=== PATIENT | female | born 1985 | race Caucasian/White ===

== ENCOUNTER → 2017-12-08 09:49 | Outpatient (CLI) | payer OTHER, SELFPAY ==
[2017-12-08 14:32] LABS: Amphetamine/Metha Screen,Urine Negative ng/mL (<1000); Barbiturates Screen,Urine Negative ng/mL (<200); Benzodiazepines Screen,Urine Positive ng/mL (200); Cannabinoid Screen,Urine Positive ng/mL (<50); Cocaine Screen,Urine Negative ng/g (<300); Methadone Screen,Urine Negative ng/mL (<300); Opiate Screen,Urine Negative ng/mL (<300); Phencyclidine Screen,Urine Negative ng/mL (<25)
== END ==
PROVIDERS: Visit Provider Emergency Medicine
DX: Z79.899 Other long term (current) drug therapy (principal)
CPT/HCPCS: 80305

== ENCOUNTER → 2018-03-07 10:49 | Outpatient (REF) | payer OTHER, SELFPAY ==
[2018-03-07 14:10] LABS: Amphetamine/Metha Screen,Urine Negative ng/mL (<1000); Barbiturates Screen,Urine Negative ng/mL (<200); Benzodiazepines Screen,Urine Positive ng/mL (200); Cannabinoid Screen,Urine Positive ng/mL (<50); Cocaine Screen,Urine Negative ng/g (<300); Methadone Screen,Urine Negative ng/mL (<300); Opiate Screen,Urine Negative ng/mL (<300); Phencyclidine Screen,Urine Negative ng/mL (<25)
== END ==
LOC: LAB 10:49
PROVIDERS: Visit Provider Emergency Medicine
DX: Z79.899 Other long term (current) drug therapy (principal)
CPT/HCPCS: 80305

== ENCOUNTER → 2018-05-29 15:49 | Outpatient (REF) | payer OTHER, SELFPAY ==
[2018-05-29 18:23] LABS: Amphetamine/Metha Screen,Urine Negative ng/mL (<1000); Barbiturates Screen,Urine Negative ng/mL (<200); Benzodiazepines Screen,Urine Positive ng/mL (<200); Cannabinoid Screen,Urine Positive ng/mL (<50); Cocaine Screen,Urine Negative ng/mL (<300); Methadone Screen,Urine Negative ng/mL (<300); Opiate Screen,Urine Negative ng/mL (<300); Phencyclidine Screen,Urine Negative ng/mL (<25)
== END ==
LOC: LAB 15:49
PROVIDERS: Visit Provider Nurse Practitioner Family
DX: Z79.899 Other long term (current) drug therapy (principal)
CPT/HCPCS: 80305

== ENCOUNTER → 2018-08-24 17:47 | Outpatient (CLI) | payer OTHER, SELFPAY ==
[2018-08-24 18:41] LABS: Basophils % 0.4 % (0.1-2.0); Eosinophils # 0.3 K/mm3 (0.0-0.4); Hematocrit 44.4 % (37.0-47.0); Hemoglobin 14.2 g/dL (12.2-16.2); Lymphocytes # 2.3 K/mm3 (0.7-4.5); Mean Corpuscular Hemoglobin 31.5 pg (27.0-31.2); Mean Corpuscular Volume 98.5 fl (81-99); Mean Platelet Volume 9.3 fl (7.4-10.4); Monocytes # 0.4 K/mm3 (0.1-1.0); Monocytes % 5.8 % (1.7-9.3); Neutrophils # 3.4 K/mm3 (1.8-7.8); Neutrophils % 52.8 % (37.0-80.0); Platelet Count 59 K/mm3 (142-424); Red Blood Count 4.51 M/mm3 (4.20-5.40); Red Cell Distribution Width 13.1 % (11.5-17.5); White Blood Count 6.4 K/mm3 (4.8-10.8)
[2018-08-24 19:03] LABS: Alanine Aminotransferase 23 U/L (12-78); Albumin Level 3.8 gm/dL (3.4-5.0); Albumin/Globulin Ratio 1.2 (1.1-1.8); Alkaline Phosphatase 66 U/L (46-116); Anion Gap 14.1 mEq/L (5-15); Aspartate Amino Transferase 12 U/L (15-37); Bilirubin,Total 0.5 mg/dL (0.2-1.0); Blood Urea Nitrogen 8 mg/dL (7-18); Calcium 8.4 mg/dL (8.5-10.1); Carbon Dioxide 27 mmol/L (21.0-32.0); Chloride 101 mmol/L (98-107); Chol/HDL Ratio 3.4 (1-3.5); Cholesterol 191 mg/dL (140-200); Creatinine,Serum 0.67 mg/dL (0.55-1.02); Estimated Glomerular Filt Rate 103 ml/min (>60); Free T4 (Free Thyroxine) 0.81 ng/dl (0.76-1.46); GFR (African American) 125 ML/MIN (>60); Globulin 3.3 gm/dl (1.3-3.2); Glucose 87 mg/dL (74-106); HDL Cholesterol 56 mg/dL (29-89); LDL Cholesterol 117 mg/dL (0-130); Potassium 4.1 mmoL/L (3.5-5.1); Sodium 138 mmol/L (136-145); Thyroid Stimulating Hormone 0.79 uIU/ml (0.358-3.740); Total Protein,Serum 7.1 gm/dL (6.4-8.2); Triglycerides 91 mg/dL (30-200); VLDL Cholesterol 18 mg/dL (0-40)
[2018-08-24 19:40] LABS: Amphetamine/Metha Screen,Urine Negative ng/mL (<1000); Barbiturates Screen,Urine Negative ng/mL (<200); Benzodiazepines Screen,Urine Positive ng/mL (<200); Cannabinoid Screen,Urine Positive ng/mL (<50); Cocaine Screen,Urine Negative ng/mL (<300); Methadone Screen,Urine Negative ng/mL (<300); Opiate Screen,Urine Negative ng/mL (<300); Phencyclidine Screen,Urine Negative ng/mL (<25)
[2018-08-27 11:18] LABS: Vitamin D 25 Hydroxy 16.4 ng/mL (30.0-100.0)
== END ==
PROVIDERS: Visit Provider Emergency Medicine
DX: I10 Essential (primary) hypertension (principal); Z79.899 Other long term (current) drug therapy
CPT/HCPCS: 80053; 80061; 80305; 82652; 84439; 84443; 85025

== ENCOUNTER → 2018-11-23 17:52 | Outpatient (CLI) | payer OTHER, SELFPAY ==
[2018-11-23 19:23] LABS: Amphetamine/Metha Screen,Urine Negative ng/mL (<1000); Barbiturates Screen,Urine Negative ng/mL (<200); Benzodiazepines Screen,Urine Positive ng/mL (<200); Cannabinoid Screen,Urine Positive ng/mL (<50); Cocaine Screen,Urine Negative ng/mL (<300); Methadone Screen,Urine Negative ng/mL (<300); Opiate Screen,Urine Negative ng/mL (<300); Phencyclidine Screen,Urine Negative ng/mL (<25)
== END ==
PROVIDERS: Visit Provider Emergency Medicine
DX: Z79.899 Other long term (current) drug therapy (principal)
CPT/HCPCS: 80305

== ENCOUNTER 2021-06-29 15:10 | Emergency (ER) | payer OTHER, SELFPAY ==
[2021-06-29 15:25] VITALS: BP 114/62; PULSE 82; RESP 16; TEMP 36.9; O2SAT 99; BMI 23.0
--- NOTE | 2021-06-29 16:06 | HMH.EDUTC ---
[facility] [place] Disposition Clinical Impression: Low back pain Qualifiers: Chronicity: acute Back pain laterality: left Sciatica presence: with sciatica Sciatica laterality: sciatica of left side Qualified Code(s): M54.42 - Lumbago with sciatica, left side Disposition: Home, Self-Care Condition on Discharge: Good Instructions: Low Back Pain, DI for Low Back Pain Additional Instructions: Go home and rest. It would be best if you rested tomorrow too. No heavy lifting. No twisting. Take the oral medications as directed. The muscle relaxer (cyclobenzaprine--Flexeril) will make you drowsy, so don't drive or operate heavy machinery after taking it. Follow up with your regular doctor. GO TO THE ER FOR ANY WORSENING SYMPTOMS OR CONCERN, ESPECIALLY BOWEL OR BLADDER ISSUES, SADDLE AREA NUMBNESS, FEVER, ETC Prescriptions: Cyclobenzaprine HCl [Cyclobenzaprine 10mg Tab] 10 mg PO BIDP PRN #20 tab PRN Reason: Muscle Spasm Transmission Status: Pending to [facility] Naproxen [Naproxen 500mg tab] 500 mg PO BIDP PRN #30 tab PRN Reason: Moderate Pain Transmission Status: Pending to [facility] Referrals: Juan Pang MD [Primary Care Provider] - Time of Disposition: 16:12 Medical Decision Making - Medical Records Medical records reviewed: No: I reviewed the patient's medical records. - Jaya Inquiry Pt receiving controlled substance: No Vital Signs: 06/29/21 15:25 Temperature 98.5 F Temperature Source Oral Pulse Rate [Left] 82 Respiratory Rate 16 Blood Pressure [Right Arm] 114/62 Blood Pressure Mean [Right Arm] 79 02 Sat by Pulse Oximetry 99 Orders (Tests/Meds): ED MEDICATIONS Discontinued Medications Generic Name Dose Route Start Last Admin Trade Name Freq PRN Reason Stop Dose Admin Ketorolac Tromethamine 60 mg 06/29/21 15:58 Ketorolac 60mg/2ml Vial IM 06/29/21 15:59 ONCE ONE [facility] [place] HPI - General Stated complaint: a/o 06/26 back injury Time Seen by Provider: 06/29/21 16:06 Mode of Arrival: Ambulatory Source of Information: Patient Limitations: No Limitations Description of Symptoms (Recalled from Triage Doc. by RN): pt was taking a pool down monday and is now having lower back pain. HEENT Symptoms (Recalled from RN notes): No Resp Symptoms (Recalled from RN notes): No Skin Symptoms (Recalled from RN notes): No MS Symptoms (Recalled from RN notes): Yes (lower back pain) Functional Status (Recalled from RN notes): na - History of Present Illness Provider Complaint: She states that for the past 3 days she has had low back pain. She was lifting one of her children when she felt something pull in her left lower back. Not long after that she began to have low back pain that radiates down her left leg. She denies any bowel or bladder issues. She denies any saddle area numbness. - Related Data Previous Rx's Medication Instructions Recorded loratadine 10 mg tablet See Rx Instructions .ROUTE 02/18/19 .COMPLEX #90 tab guaiFENesin [Mucinex 600mg tablet] 1 - 2 tab PO BIDP PRN #30 12/24/19 tab.er.12h baclofen 10 mg tablet 10 mg PO BID #30 tab 07/09/20 cholecalciferol (vitamin D3) 25 See Rx Instructions .ROUTE 07/23/20 mcg (1,000 unit) tablet .COMPLEX #90 each hydroxyzine HCl 25 mg tablet See Rx Instructions .ROUTE 03/29/21 .COMPLEX #90 tab omeprazole 20 mg capsule,delayed See Rx Instructions .ROUTE 03/29/21 release .COMPLEX #90 cap fluticasone propionate 50 See Rx Instructions .ROUTE 04/12/21 mcg/actuation nasal .COMPLEX #16 gram spray,suspension alprazolam 0.5 mg tablet 0.5 mg PO TID #90 tab 05/26/21 bisoprolol fumarate 5 mg tablet See Rx Instructions .ROUTE 05/26/21 .COMPLEX #90 tab divalproex 250 mg tablet,delayed 250 mg PO DAILY #90 tab 05/26/21 release divalproex 500 mg tablet,delayed 500 mg PO HS #90 tab 05/26/21 release ergocalciferol (vitamin D2) 1,250 See Rx Instructions .ROUTE 05/26/21 mcg (50,000 unit) capsule .COMPLEX #14 ca
[2021-06-29 16:23] VITALS: BP 114/62; PULSE 82; RESP 18; TEMP 36.9
== END 2021-06-29 16:26 | disposition home or self-care (01) ==
PROVIDERS: Emergency Provider Nurse Practitioner Family; PCP Emergency Medicine
DX: M54.42 Lumbago with sciatica, left side (principal); K21.9 Gastro-esophageal reflux disease without esophagitis; I10 Essential (primary) hypertension; F41.9 Anxiety disorder, unspecified; F17.210 Nicotine dependence, cigarettes, uncomplicated
CPT/HCPCS: 96372; 99202; G0463

== ENCOUNTER → 2021-10-27 14:36 | Outpatient (CLI) | payer OTHER, SELFPAY | PROVIDERS: Visit Provider Nurse Practitioner | DX: U07.1 COVID-19 (principal) | CPT/HCPCS: C9803; U0003; U0005 ==

== ENCOUNTER 2021-11-17 09:33 | Emergency (ER) | payer OTHER, SELFPAY ==
--- NOTE | 2021-11-17 09:54 | XR_ITS ---
FINAL REPORT CLINICAL HISTORY: pain FINDINGS: Three views were obtained. There is no acute fracture. There is no malalignment. The disc spaces are maintained. IMPRESSION: No acute process. Reviewed, Interpreted and Dictated by Kwadwo Giron III, MD Transcribed by Daniel Fierro Authenticated by Kwadwo Giron III, MD on 11/17/2021 03:23:00 PM [facility]
[2021-11-17 09:57] VITALS: BP 123/82; PULSE 91; RESP 18; TEMP 36.8; O2SAT 98; BMI 23.3
--- NOTE | 2021-11-17 10:14 | HMH.EDUTC ---
[facility] [place] Clinical Impression: Low back pain Qualifiers: Chronicity: unspecified Back pain laterality: midline Sciatica presence: without sciatica Qualified Code(s): M54.50 - Low back pain, unspecified Disposition: Home, Self-Care Condition on Discharge: Good Instructions: Low Back Pain (Alternative Therapy), DI for Muscle Spasm Additional Instructions: *Etodolac rafa 8 hours with meal as needed for pain/inflammation *Remember you had a Toradol shot in the clinic today, which is similar to Etodolac so do not start until 9pm tonight *Not additional anti-inflammatory like Ibuprofen motrin, aleve, advil with the above amount of Etodolac. You can still take Tylenol every 4 hours as needed if you need something else for pain *Ice 20 minutes every 2 hours for the first 48 hours after the initial injury followed by moist heat every 20 minutes 3-4 times a day to affected area *Muscle relaxer every 8 hours as needed for muscle spasms but remember, it WILL cause drowsiness You cannot take it and drive, operate machinery or care for small children. *Keep this area active, no movement leads to more stiffness, However take it easy and avoid heavy lifting pushing or pulling *Follow up with you family doctor if no improvement for further treatment Prescriptions: Etodolac 200 mg PO Q8HP PRN #15 cap PRN Reason: Moderate Pain Transmission Status: Pending to [facility] Cyclobenzaprine HCl [Flexeril 10mg tablet] 10 mg PO TID PRN #15 tab PRN Reason: Muscle Spasm Transmission Status: Pending to [facility] Referrals: Juan Pang MD [Primary Care Provider] - As needed Time of Disposition: 11:05 Medical Decision Making - Jaya Inquiry Pt receiving controlled substance: No Jaya was queried for this patient: No Vital Signs: 11/17/21 09:57 Temperature 98.2 F Temperature Source Oral Pulse Rate [Left] 91 H Respiratory Rate 18 Blood Pressure [Right Arm] 123/82 Blood Pressure Mean [Right Arm] 95 02 Sat by Pulse Oximetry 98 Orders (Tests/Meds): ED MEDICATIONS Discontinued Medications Generic Name Dose Route Start Last Admin Trade Name Freq PRN Reason Stop Dose Admin Ketorolac Tromethamine 60 mg 11/17/21 10:24 11/17/21 10:48 Ketorolac 60mg/2ml Vial IM 02/09/22 10:25 60 mg ONCE ONE [facility] ORDERS Category Date Time Status XR lumbar spine 2-3V Stat Exams 11/17/21 09:54 Taken - Radiology Data #1 Image(s): L-Spine Image Reviewed: Yes I reviewed the patient's radiology image w/the ED provider Preliminary Findings: Normal/NAD, No Fracture Seen Medical Decision Narrative: Patient states that she has taken NSAIDS and Flexeril in the past without complications or reactions [facility] [place] - General Stated complaint: lower back pain Time Seen by Provider: 11/17/21 10:14 Mode of Arrival: Ambulatory Source of Information: Patient Limitations: No Limitations Description of Symptoms (Recalled from Triage Doc. by RN): pt c/o lower back pain after bending over 2 days ago. HEENT Symptoms (Recalled from RN notes): No Resp Symptoms (Recalled from RN notes): No Skin Symptoms (Recalled from RN notes): No MS Symptoms (Recalled from RN notes): Yes Functional Status (Recalled from RN notes): wnl - History of Present Illness Provider Complaint: Patient states that she bent over a few days ago and she felt something pull in her lower back area States that ever since she has been having pain when she bends, sits or moves certain ways States that she feels like she cant stand straight due to pain hurting worse Denies known injury denies falling - Related Data Previous Rx's Medication Instructions Recorded loratadine 10 mg tablet See Rx Instructions .ROUTE 02/18/19 .COMPLEX #90 tab omeprazole 20 mg capsule,delayed See Rx Instructions .ROUTE 03/29/21 release .COMPLEX #90 cap fluticasone propionate 50 See Rx Instructions .ROUTE 04/12/21 mcg/actuation nasal .COMPLEX #16 gra
[2021-11-17 11:23] VITALS: BP 123/82; PULSE 91; RESP 18; TEMP 36.8
== END 2021-11-17 11:24 | disposition home or self-care (01) ==
PROVIDERS: Emergency Provider Nurse Practitioner; PCP Emergency Medicine
DX: M54.50 Low back pain, unspecified (principal); I10 Essential (primary) hypertension; F17.210 Nicotine dependence, cigarettes, uncomplicated; K21.9 Gastro-esophageal reflux disease without esophagitis
CPT/HCPCS: 72100; 96372; 99203; G0463

== ENCOUNTER → 2021-12-17 08:14 | Outpatient (CLI) | payer OTHER, SELFPAY ==
--- NOTE | 2021-12-17 08:15 | MR_ITS ---
FINAL REPORT CLINICAL HISTORY: chronic lbp x's months. nki. pt is unable to lay down on back. radiculopathy. FINDINGS: Multiplanar MR imaging of the lumbar spine was performed without contrast. On the sagittal T2-weighted images, disc degeneration is seen at L5-S1 with there is also disc space narrowing. A hemangioma is seen in the T12 vertebral body. The vertebral alignment is normal. There is no evidence of fracture. No bony mass is identified. The conus is seen at approximately the L1 level and has an unremarkable appearance. L1-2: There is no significant canal stenosis or neural foraminal narrowing. L2-3: There is no significant canal stenosis or neural foraminal narrowing. L3-4: There is no significant canal stenosis or neural foraminal narrowing. L4-5: There is an annular disc bulge without significant canal stenosis or neural foraminal narrowing. L5-S1: Annular disc bulge and right paracentral extruded disc. There is right S1 nerve root impingement and right lateral recess stenosis. There is severe central canal stenosis with AP diameter of the thecal sac measuring 4 mm. There is moderate right and mild left neuroforaminal narrowing. IMPRESSION: Multilevel degenerative disc disease with right paracentral extruded disc at L5-S1 with right S1 nerve root impingement,, right lateral recess stenosis and severe central canal stenosis. Reviewed, Interpreted and Dictated by Kwadwo Giron III, MD Transcribed by Sarah Kraft Authenticated by Kwadwo Giron III, MD on 12/17/2021 12:54:07 PM [facility]
== END ==
PROVIDERS: PCP Emergency Medicine; Visit Provider Emergency Medicine
DX: M54.50 Low back pain, unspecified (principal)
CPT/HCPCS: 72148; 76376

== ENCOUNTER → 2022-01-26 10:13 | Outpatient (CLI) | payer OTHER, SELFPAY ==
[2022-01-26 15:16] LABS: Amphetamine/Metha Screen,Urine Negative ng/ml (<1000)
[2022-01-26 15:17] LABS: Barbiturates Screen,Urine Negative ng/ml (<200); Benzodiazepines Screen,Urine Positive ng/ml (<200)
[2022-01-26 15:18] LABS: Cannabinoid Screen,Urine Positive ng/ml (<50); Cocaine Screen,Urine Negative ng/ml (<300)
[2022-01-26 15:19] LABS: Methadone Screen,Urine Negative ng/ml (<300)
[2022-01-26 15:21] LABS: Opiate Screen,Urine Positive ng/ml (<300)
[2022-01-26 15:22] LABS: Phencyclidine Screen,Urine Negative ng/ml (<25)
== END ==
PROVIDERS: PCP Emergency Medicine; Visit Provider Emergency Medicine
DX: M54.50 Low back pain, unspecified (principal)
CPT/HCPCS: 80305

== ENCOUNTER → 2022-03-15 14:31 | Outpatient (CLI) | payer OTHER, SELFPAY ==
--- NOTE | 2022-03-15 14:32 | CA_ITS ---
APPROVED REPORT EXAM: Comprehensive 2D, Doppler, and color-flow Echocardiogram Senior Corporate Accountant: Karma Lim, MOISES, RVS Ht: 5 ft 4 in Wt: 125lbs BSA: 1.60 BP: 112/75 mmHg Indications: Pre-op clearance- rupture lumbar disc, Family Hx-HD, SOB, HX-SVT/ablation@age 18 Echo Enhancing Agent Comments: TDS-limited acoustic window 2D Dimensions Aortic Root 2.43 cm LA Volume 24.90 mL Left Atrium 1.76 cm LA Volume Index [id number] mL/m2 (M/F) 16-34 LVOT 1.68 cm (M/F) 1.5-2.5 M-Mode Dimensions RVDd 1.45 cm (0.9-2.6) LA Diam 1.79 cm (1.9-4.0) LVDd 4.34 cm (3.5-5.7) Ao Diam 2.83 cm (2.0-3.7) LVDs 2.97 cm (3.5-5.7) IVSd 0.83 cm (0.6-1.1) PWd 0.71 cm (0.6-1.1) EF (Teich) 59.70% EPSs 0.28 cm FS 31.60% EDV (Teich) 84.90 mL TAPSE 1.91 (<1.7) ESV (Teich) 34.20 mL LV Diastology E Decel Time 257.00 (160-240 msec) E/A Ratio 2.23 MED E' 12.60 (< 7 cm/sec) MED A' 9.30 cm/s E'/MED E' Ratio 5.89 (>14) LAT E' 15.50 (<10 cm/sec) LAT A' 6.10 cm/s E/LAT E' Ratio 4.79 (>14) Aortic Valve LVOT Max 96.00 (70-110 cm/s) LVOT VTI 20.68 cm AoV Peak Manan. 116.00 (50-130 cm/s) AO Peak GR. 5.40 mmHg AO Mean GR. 2.70 (<5 mmHg) AO VTI 27.12 (18-25 cm) PINKY (VTI) 1.69 (2.5-4.5 cm2) Mitral Valve MV A Velocity 33.00 (40-130 cm/s) E/A Ratio 2.23 MV Decel. Time 257.00 (160-240 ms) Pulmonary Valve PV Peak Velocity 92.00 (50-150 cm/s) Tricuspid Valve TR P. Velocity 160.00 cm/s Left Ventricle Left atrium normal size, left ventricle is normal size, no concentric left ventricular hypertrophy, estimated ejection fraction 55% with no regional wall motion abnormality, diastolic parameters are within normal range. Right Ventricle Right atrium and right ventricle are normal size and contractility. Aortic Valve Aortic valve is grossly normal there is no aortic stenosis or aortic insufficiency. Mitral Valve Mitral valve grossly normal, there is no mitral stenosis or mitral regurgitation. Tricuspid Valve Tricuspid valve grossly normal, there is no tricuspid stenosis or tricuspid regurgitation. Pulmonic Valve Pulmonic valve is poorly visualized. Great Vessels Aortic root is normal size. Inferior vena cava is normal size with normal inspiratory collapse. Pericardium No significant pericardial effusion noted. Conclusion 1. Normal left ventricular size preserved left ventricular systolic function, estimated ejection fraction 55% with no regional wall motion abnormality, diastolic parameters are within normal range. 2. No significant pericardial effusion. 3. Inferior vena cava is normal size with normal inspiratory collapse. Electronically signed by : Librado Vuong MD 03/16/2022 12:17:29
--- NOTE | 2022-03-15 14:46 | XR_ITS ---
FINAL REPORT CLINICAL HISTORY: Patient to have back surgery for buldging disc. She had lab work done which revealed elevated white blood cell count. She is a smoker and has had a cardiac ablation. FINDINGS: Two views of the chest were obtained. The heart size and pulmonary vascularity are within normal limits. The mediastinum is normal. No acute pulmonary abnormality is identified. There is no pneumothorax. The bony thorax is intact. IMPRESSION: No active cardiopulmonary disease. Reviewed, Interpreted and Dictated by Kwadwo Giron III, MD Transcribed by Marcie Lee Authenticated and [facility]
[2022-03-15 16:00] LABS: Basophils # 0.1 K/mm3 (0-0.2); Basophils % 0.7 % (0.1-2.0); Eosinophils # 0.1 K/mm3 (0.0-0.4); Eosinophils % 1.2 % (0.1-12.0); Hematocrit 42.4 % (37.0-47.0); Lymphocytes # 2.2 K/mm3 (0.7-4.5); Lymphocytes % 21.7 % (10-50); Mean Corpuscular Hemoglobin 32.5 pg (27.0-31.2); Mean Corpuscular Volume 98.5 fl (81-99); Monocytes # 0.4 K/mm3 (0.1-1.0); Monocytes % 4.3 % (1.7-9.3); Neutrophils # 7.2 K/mm3 (1.8-7.8); Neutrophils % 72.1 % (37.0-80.0); Platelet Count 338 K/mm3 (142-424); Red Cell Distribution Width 13.3 % (11.5-17.5)
== END ==
PROVIDERS: Orthopaedic Surgery; PCP Emergency Medicine; Visit Provider Physician Assistant
DX: Z01.818 Encounter for other preprocedural examination (principal); R07.9 Chest pain, unspecified; I47.1 Supraventricular tachycardia
CPT/HCPCS: 36415; 71046; 85025; 93306

== ENCOUNTER → 2022-03-24 06:57 | Outpatient (CLI) | payer OTHER, SELFPAY ==
[2022-03-23 18:30] LABS: Amphetamine/Metha Screen,Urine Negative ng/ml (<1000); Barbiturates Screen,Urine Negative ng/ml (<200)
[2022-03-23 18:32] LABS: Benzodiazepines Screen,Urine Positive ng/ml (<200)
[2022-03-23 18:33] LABS: Cannabinoid Screen,Urine Positive ng/ml (<50); Cocaine Screen,Urine Negative ng/ml (<300)
[2022-03-23 18:34] LABS: Methadone Screen,Urine Negative ng/ml (<300)
[2022-03-23 18:35] LABS: Opiate Screen,Urine Positive ng/ml (<300); Phencyclidine Screen,Urine Negative ng/ml (<25)
== END ==
PROVIDERS: PCP Emergency Medicine; Visit Provider Emergency Medicine
DX: Z79.899 Other long term (current) drug therapy (principal)
CPT/HCPCS: 80305

== ENCOUNTER → 2022-05-20 16:21 | Outpatient (CLI) | payer OTHER, SELFPAY ==
[2022-05-20 16:08] LABS: Amphetamine/Metha Screen,Urine Negative ng/ml (<1000)
[2022-05-20 16:09] LABS: Barbiturates Screen,Urine Negative ng/ml (<200)
[2022-05-20 16:11] LABS: Benzodiazepines Screen,Urine Positive ng/ml (<200); Cannabinoid Screen,Urine Positive ng/ml (<50)
[2022-05-20 16:12] LABS: Cocaine Screen,Urine Negative ng/ml (<300)
[2022-05-20 16:13] LABS: Methadone Screen,Urine Negative ng/ml (<300); Opiate Screen,Urine Positive ng/ml (<300)
[2022-05-20 16:14] LABS: Phencyclidine Screen,Urine Negative ng/ml (<25)
== END ==
PROVIDERS: Visit Provider Emergency Medicine
DX: M47.816 Spondylosis without myelopathy or radiculopathy, lumbar region (principal)
CPT/HCPCS: 80305

== ENCOUNTER 2022-05-31 18:45 | Emergency (ER) | payer OTHER, SELFPAY ==
[2022-05-31 19:23] VITALS: BP 129/84; PULSE 86; RESP 16; TEMP 36.8; O2SAT 99; BMI 19.3
[2022-05-31 19:25] LABS: UTC Influenza A Antigen Negative (Negative)
[2022-05-31 19:25] LABS: UTC Strep Screen (Rapid) Positive (Negative)
[2022-05-31 19:26] LABS: UTC Influenza B Antigen Negative (Negative)
--- NOTE | 2022-05-31 19:47 | HMH.EDUTC ---
[facility] [place] Clinical Impression: Viral syndrome, Exposure to COVID-19 virus Disposition: Home, Self-Care Condition on Discharge: Good Instructions: DI for COVID-19 (Suspected or Confirmed ), Preventing the Spread of Coronavirus Discharge Instructions Additional Instructions: Drink plenty of fluids. Take tylenol or ibuprofen for pain or fever. Take the medications as directed. Follow up with your regular doctor. GO TO THE ER FOR ANY WORSENING SYMPTOMS Quarantine until you know the results of your covid-19 test. Notify your school or workplace of your results and follow their instructions regarding return to work/school. Prescriptions: Ondansetron [Zofran 4mg ODT] 4 mg PO Q8HP PRN #12 tab PRN Reason: Nausea Transmission Status: Received by [facility] Benzonatate [Benzonatate 100mg cap] 100 mg PO TIDP PRN #30 cap PRN Reason: Cough Transmission Status: Received by [facility] Referrals: Juan Pang MD [Primary Care Provider] - Time of Disposition: 19:49 Medical Decision Making - Medical Records Medical records reviewed: No: I reviewed the patient's medical records. - Jaya Inquiry Pt receiving controlled substance: No Vital Signs: 05/31/22 19:23 05/31/22 19:52 Temperature 98.3 F 98.3 F Temperature Source Oral Pulse Rate 86 Pulse Rate [Left] 86 Respiratory Rate 16 16 Blood Pressure 129/84 Blood Pressure [Right Arm] 129/84 Blood Pressure Mean [Right Arm] 99 02 Sat by Pulse Oximetry 99 - Lab Data Lab Results 05/31/22 19:17: Strep Scn Rapid Clinic Positive A 05/31/22 19:18: Influenza Type A Ag Negative, Influenza Type B Ag Negative Orders (Tests/Meds): ORDERS Category Date Time Status Covid-19 Nasal PCR ([facility]) Routine Lab 05/31/22 19:06 Received [facility] [place] HPI - General Stated complaint: exposed covid test sore throat,CHANEY Bronson Time Seen by Provider: 05/31/22 19:48 Mode of Arrival: Ambulatory Source of Information: Patient Limitations: No Limitations Description of Symptoms (Recalled from Triage Doc. by RN): patient comes in with fever, chills, body aches, headache. symptoms have been ongoing since monday. HEENT Symptoms (Recalled from RN notes): Yes Resp Symptoms (Recalled from RN notes): Yes Skin Symptoms (Recalled from RN notes): No MS Symptoms (Recalled from RN notes): No Functional Status (Recalled from RN notes): n/a - History of Present Illness Provider Complaint: She states that for the past 2 day she has had sinus congestion and she has felt bad. - Related Data Previous Rx's Medication Instructions Recorded fluticasone propionate 50 See Rx Instructions .ROUTE 04/12/21 mcg/actuation nasal .COMPLEX #16 gram spray,suspension cholecalciferol (vitamin D3) 25 See Rx Instructions .ROUTE 07/28/21 mcg (1,000 unit) tablet .COMPLEX #90 tablet diclofenac sodium 1 % topical gel 2 g TOPICAL QID #100 g 12/08/21 lidocaine 5 % topical patch 1 patch TOPICAL DAILY #30 each 12/08/21 tizanidine 4 mg tablet 4 mg PO TID #63 tab 12/08/21 bisoprolol fumarate 5 mg tablet See Rx Instructions .ROUTE 02/17/22 .COMPLEX #90 tab ergocalciferol (vitamin D2) 1,250 See Rx Instructions .ROUTE 03/18/22 mcg (50,000 unit) capsule .COMPLEX #14 cap omeprazole 20 mg capsule,delayed See Rx Instructions .ROUTE 03/18/22 release .COMPLEX #90 cap alprazolam 0.5 mg tablet 0.5 mg PO TID #90 tab 05/12/22 divalproex 250 mg tablet,delayed 250 mg PO DAILY #90 tab 05/12/22 release divalproex 500 mg tablet,delayed 500 mg PO HS #90 tab 05/12/22 release quetiapine 100 mg tablet See Rx Instructions .ROUTE 05/12/22 .COMPLEX #150 tab hydrocodone 7.5 mg-acetaminophen 1 tab PO QID PRN #120 tab 05/20/22 325 mg tablet Benzonatate [Benzonatate 100mg 100 mg PO TIDP PRN #30 cap 05/31/22 cap] Ondansetron [Zofran 4mg ODT] 4 mg PO Q8HP PRN #12 tab 05/31/22 Allergies Allergy/AdvReac Type Severity Reaction Status Date / Time meperidine [
[2022-05-31 19:52] VITALS: BP 129/84; PULSE 86; RESP 16; TEMP 36.8
== END 2022-05-31 19:53 | disposition home or self-care (01) ==
PROVIDERS: Emergency Provider Nurse Practitioner Family; PCP Emergency Medicine
DX: U07.1 COVID-19 (principal)
CPT/HCPCS: 87804; 87880; 99212; C9803; G0463; U0003; U0005

== ENCOUNTER → 2022-07-18 11:45 | Outpatient (CLI) | payer OTHER, SELFPAY ==
[2022-07-18 15:17] LABS: Amphetamine/Metha Screen,Urine Negative ng/ml (<1000); Barbiturates Screen,Urine Negative ng/ml (<200)
[2022-07-18 15:18] LABS: Benzodiazepines Screen,Urine Positive ng/ml (<200); Cannabinoid Screen,Urine Positive ng/ml (<50)
[2022-07-18 15:19] LABS: Cocaine Screen,Urine Negative ng/ml (<300)
[2022-07-18 15:20] LABS: Methadone Screen,Urine Negative ng/ml (<300); Opiate Screen,Urine Positive ng/ml (<300)
[2022-07-18 15:21] LABS: Phencyclidine Screen,Urine Negative ng/ml (<25)
== END ==
PROVIDERS: PCP Emergency Medicine; Visit Provider Emergency Medicine
DX: Z79.899 Other long term (current) drug therapy (principal)
CPT/HCPCS: 80305

== ENCOUNTER → 2022-08-22 13:25 | Outpatient (CLI) | payer OTHER, SELFPAY ==
[2022-08-22 18:17] LABS: Benzodiazepines Screen,Urine Positive ng/ml (<200)
[2022-08-22 18:18] LABS: Barbiturates Screen,Urine Negative ng/ml (<200)
[2022-08-22 18:19] LABS: Cannabinoid Screen,Urine Positive ng/ml (<50); Methadone Screen,Urine Negative ng/ml (<300)
[2022-08-22 18:20] LABS: Cocaine Screen,Urine Negative ng/ml (<300)
[2022-08-22 18:21] LABS: Opiate Screen,Urine Positive ng/ml (<300); Phencyclidine Screen,Urine Negative ng/ml (<25)
[2022-08-22 18:25] LABS: Amphetamine/Metha Screen,Urine Negative ng/ml (<1000)
== END ==
PROVIDERS: PCP Emergency Medicine; Visit Provider Emergency Medicine
DX: Z79.899 Other long term (current) drug therapy (principal)
CPT/HCPCS: 80305

== ENCOUNTER → 2022-09-09 08:11 | Outpatient (CLI) | payer OTHER, SELFPAY ==
--- NOTE | 2022-09-09 08:11 | MR_ITS ---
FINAL REPORT CLINICAL HISTORY: Follow up imaging from surgery. RIGHT SIDED LOW BACK PAIN. RIGHT LEG PAIN. NO INJURY OR TRAUMA. COMPARISON: December 2021 FINDINGS: Multiplanar MR imaging of the lumbar spine was performed without contrast. On the sagittal T2-weighted images, there is abnormal decreased signal in the L5-S1 disc. The vertebrae are of normal height. The vertebral alignment is normal. L1-2: There is no significant canal stenosis or neural foraminal narrowing. L2-3: There is no significant canal stenosis or neural foraminal narrowing. L3-4: Moderate facet hypertrophy. There is no significant canal stenosis or neural foraminal narrowing. L4-5: Moderate facet hypertrophy. There is no significant canal stenosis or neural foraminal narrowing. L5-S1: The previous large right paracentral disc extrusion shows significant improvement. There is now a broad-based midline and right paracentral disc protrusion with mild compromise on the spinal canal. Postcontrast imaging was not obtained. IMPRESSION: Interval improvement in previous large right paracentral disc extrusion with persistent broad-based midline and right paracentral disc protrusion and mild compromise on the spinal canal. Reviewed, Interpreted and Dictated by Kvng Alarcon MD Transcribed by Daniel Fierro Authenticated and [facility]
== END ==
PROVIDERS: PCP Emergency Medicine; Visit Provider Emergency Medicine
DX: M54.50 Low back pain, unspecified (principal); M47.816 Spondylosis without myelopathy or radiculopathy, lumbar region
CPT/HCPCS: 72148; 76376

== ENCOUNTER → 2022-09-14 14:00 | Outpatient (CLI) | payer OTHER, SELFPAY ==
[2022-09-14 18:09] LABS: Alanine Aminotransferase 21 U/L (12-78); Albumin/Globulin Ratio 1.5 (1.1-1.8); Alkaline Phosphatase 109 U/L (38-126); Anion Gap 10.5 mEq/L (5-15); Aspartate Amino Transferase 34 U/L (14-36); Blood Urea Nitrogen 9 mg/dl (7-17); Calcium 9.4 mg/dl (8.4-10.2); Carbon Dioxide 24 mmol/L (22.0-30.0); Chloride 105 mmol/L (98-107); Chol/HDL Ratio 3.4 (1-3.5); Cholesterol 195 mg/dl (140-200); Estimated Glomerular Filt Rate 96 ml/min (>60); GFR (African American) 116 ML/MIN (>60); Globulin 2.6 g/dL (1.3-3.2); Glucose 107 mg/dl (74-100); HDL Cholesterol 58 mg/dl (40-60); Potassium 4.5 mmoL/L (3.5-5.1); Sodium 135 mmol/L (136-145); Total Protein,Serum 6.6 g/dl (6.3-8.2); Triglycerides 104 mg/dl (30-150); VLDL Cholesterol 21 mg/dL (0-40)
[2022-09-14 18:21] LABS: Direct LDL Cholesterol 106.49 mg/dL (100-129)
[2022-09-14 18:22] LABS: Bilirubin,Total < 0.1 mg/dl (0.2-1.3)
[2022-09-14 18:40] LABS: Thyroid Stimulating Hormone 1.08 uIU/mL (0.465-4.68)
== END ==
PROVIDERS: PCP Emergency Medicine; Visit Provider Emergency Medicine
DX: I10 Essential (primary) hypertension (principal); Z79.899 Other long term (current) drug therapy
CPT/HCPCS: 80053; 80061; 84439; 84443

== ENCOUNTER 2022-11-22 09:22 | Emergency (ER) | payer OTHER, SELFPAY ==
[2022-11-22 09:30] LABS: UTC Strep Screen (Rapid) Positive (Negative)
--- NOTE | 2022-11-22 09:31 | EXP.UTC ---
Discharge Plan Disposition Patient Disposition: Home, Self-Care Condition: Good Prescriptions Prescriptions: New cephalexin 500 mg capsule 500 mg PO BID 10 Days Qty: 20 0RF No Action divalproex 500 mg tablet,delayed release (DR/EC) 500 mg PO HS Qty: 90 0RF divalproex 250 mg tablet,delayed release (DR/EC) 250 mg PO DAILY Qty: 90 0RF quetiapine 100 mg tablet See Rx Instructions .ROUTE .COMPLEX Qty: 150 1RF Rx Instructions: 5 tablets at night diclofenac sodium 1 % gel 2 g TOPICAL QID Qty: 100 0RF Rx Instructions: apply to single elbow, wrist or hand; for hand includes palm/fingers/back of hand lidocaine 5 % adhesive patch,medicated 1 patch TOPICAL DAILY Qty: 30 0RF Rx Instructions: leave on most painful area for up to 12 hrs meloxicam 15 mg tablet 15 mg PO DAILY PRN alprazolam 0.5 mg tablet 0.5 mg PO TID Qty: 90 1RF hydrocodone-acetaminophen 7.5-325 mg tablet 1 tab PO QID PRN (Reason: pain) Qty: 120 0RF fluticasone propionate 50 mcg/actuation spray,suspension See Rx Instructions .ROUTE .COMPLEX Qty: 16 2RF Dose Instruction: INSTILL 1 SPRAY IN EACH NOSTRIL EVERY DAY Rx Instructions: INSTILL 1 SPRAY IN EACH NOSTRIL EVERY DAY bisoprolol fumarate 5 mg tablet See Rx Instructions .ROUTE .COMPLEX Qty: 90 5RF Dose Instruction: TAKE 1 TABLET BY MOUTH EVERY DAY Rx Instructions: TAKE 1 TABLET BY MOUTH EVERY DAY ergocalciferol (vitamin D2) 1,250 mcg (50,000 unit) capsule See Rx Instructions .ROUTE .COMPLEX Qty: 14 3RF Dose Instruction: TAKE 1 CAPSULE BY MOUTH ONE TIME WEEKLY (ON THE SAME DAY EACH WEEK) Rx Instructions: TAKE 1 CAPSULE BY MOUTH ONE TIME WEEKLY (ON THE SAME DAY EACH WEEK) omeprazole 20 mg capsule,delayed release(DR/EC) See Rx Instructions .ROUTE .COMPLEX Qty: 90 5RF Dose Instruction: TAKE ONE CAPSULE BY MOUTH EVERY DAY Rx Instructions: TAKE ONE CAPSULE BY MOUTH EVERY DAY cholecalciferol (vitamin D3) 25 mcg (1,000 unit) tablet See Rx Instructions .ROUTE .COMPLEX Qty: 90 5RF Dose Instruction: TAKE ONE TABLET BY MOUTH EVERY DAY --TAKE WITH FOOD-- Rx Instructions: TAKE ONE TABLET BY MOUTH EVERY DAY --TAKE WITH FOOD-- Referrals Follow up/Referrals: Juan Pang MD [Primary Care Provider] - See instructions Activity Restrictions/Add. Instructions Additional Instructions/Restrictions: *Monitor Temp, Over the counter Motrin or Tylenol as directed/as needed Tylenol every 4 hours and Motrin every 6 hours (as long as your family doctor has told you that you can take it) for fever or pain. and straight to ER if unable to lower temp less than 101.0 after medication given *Warm salt water gargles may help to soothe the throat *Throat Lozenges? *Warm fluids like tea with honey may help to soothe the throat? *Sleep elevated *Humidifier/Vaporizer *If you did not take Penicillin shot or was unable to, start taking antibiotic immediately and make sure that you take it for the FULL length of time although you should start to feel better in 24-48 hours *change toothbrush and toothpaste 24-48 hours after starting to take antibiotics so you do not reinfect yourself Monitor Temp. Tylenol and/or Ibuprofen as needed. ER if fever is no less than 101 despite alternating Tylenol and Ibuprofen * Encourage fluids, water, Gatorade, powerade, pedialyte if /toddler/or child *Cold fluids, popsicles and ice cream may feel good on his throat Follow up IMMEDIATELY for new or worsening symptoms or no Noticeable improvement over the next 48-72 hours. 911 for difficulty breathing or swallowing Clinical Impressions Clinical Impression: Strep throat Instructions Patient Instructions: DI for Strep Throat, Strep Throat Discharge ED Provider: Scarlett Banuelos [facility] [place] HPI General Stated complaint: Sore throat Time Seen by Provider: 11/22/22 09:31 History
[2022-11-22 09:35] VITALS: BP 119/86; PULSE 86; RESP 20; TEMP 37.1; O2SAT 98; BMI 23.6
[2022-11-22 09:48] VITALS: BP 119/86; PULSE 86; RESP 20; TEMP 37.1; O2SAT 98
== END 2022-11-22 09:48 | disposition home or self-care (01) ==
PROVIDERS: Emergency Provider Nurse Practitioner; PCP Emergency Medicine
DX: J02.0 Streptococcal pharyngitis (principal)
CPT/HCPCS: 87880; 99212; 99213; G0463

== ENCOUNTER → 2023-01-04 15:45 | Outpatient (CLI) | payer OTHER, SELFPAY ==
[2023-01-04 20:01] LABS: Amphetamine/Metha Screen,Urine Negative ng/ml (<1000)
[2023-01-04 20:02] LABS: Barbiturates Screen,Urine Negative ng/ml (<200); Benzodiazepines Screen,Urine Positive ng/ml (<200)
[2023-01-04 20:03] LABS: Cannabinoid Screen,Urine Positive ng/ml (<50)
[2023-01-04 20:04] LABS: Cocaine Screen,Urine Negative ng/ml (<300); Methadone Screen,Urine Negative ng/ml (<300)
[2023-01-04 20:07] LABS: Opiate Screen,Urine Positive ng/ml (<300); Phencyclidine Screen,Urine Negative ng/ml (<25)
== END ==
PROVIDERS: PCP Emergency Medicine; Visit Provider Emergency Medicine
DX: Z79.899 Other long term (current) drug therapy (principal)
CPT/HCPCS: 80305

== ENCOUNTER → 2023-02-09 10:48 | Outpatient (CLI) | payer OTHER, SELFPAY ==
[2023-02-09 14:57] LABS: Hemoglobin A1C 5.1 % (4.0-6.0)
[2023-02-17 21:21] LABS: Free Valproic Acid (Depakote) 6.4
[2023-02-20 14:08] LABS: 7-Aminoclonazepam Negative (.); Alprazolam 15.7 ng/mL (.); Chlordiazepoxide Negative (.); Clonazepam Negative (.); Desalkylflurazepam Negative (.); Diazepam Negative (.); Flurazepam Negative (.); Lorazepam Negative (.); Midazolam Negative (.); Temazepam Negative (.)
[2023-02-21 01:07] LABS: 6-Acetylmorphine Negative (.); Codeine Negative (.); Dihydrocodeine 2.4 ng/mL (.); Hydrocodone 13.2 ng/mL (.); Morphine Negative (.); Opiate Confirmation Positive (.)
[2023-02-25 18:29] LABS: Amphetamines IA Negative; Barbituates IA Negative
[2023-02-25 18:30] LABS: Cocaine & Metabolites IA Negative; Phencyclidine IA Negative
[2023-02-25 18:31] LABS: Methadone IA Negative
[2023-03-03 12:10] LABS: Benzodiazepines IA ++POSITIVE++ ng/mL (Cutoff:20); Cannabidiol Negative (.); Cannabinoid Confirmation Positive (.); Carboxy-THC 68.5 ng/mL (.); Hydroxy-THC Negative (.); Opiates IA ++POSITIVE++ ng/mL (Cutoff:5); Oxycodone IA Negative ng/mL (Cutoff:5); Propoxyphene IA Negative ng/mL (Cutoff:50); THC (marijauna) metabolite IA ++POSITIVE++ ng/mL (Cutoff:5); Tetrahydrocannabinol 2.5 ng/mL (.)
== END ==
PROVIDERS: PCP Emergency Medicine; Visit Provider Nurse Practitioner Psychiatric/Mental Health
DX: Z79.899 Other long term (current) drug therapy (principal)
CPT/HCPCS: 36415; 80165; 80307; 83036

== ENCOUNTER → 2023-03-03 23:25 | Outpatient (CLI) | payer OTHER, SELFPAY ==
[2023-03-03 19:03] LABS: Barbiturates Screen,Urine Negative ng/ml (<200); Benzodiazepines Screen,Urine Positive ng/ml (<200)
[2023-03-03 19:04] LABS: Amphetamine/Metha Screen,Urine Negative ng/ml (<1000)
[2023-03-03 19:05] LABS: Cannabinoid Screen,Urine Positive ng/ml (<50); Cocaine Screen,Urine Negative ng/ml (<300)
[2023-03-03 19:06] LABS: Methadone Screen,Urine Negative ng/ml (<300)
[2023-03-03 19:07] LABS: Opiate Screen,Urine Positive ng/ml (<300); Phencyclidine Screen,Urine Negative ng/ml (<25)
== END ==
PROVIDERS: PCP Emergency Medicine; Visit Provider Emergency Medicine
DX: Z79.899 Other long term (current) drug therapy (principal)
CPT/HCPCS: 80305

== ENCOUNTER → 2023-05-01 23:00 | Outpatient (CLI) | payer OTHER, SELFPAY ==
[2023-05-01 18:48] LABS: Amphetamine/Metha Screen,Urine Negative ng/ml (<1000); Methadone Screen,Urine Negative ng/ml (<300)
[2023-05-01 18:49] LABS: Barbiturates Screen,Urine Negative ng/ml (<200)
[2023-05-01 18:50] LABS: Benzodiazepines Screen,Urine Positive ng/ml (<200)
[2023-05-01 18:52] LABS: Cocaine Screen,Urine Negative ng/ml (<300)
[2023-05-01 18:53] LABS: Opiate Screen,Urine Positive ng/ml (<300)
[2023-05-01 18:55] LABS: Phencyclidine Screen,Urine Negative ng/ml (<25)
[2023-05-01 19:17] LABS: Cannabinoid Screen,Urine Positive ng/ml (<50)
== END ==
PROVIDERS: PCP Emergency Medicine; Visit Provider Emergency Medicine
DX: Z79.899 Other long term (current) drug therapy (principal)
CPT/HCPCS: 80305

== ENCOUNTER → 2023-06-27 11:25 | Outpatient (CLI) | payer OTHER, SELFPAY ==
[2023-06-27 19:59] LABS: Basophils % 0.6 % (0.1-2.0); Eosinophils # 0.2 K/mm3 (0.0-0.4); Hematocrit 47.6 % (37.0-47.0); Lymphocytes # 1.7 K/mm3 (0.7-4.5); Lymphocytes % 24.8 % (10-50); Mean Corpuscular HGB Conc 31.5 g/dL (31.8-35.4); Mean Corpuscular Hemoglobin 31.8 pg (27.0-31.2); Mean Platelet Volume 8.4 fl (7.4-10.4); Monocytes # 0.5 K/mm3 (0.1-1.0); Monocytes % 7.5 % (1.7-9.3); Neutrophils # 4.3 K/mm3 (1.8-7.8); Neutrophils % 64.1 % (37.0-80.0); Platelet Count 334 K/mm3 (142-424); Red Blood Count 4.71 M/mm3 (4.20-5.40); White Blood Count 6.6 K/mm3 (4.8-10.8)
[2023-06-27 20:08] LABS: Alanine Aminotransferase 20 U/L (12-78); Albumin/Globulin Ratio 1.3 (1.1-1.8); Alkaline Phosphatase 92 U/L (38-126); Anion Gap 14.9 mEq/L (5-15); Aspartate Amino Transferase 33 U/L (14-36); Bilirubin,Total 0.2 mg/dl (0.2-1.3); Blood Urea Nitrogen 13 mg/dl (7-17); Calcium 8.7 mg/dl (8.4-10.2); Carbon Dioxide 19 mmol/L (22.0-30.0); Chloride 104 mmol/L (98-107); Chol/HDL Ratio 3.3 (1-3.5); Cholesterol 193 mg/dl (140-200); Estimated Glomerular Filt Rate 114 ml/min (>60); GFR (African American) 138 ML/MIN (>60); Glucose 113 mg/dl (74-100); HDL Cholesterol 59 mg/dl (40-60); Potassium 4.9 mmoL/L (3.5-5.1); Sodium 133 mmol/L (136-145); Triglycerides 101 mg/dl (30-150); VLDL Cholesterol 20 mg/dL (0-40)
[2023-06-27 20:19] LABS: Direct LDL Cholesterol 100.41 mg/dL (100-129)
[2023-06-27 20:25] LABS: T4 (Thyroxine) 3.9 ug/dl (5.53-11.0)
[2023-06-27 20:27] LABS: 25-OH Vitamin D, Total 22.2 ng/mL (30-100)
[2023-06-27 20:39] LABS: Thyroid Stimulating Hormone 0.86 uIU/mL (0.465-4.68)
[2023-06-27 23:19] LABS: Amphetamine/Metha Screen,Urine Negative ng/ml (<1000)
[2023-06-27 23:20] LABS: Barbiturates Screen,Urine Negative ng/ml (<200)
[2023-06-27 23:21] LABS: Benzodiazepines Screen,Urine Positive ng/ml (<200); Cannabinoid Screen,Urine Positive ng/ml (<50)
[2023-06-27 23:22] LABS: Cocaine Screen,Urine Negative ng/ml (<300)
[2023-06-27 23:23] LABS: Methadone Screen,Urine Negative ng/ml (<300); Opiate Screen,Urine Positive ng/ml (<300)
[2023-06-27 23:24] LABS: Phencyclidine Screen,Urine Negative ng/ml (<25)
== END ==
PROVIDERS: PCP Emergency Medicine; Visit Provider Emergency Medicine
DX: I10 Essential (primary) hypertension (principal); E55.9 Vitamin D deficiency, unspecified; Z79.899 Other long term (current) drug therapy
CPT/HCPCS: 80053; 80061; 80305; 82306; 84436; 84443; 85025

== ENCOUNTER → 2023-08-23 08:55 | Outpatient (CLI) | payer OTHER, SELFPAY ==
[2023-08-23 23:41] LABS: Amphetamine/Metha Screen,Urine Negative ng/ml (<1000)
[2023-08-23 23:42] LABS: Barbiturates Screen,Urine Negative ng/ml (<200)
[2023-08-23 23:43] LABS: Benzodiazepines Screen,Urine Positive ng/ml (<200)
[2023-08-23 23:44] LABS: Cocaine Screen,Urine Negative ng/ml (<300)
[2023-08-23 23:45] LABS: Methadone Screen,Urine Negative ng/ml (<300); Opiate Screen,Urine Positive ng/ml (<300)
[2023-08-24 00:01] LABS: Cannabinoid Screen,Urine Positive ng/ml (<50)
[2023-08-24 00:02] LABS: Phencyclidine Screen,Urine Negative ng/ml (<25)
== END ==
PROVIDERS: PCP Emergency Medicine; Visit Provider Emergency Medicine
DX: Z79.899 Other long term (current) drug therapy (principal)
CPT/HCPCS: 80305

== ENCOUNTER → 2023-09-06 08:13 | Outpatient (CLI) | payer OTHER, SELFPAY ==
[2023-09-06 18:47] LABS: Coronavirus 19, PCR Not Detected (NotDetected); Influenza A, PCR Not Detected (NotDetected); Influenza B, PCR Not Detected (NotDetected)
== END ==
PROVIDERS: PCP Internal Medicine; Visit Provider Internal Medicine
DX: R06.02 Shortness of breath (principal)
CPT/HCPCS: 87636

== ENCOUNTER 2023-10-17 18:27 | Outpatient (CLI) | payer OTHER, SELFPAY ==
[2023-10-17 20:54] LABS: Barbiturates Screen,Urine Negative ng/ml (<200); Benzodiazepines Screen,Urine Negative ng/ml (<200); Cannabinoid Screen,Urine Negative ng/ml (<50); Cocaine Screen,Urine Negative ng/ml (<300); Methadone Screen,Urine Negative ng/ml (<300); Opiate Screen,Urine Positive ng/ml (<300); Phencyclidine Screen,Urine Negative ng/ml (<25)
[2023-10-18 15:15] LABS: Amphetamine/Metha Screen,Urine Negative ng/ml (<1000)
== END 2023-10-17 23:59 ==
LOC: LAB.DROPOF 18:27
PROVIDERS: PCP Internal Medicine; Visit Provider Internal Medicine
DX: Z79.899 Other long term (current) drug therapy (principal)
CPT/HCPCS: 80307

== ENCOUNTER 2023-11-06 17:07 | Emergency (ER) | payer OTHER, SELFPAY ==
--- NOTE | 2023-11-06 17:10 | ECG_ITS ---
APPROVED REPORT Exam: Resting ECG HR:72 bpm ECG Measurements Heart Rate 72 AXES MD 132 P 75 QRSd 84 QRS 79 QT 372 T 91 QTc 397 Conclusion SINUS RHYTHM WITH SINUS ARRHYTHMIA NONSPECIFIC ST & T-WAVE ABNORMALITY BORDERLINE ECG UNCONFIRMED REPORT Electronically signed by : Deuce Figueroa MD 11/07/2023 16:40:17
[2023-11-06 17:20] VITALS: BP 122/78; PULSE 85; RESP 15; TEMP 36.7; O2SAT 98; BMI 19.5
--- NOTE | 2023-11-06 17:33 | XR_ITS ---
PROCEDURE INFORMATION: Exam: XR Chest Exam date and time: 11/06/2023 5:36 PM Age: 38 years old Clinical indication: Dyspnea TECHNIQUE: Imaging protocol: Radiologic exam of the chest. Views: 1 view. COMPARISON: CR XR CHEST 2V 03/15/2022 3:08 PM FINDINGS: Lungs: Unremarkable. No consolidation. Pleural spaces: Unremarkable. No pleural effusion. No pneumothorax. Heart/Mediastinum: Unremarkable. No cardiomegaly. Bones/joints: Unremarkable. IMPRESSION: No acute findings.
--- NOTE | 2023-11-06 17:35 | [facility].EDCP ---
Discharge Plan Disposition Patient Disposition: Home, Self-Care Prescriptions Prescriptions: No Action hydrocodone-acetaminophen 7.5-325 mg tablet 1 tab PO QID PRN (Reason: pain) 30 Days Qty: 120 0RF lidocaine 5 % adhesive patch,medicated 1 patch TOPICAL DAILY Qty: 30 0RF Rx Instructions: leave on most painful area for up to 12 hrs omeprazole 20 mg capsule,delayed release(DR/EC) See Rx Instructions .ROUTE .COMPLEX Qty: 90 5RF Dose Instruction: TAKE ONE CAPSULE BY MOUTH EVERY DAY Rx Instructions: TAKE ONE CAPSULE BY MOUTH EVERY DAY fluticasone propionate 50 mcg/actuation spray,suspension See Rx Instructions .ROUTE .COMPLEX Qty: 16 2RF Dose Instruction: INSTILL 1 SPRAY IN EACH NOSTRIL EVERY DAY Rx Instructions: INSTILL 1 SPRAY IN EACH NOSTRIL EVERY DAY bisoprolol fumarate 5 mg tablet See Rx Instructions .ROUTE .COMPLEX Qty: 90 5RF Dose Instruction: TAKE 1 TABLET BY MOUTH EVERY DAY Rx Instructions: TAKE 1 TABLET BY MOUTH EVERY DAY divalproex 500 mg tablet,delayed release (DR/EC) 500 mg PO HS Qty: 90 0RF cholecalciferol (vitamin D3) 1,250 mcg (50,000 unit) capsule See Rx Instructions .ROUTE .COMPLEX Qty: 5 0RF Dose Instruction: TAKE ONE CAPSULE BY MOUTH ONCE A WEEK Rx Instructions: TAKE ONE CAPSULE BY MOUTH ONCE A WEEK cholecalciferol (vitamin D3) 25 mcg (1,000 unit) tablet See Rx Instructions .ROUTE .COMPLEX Qty: 90 5RF Dose Instruction: TAKE ONE TABLET BY MOUTH EVERY DAY --TAKE WITH FOOD-- Rx Instructions: TAKE ONE TABLET BY MOUTH EVERY DAY --TAKE WITH FOOD-- quetiapine 100 mg tablet See Rx Instructions .ROUTE .COMPLEX Qty: 150 1RF Dose Instruction: TAKE FIVE TABLETS BY MOUTH EVERY NIGHT Rx Instructions: TAKE FIVE TABLETS BY MOUTH EVERY NIGHT alprazolam 0.5 mg tablet 0.5 mg PO TID Qty: 90 0RF Referrals Follow up/Referrals: Luis Martinez DO [Primary Care Provider] - See instructions Ayan Christy MD [Staff Physician] - See instructions Clinical Impressions Clinical Impression: Atypical chest pain, Dyspnea, Fatigue, WPW (Wuhuu-Blzctuzuq-Pudfp syndrome) Discharge ED Provider: Mayi Red [facility] General Chief Complaint: Chest Pain Stated Complaint: Chest Pain Time Seen by Provider: 11/06/23 17:29 Mode of Arrival: Ambulatory Source of Information: Patient Limitations: No Limitations Description of Symptoms (Recalled from ER Triage Doc. by RN): Pt. arrived to the ED with complaints of chest tightness, shortness of breath, and some sharp pains on inhalation. She has a history of WPW Syndrome. History of Present Illness HPI narrative: Patient is a 38-year-old female present today with chest pain shortness of breath. States this has been ongoing for the last 48 hours was initiated by some anxiety and stress and she felt her heart rate elevated and has been symptomatic since that time. No significant exertion diaphoresis pleuritic component of this fevers chills or any other symptoms. No lower extremity swelling no hemoptysis prolonged immobilizations or other risk factors for DVT and PE. States she has 6 kids and she has been under a lot of stress lately and she believes that some of her fatigue and shortness of breath may be associate with that. No other symptoms such as change in weight diarrhea bowel movements skin hair etc. Does have poor fluid and p.o. intake at baseline but has not had any vomiting or diarrhea or any changes from that. Related Data Previous Rx's Medication Instructions Recorded fluticasone propionate 50 See Rx Instructions .Route 04/12/21 mcg/actuation nasal .COMPLEX #16 grams spray,suspension bisoprolol fumarate 5 mg tablet See Rx Instructions .Route 02/24/23 .COMPLEX #90 tabs lidocaine 5 % topical patch 1 patch topical DAILY #30 ea 05/01/23 divalproex 500 mg tablet,delayed 500 mg PO HS #90 tabs 06/27/23 release cholecalciferol (vitamin D3) 1,250 See Rx Instructions .Route 07/27/23 mcg (50,000 unit) capsule .COMPLEX #5 caps cholecalciferol (vitamin D3) 25 See Rx Instructions .Route 07/27/23 mcg (1,000 unit) tablet .COMPLEX #90 tabs omeprazole 20 mg capsule,delayed See Rx Instructions .Route 09/06/23 release .COMPLEX #90 caps quetiapine 100 mg tablet See Rx Instructions .Route 10/04/23 .COMPLEX #150 tabs hydrocodone 7.5 mg-acetaminophen 1 tab PO QID PRN pain 30 days #120 10/18/23 325 mg tablet tabs alprazolam 0.5 mg tablet 0.5 mg PO TID #90 tabs 10/24/23 Allergies Allergy/AdvReac Type Severity Reaction Status Date / Time meperidine [From DEMEROL] Allergy Mild Verified 11/06/23 17:20 steroids Allergy Severe elevated Uncoded 10/17/23 15:25 heart rate [facility] Disclaimer: The information contained in this section may have been updated after the patient was seen, as this information can be updated by other users. Medical History (Updated 11/06/23 @ 17:39 by Mayi Red MD) Bipolar II disorder Chest pain Vitamin D deficiency Qfaiu-Yyldggyix-Zwxiy (WPW) syndrome, type A Surgical History (Updated 11/06/23 @ 17:19 by Rosemary Eller RN) H/O cardiac radiofrequency ablation Social History Smoking Status: Current every day smoker tobacco type: cigarettes packs per day: 1 alcohol intake: never substance use type: denies use and marijuana current occupational status: unemployed Travel in the last 8 weeks: None household members: family housing: house number of children: 3 caffeine: Yes ROS Obtained: Yes All systems reviewed & no additional complaints except as documented Physical Exam General General appearance: alert Respiratory Respiratory exam: Present normal lung sounds bilaterally; Absent respiratory distress, wheezes or stridor Cardiovascular Cardiovascular exam: Present regular rate and normal rhythm Abdominal Exam Abdominal exam: Present soft; Absent distention or tenderness Neurological Exam Neurological exam: Present alert and oriented X3 HEART Score HEART Score HEART Score assessment performed?: Yes History (anamnesis): Slightly suspicious ECG: Non-specific disturbance Age: <45 years Risk factors: No known risk factors Troponin: </= normal limit HEART Score: 1 Critical Care Critical Care Time Critical Care Time: No Medical Decision Making Jaya Inquiry Pt receiving controlled substance: No Vital Signs Vital Signs: 11/06/23 17:20 Temperature 98.1 F Temperature Source Oral Pulse Rate [Right Brachial] 85 Respiratory Rate 15 Blood Pressure [Right Arm] 122/78 Blood Pressure Mean [Right Arm] 92 Blood Pressure Source [Right Arm] Automatic Cuff Blood Pressure Position [Right Arm] Sitting 02 Sat by Pulse Oximetry 98 Oxygen Delivery Method Room Air Lab Data Lab results reviewed: Yes I reviewed the patient's lab results. Labs: Lab Results 11/06/23 17:11: WBC 8.4, RBC 4.41, Hgb 15.5, Hct 44.0, MCV 99.9 H, MCH 35.1 H, MCHC 35.1, RDW 13.0, Plt Count 309, MPV 8.0, Neut % (Auto) 60.4, Lymph % (Auto) 29.4, [place] % (Auto) 6.3, Eos % (Auto) 3.4, Baso % (Auto) 0.5, Neut # (Auto) 5.1, Lymph # (Auto) 2.5, [place] # (Auto) 0.5, Eos # (Auto) 0.3, Baso # (Auto) 0.1, Sodium 136, Potassium 4.1, Chloride 104, Carbon Dioxide 26, Anion Gap 10.1, BUN 5 L, Creatinine 0.60, Estimated Creat Clear 102, Estimated GFR 113, Est GFR ( Amer) 137, Glucose 101 H, Calcium 8.8, Phosphorus 4.1, Magnesium 2.2, Total Bilirubin 0.5, AST 21, ALT 11 L, Alkaline Phosphatase 74, Troponin I < 0.01, NT-Pro-B Natriuret Pep 61.7, Total Protein 6.8, Albumin 3.8, Globulin 3.0, Albumin/Globulin Ratio 1.3, TSH 0.67 11/06/23 17:11 11/06/23 17:11 Response Orders (Tests/Meds): ED MEDICATIONS Discontinued Medications Generic Name Dose Route Start Last Admin Trade Name Freq PRN Reason Stop Dose Admin Lactated Ringer's 1,000 mls @ 999 mls/hr 11/06/23 17:45 11/06/23 17:45 Lactated Ringer's 1000 Ml Bag IV 11/06/23 18:45 999 mls/hr .Q1H1M MALICK Administration ORDERS Category Date Time Status CXR --portable [XR chest portable] Stat Exams 11/06/23 17:33 Completed BNP [Brain Natriuretic Peptide] Stat Lab 11/06/23 17:11 Completed CBC w/Auto Diff [Complete Blood Count Auto Diff] Stat Lab 11/06/23 17:11 Completed CMP [Comprehensive Metabolic Panel] Stat Lab 11/06/23 17:11 Completed Magnesium Stat Lab 11/06/23 17:11 Completed Phosphorous Stat Lab 11/06/23 17:11 Completed TSH [Thyroid Stimulating Hormone] Stat Lab 11/06/23 17:11 Completed Trop I [Troponin I] Stat Lab 11/06/23 17:11 Completed Troponin I Q3H Lab 11/06/23 20:45 Ordered Troponin I Q3H Lab 11/06/23 23:45 Ordered MDM Narrative Medical Decision Narrative: EKG performed on first interpreted shows a ventricular rate of 72 there is a short MO interval with a delta wave which is consistent with Jjayr-Zvehqmytm-Hgczb but this is a known diagnosis. No acute ischemic changes noted no significant arrhythmia or conduction abnormality noted other than this. QTc is 397. There is a normal axis. Patient is a 38-year-old female who presents today with chest pain and shortness of breath. She is PERC negative will not workup for pulmonary embolism further. Her heart rate is normal right now she states that she did feel some tachycardia as possible in the setting of Htyww-Vokofuuke-Eqfrh that she had an arrhythmia but cannot confirm this definitively. 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 Will workup her from a generic standpoint from fatigue chief complaint including TSH basic electrolytes BMP chest x-ray troponin etc. A single troponin will rule out any myocardial injury associated with this given the duration of her symptoms. She is very well-appearing I suspect she will be able to be discharged. Reassessment 6:47 PM patient remains asymptomatic chest x-ray performed which I personally interpreted which shows no acute cardiopulmonary emergency this is consistent with radiology read as well. Labs are unremarkable specifically troponin is undetectably low. TSH is not abnormal electrolytes all okay. Overall very well-appearing workup inpatient. She will follow-up outpatient with cardiology for Holter monitor as discussed.
[2023-11-06] MEDS: LACTATED RINGERS 1000ML 1,000 ML 999 ML IV (17:45)
[2023-11-06 17:55] LABS: Basophils # 0.1 K/mm3 (0-0.2); Basophils % 0.5 % (0.1-2.0); Eosinophils # 0.3 K/mm3 (0.0-0.4); Eosinophils % 3.4 % (0.1-12.0); Hemoglobin 15.5 g/dL (12.2-16.2); Lymphocytes # 2.5 K/mm3 (0.7-4.5); Lymphocytes % 29.4 % (10-50); Mean Corpuscular HGB Conc 35.1 g/dL (31.8-35.4); Mean Corpuscular Hemoglobin 35.1 pg (27.0-31.2); Mean Corpuscular Volume 99.9 fl (81-99); Monocytes # 0.5 K/mm3 (0.1-1.0); Monocytes % 6.3 % (1.7-9.3); Neutrophils # 5.1 K/mm3 (1.8-7.8); Neutrophils % 60.4 % (37.0-80.0); Platelet Count 309 K/mm3 (142-424); Red Blood Count 4.41 M/mm3 (4.20-5.40); White Blood Count 8.4 K/mm3 (4.8-10.8)
[2023-11-06 18:00] VITALS: BP 102/65; PULSE 71; RESP 15; O2SAT 98
[2023-11-06 18:00] LABS: Alanine Aminotransferase 11 U/L (12-78); Albumin Level 3.8 g/dl (3.5-5.0); Albumin/Globulin Ratio 1.3 (1.1-1.8); Alkaline Phosphatase 74 U/L (38-126); Anion Gap 10.1 mEq/L (5-15); Aspartate Amino Transferase 21 U/L (14-36); Bilirubin,Total 0.5 mg/dl (0.2-1.3); Blood Urea Nitrogen 5 mg/dl (7-17); Calcium 8.8 mg/dl (8.4-10.2); Carbon Dioxide 26 mmol/L (22.0-30.0); Chloride 104 mmol/L (98-107); Creatinine Clearance Estimated 102 mL/min (50-200); Estimated Glomerular Filt Rate 113 ml/min (>60); GFR (African American) 137 ML/MIN (>60); Glucose 101 mg/dl (74-100); Magnesium 2.2 mg/dl (1.6-2.3); Phosphorous 4.1 mg/dl (2.5-4.5); Potassium 4.1 mmoL/L (3.5-5.1); Sodium 136 mmol/L (136-145); Total Protein,Serum 6.8 g/dl (6.3-8.2)
[2023-11-06 18:12] LABS: NT Pro Brain Natriuretic Pep. 61.7 pg/mL (0-125)
[2023-11-06 18:18] LABS: Troponin I < 0.01 ng/ml (0.00-0.034)
[2023-11-06 18:30] VITALS: BP 105/66; PULSE 65; RESP 14; O2SAT 100
[2023-11-06 18:30] LABS: Thyroid Stimulating Hormone 0.67 uIU/mL (0.465-4.68)
[2023-11-06 18:52] VITALS: BP 105/66; PULSE 65; RESP 14; TEMP 36.7
== END 2023-11-06 18:53 | disposition home or self-care (01) ==
PROVIDERS: Emergency Provider Student in an Organized Health Care Education/Training Program; PCP Internal Medicine
DX: R07.89 Other chest pain (principal); R53.83 Other fatigue; R06.00 Dyspnea, unspecified; I45.6 Pre-excitation syndrome; R06.02 Shortness of breath; F17.210 Nicotine dependence, cigarettes, uncomplicated
CPT/HCPCS: 71045; 80053; 83735; 83880; 84100; 84443; 84484; 85025; 93005; 96360; 99285

== ENCOUNTER 2023-11-12 16:42 | Emergency (ER) | payer OTHER, SELFPAY ==
[2023-11-12 16:50] VITALS: BP 124/68; PULSE 93; RESP 18; TEMP 36.6; O2SAT 100; BMI 17.0
--- NOTE | 2023-11-12 17:07 | ED_ITS ---
Discharge Plan Disposition Patient Disposition: Home, Self-Care Condition: Good Prescriptions Prescriptions: No Action hydrocodone-acetaminophen 7.5-325 mg tablet 1 tab PO QID PRN (Reason: pain) 30 Days Qty: 120 0RF lidocaine 5 % adhesive patch,medicated 1 patch TOPICAL DAILY Qty: 30 0RF Rx Instructions: leave on most painful area for up to 12 hrs omeprazole 20 mg capsule,delayed release(DR/EC) See Rx Instructions .ROUTE .COMPLEX Qty: 90 5RF Dose Instruction: TAKE ONE CAPSULE BY MOUTH EVERY DAY Rx Instructions: TAKE ONE CAPSULE BY MOUTH EVERY DAY fluticasone propionate 50 mcg/actuation spray,suspension See Rx Instructions .ROUTE .COMPLEX Qty: 16 2RF Dose Instruction: INSTILL 1 SPRAY IN EACH NOSTRIL EVERY DAY Rx Instructions: INSTILL 1 SPRAY IN EACH NOSTRIL EVERY DAY bisoprolol fumarate 5 mg tablet See Rx Instructions .ROUTE .COMPLEX Qty: 90 5RF Dose Instruction: TAKE 1 TABLET BY MOUTH EVERY DAY Rx Instructions: TAKE 1 TABLET BY MOUTH EVERY DAY divalproex 500 mg tablet,delayed release (DR/EC) 500 mg PO HS Qty: 90 0RF cholecalciferol (vitamin D3) 1,250 mcg (50,000 unit) capsule See Rx Instructions .ROUTE .COMPLEX Qty: 5 0RF Dose Instruction: TAKE ONE CAPSULE BY MOUTH ONCE A WEEK Rx Instructions: TAKE ONE CAPSULE BY MOUTH ONCE A WEEK cholecalciferol (vitamin D3) 25 mcg (1,000 unit) tablet See Rx Instructions .ROUTE .COMPLEX Qty: 90 5RF Dose Instruction: TAKE ONE TABLET BY MOUTH EVERY DAY --TAKE WITH FOOD-- Rx Instructions: TAKE ONE TABLET BY MOUTH EVERY DAY --TAKE WITH FOOD-- quetiapine 100 mg tablet See Rx Instructions .ROUTE .COMPLEX Qty: 150 1RF Dose Instruction: TAKE FIVE TABLETS BY MOUTH EVERY NIGHT Rx Instructions: TAKE FIVE TABLETS BY MOUTH EVERY NIGHT alprazolam 0.5 mg tablet 0.5 mg PO TID Qty: 90 0RF Referrals Follow up/Referrals: Luis Martinez DO [Primary Care Provider] - See instructions Activity Restrictions/Add. Instructions Additional Instructions/Restrictions: *Monitor Temp, Over the counter Motrin or Tylenol as directed/as needed Tylenol every 4 hours and Motrin every 6 hours (as long as your family doctor has told you that you can take it) for fever or pain. and straight to ER if unable to lower temp less than 101.0 after medication given *Warm salt water gargles may help to soothe the throat *Throat Lozenges? *Warm fluids like tea with honey may help to soothe the throat? *Sleep elevated *Humidifier/Vaporizer Your throat swab was sent for culture. Those results are typically sent to your primary care. Be sure to follow up in 2-3 days with your family doctor/primary care physician if no improvement so they can review those result and treat if necessary. If you don?t have a primary care doctor, I recommend you get one but in the mean time, you will have to return to a walk in clinic Follow up IMMEDIATELY for new or worsening symptoms or no Noticeable improvement over the next 48-72 hours. 911 for difficulty breathing or swallowing Clinical Impressions Clinical Impression: Sore throat (viral) Instructions Patient Instructions: Sore Throat, DI for Ear Pain-Adult Discharge ED Provider: Scarlett Banuelos [facility] General Stated complaint: Sore throat, ear ache, headache Mode of Arrival: Ambulatory Source of Information: Patient Limitations: No Limitations Time Seen by Provider: 11/12/23 17:07 Description of Symptoms (Recalled from Triage Doc. by RN): PATIENT C/O SORE THROAT, EAR ACHE AND HEADACHE HEENT Symptoms (Recalled from RN notes): Yes Resp Symptoms (Recalled from RN notes): No Skin Symptoms (Recalled from RN notes): No MS Symptoms (Recalled from RN notes): No Functional Status (Recalled from RN notes): WNL History of Present Illness Provider Complaint: Patient states that she has been caring for several family members that have had strep throat States that for the last few days she has been having headache, sore throat and pain in her ears so today she was bringing her son in so she came in to get checked too Related Data Previous Rx's Medication Instructions Recorded fluticasone propionate 50 See Rx Instructions .Route 04/12/21 mcg/actuation nasal .COMPLEX #16 grams spray,suspension bisoprolol fumarate 5 mg tablet See Rx Instructions .Route 02/24/23 .COMPLEX #90 tabs lidocaine 5 % topical patch 1 patch topical DAILY #30 ea 05/01/23 divalproex 500 mg tablet,delayed 500 mg PO HS #90 tabs 06/27/23 release cholecalciferol (vitamin D3) 1,250 See Rx Instructions .Route 07/27/23 mcg (50,000 unit) capsule .COMPLEX #5 caps cholecalciferol (vitamin D3) 25 See Rx Instructions .Route 07/27/23 mcg (1,000 unit) tablet .COMPLEX #90 tabs omeprazole 20 mg capsule,delayed See Rx Instructions .Route 09/06/23 release .COMPLEX #90 caps quetiapine 100 mg tablet See Rx Instructions .Route 10/04/23 .COMPLEX #150 tabs hydrocodone 7.5 mg-acetaminophen 1 tab PO QID PRN pain 30 days #120 10/18/23 325 mg tablet tabs alprazolam 0.5 mg tablet 0.5 mg PO TID #90 tabs 10/24/23 Allergies Allergy/AdvReac Type Severity Reaction Status Date / Time meperidine [From DEMEROL] Allergy Mild Verified 11/06/23 17:20 steroids Allergy Severe elevated Uncoded 10/17/23 15:25 heart rate Worker's Comp Is this a Worker's Comp case?: No [facility] Disclaimer: The information contained in this section may have been updated after the patient was seen, as this information can be updated by other users. Medical History (Updated 11/12/23 @ 17:19 by Scarlett Banuelos APRN) Bipolar II disorder Chest pain Vitamin D deficiency Nyzbp-Xetriwyhk-Bwbvr (WPW) syndrome, type A Surgical History (Updated 11/06/23 @ 17:19 by Rosemary Eller RN) H/O cardiac radiofrequency ablation Social History Smoking Status: Current every day smoker tobacco type: cigarettes packs per day: 1 alcohol intake: never substance use type: denies use and marijuana current occupational status: unemployed Travel in the last 8 weeks: None household members: family housing: house number of children: 3 caffeine: Yes ROS Obtained: Yes All systems reviewed & no additional complaints except as documented and Yes Systems reviewed as appropriate & no additional complaints except as documented Constitutional Constitutional: Reports system reviewed and no additional complaints, except as documented, Reports as per HPI and Reports headache(s) ENT Ears, Nose, Mouth, and Throat: Reports system reviewed and no additional complaints, except as documented, Reports as per HPI, Reports otalgia, Reports headache(s) and Reports sore throat Cardiovascular Cardiovascular: Reports system reviewed and no additional complaints, except as documented and Reports as per HPI Respiratory Respiratory: Reports system reviewed and no additional complaints, except as documented and Reports as per HPI Gastrointestinal Gastrointestingal: Reports system reviewed and no additional complaints, except as documented and as per HPI Neurologic Neurologic: Reports headache(s) Physical Exam General General appearance: alert and in no apparent distress ENT ENT exam: Present mucous membranes moist Expanded ENT Exam Nose exam: Absent sinus tenderness Throat exam: Present tonsillar erythema Respiratory Respiratory exam: Present normal lung sounds bilaterally; Absent respiratory distress or wheezes Cardiovascular Cardiovascular exam: Present regular rate, normal rhythm and normal heart sounds Neurological Exam Neurological exam: Present alert, oriented X3 and normal gait Medical Decision Making Jaya Inquiry Pt receiving controlled substance: No Jaya was queried for this patient: No Vital Signs: 11/12/23 16:50 Temperature 97.9 F Temperature Source Oral Pulse Rate [Left Brachial] 93 H Respiratory Rate 18 Blood Pressure [Left Arm] 124/68 Blood Pressure Mean [Left Arm] 86 Blood Pressure Source [Left Arm] Automatic Cuff Blood Pressure Position [Left Arm] Sitting 02 Sat by Pulse Oximetry 100 Oxygen Delivery Method Room Air Lab Data Lab results reviewed: Yes I reviewed the patient's lab results.
[2023-11-12 17:12] LABS: UTC Strep Screen (Rapid) Negative (Negative)
[2023-11-12 17:14] VITALS: BP 124/68; PULSE 93; RESP 18; TEMP 36.6; O2SAT 100
== END 2023-11-12 17:29 | disposition home or self-care (01) ==
PROVIDERS: Emergency Provider Nurse Practitioner; PCP Internal Medicine
DX: J02.9 Acute pharyngitis, unspecified (principal); R51.9 Headache, unspecified; H92.03 Otalgia, bilateral; B34.9 Viral infection, unspecified; F17.210 Nicotine dependence, cigarettes, uncomplicated; Z20.818 Contact with and (suspected) exposure to other bacterial communicable diseases
CPT/HCPCS: 87880; 99212; 99213; 99214; G0463

== ENCOUNTER 2023-11-23 15:23 | Outpatient (CLI) | payer OTHER, SELFPAY | END 2023-11-23 23:59 | LOC: RT 15:23 | PROVIDERS: PCP Internal Medicine; Visit Provider Physician Assistant | DX: I45.6 Pre-excitation syndrome (principal); R00.2 Palpitations; R06.00 Dyspnea, unspecified; R07.9 Chest pain, unspecified; R94.31 Abnormal electrocardiogram [ECG] [EKG] | CPT/HCPCS: 93270 ==

== ENCOUNTER 2023-12-12 14:30 | Outpatient (CLI) | payer OTHER, SELFPAY ==
--- NOTE | 2023-12-12 14:31 | CA_ITS ---
APPROVED REPORT EXAM: Comprehensive 2D, Doppler, and color-flow Echocardiogram Transportation Director: MOISES Quinteros, RVS Ht: 5 ft 4 in Wt: 104lbs BSA: 1.48 BP: 98/69 mmHg Indications: WPW, Abn EKG, CP, Hx-ablation, Smoker, Palpitations, ADKINS, Fatigue 2D Dimensions IVSd 0.63 cm LVEF (Visual) 49.50 % PWd 0.73 cm LA Volume 29.40 mL LVDd 3.90 cm LA Volume Index 19.30 mL/m2 (M/F) 16-34 LVDs 2.94 cm Left Atrium 1.74 cm M-Mode Dimensions LA Diam 1.98 cm (1.9-4.0) EPSs 0.41 cm TAPSE 1.75 (<1.7) LV Diastology E Decel Time 207 (160-240 msec) E/A Ratio 2.12 MED A' 7.00 cm/s LAT A' 7.70 cm/s Aortic Valve AO Peak GR. 3.80 mmHg Mitral Valve MV A Velocity 42.0 (40-130 cm/s) E/A Ratio 2.12 Pulmonary Valve PV Peak Velocity 91.0 (50-150 cm/s) Tricuspid Valve TR P. Velocity 180.00 cm/s RAP Estimate 10.00 mmHg RVSP 22.90 mmHg Left Ventricle The left ventricle is normal size. The left ventricular systolic function is normal. The left ventricular ejection fraction is within the normal range. There is normal left ventricular wall thickness. There is normal LV segmental wall motion. The left ventricular diastolic function is normal. LVEF is 55%. Right Ventricle The right ventricle is normal size. The right ventricular systolic function is normal. Atria The left atrium size is normal. The right atrium size is normal. There is no Doppler evidence of interatrial shunt. Aortic Valve The aortic valve is normal in structure. There is no aortic valvular stenosis. No aortic regurgitation is present. Mitral Valve The mitral valve is normal in structure. No evidence of mitral valve stenosis. There is no mitral valve regurgitation noted. Tricuspid Valve The tricuspid valve leaflets are thin and pliable. Trace tricuspid regurgitation. There is insufficient TR jet to estimate RVSP. Pulmonic Valve The pulmonary valve is normal in structure. Mild pulmonic regurgitation. Great Vessels The aortic root is normal in size. The ascending aorta is not well-visualized. IVC is normal in size and collapses >50% with inspiration. Pericardium There is no pericardial effusion. Other Information Study Quality: Adequate Conclusion Normal biventricular systolic function. Mild PI. Electronically signed by : Monica Stallworth MD 12/15/2023 21:03:50
== END 2023-12-12 23:59 ==
LOC: RT 14:31
PROVIDERS: PCP Internal Medicine; Visit Provider Physician Assistant
DX: I45.6 Pre-excitation syndrome (principal); R00.2 Palpitations; R06.00 Dyspnea, unspecified; R07.9 Chest pain, unspecified; R94.31 Abnormal electrocardiogram [ECG] [EKG]
CPT/HCPCS: 93306

== ENCOUNTER 2024-01-11 18:21 | Emergency (ER) | payer OTHER, SELFPAY ==
[2024-01-11 18:22] VITALS: BP 119/84; RESP 18; TEMP 37; O2SAT 99; BMI 18.0
--- NOTE | 2024-01-11 18:42 | XR_ITS ---
PROCEDURE INFORMATION: Exam: XR Chest Exam date and time: 01/11/2024 6:49 PM Age: 38 years old Clinical indication: Other: Dizziness TECHNIQUE: Imaging protocol: Radiologic exam of the chest. Views: 1 view. COMPARISON: No relevant prior studies available. FINDINGS: Lungs: Unremarkable. No consolidation. Pleural spaces: Unremarkable. No pleural effusion. No pneumothorax. Heart/Mediastinum: Unremarkable. No cardiomegaly. Bones/joints: Unremarkable. IMPRESSION: No acute findings.
--- NOTE | 2024-01-11 19:01 | ED_ITS ---
Discharge Plan Disposition Patient Disposition: Home, Self-Care Chief Complaint: Headache Prescriptions Prescriptions: No Action lidocaine 5 % adhesive patch,medicated 1 patch TOPICAL DAILY Qty: 30 0RF Rx Instructions: leave on most painful area for up to 12 hrs omeprazole 20 mg capsule,delayed release(DR/EC) See Rx Instructions .ROUTE .COMPLEX Qty: 90 5RF Dose Instruction: TAKE ONE CAPSULE BY MOUTH EVERY DAY Rx Instructions: TAKE ONE CAPSULE BY MOUTH EVERY DAY bisoprolol fumarate 5 mg tablet 2.5 mg PO DAILY Qty: 90 5RF divalproex 500 mg tablet,delayed release (DR/EC) 500 mg PO HS Qty: 90 0RF cholecalciferol (vitamin D3) 1,250 mcg (50,000 unit) capsule See Rx Instructions .ROUTE .COMPLEX Qty: 5 0RF Dose Instruction: TAKE ONE CAPSULE BY MOUTH ONCE A WEEK Rx Instructions: TAKE ONE CAPSULE BY MOUTH ONCE A WEEK cholecalciferol (vitamin D3) 25 mcg (1,000 unit) tablet See Rx Instructions .ROUTE .COMPLEX Qty: 90 5RF Dose Instruction: TAKE ONE TABLET BY MOUTH EVERY DAY --TAKE WITH FOOD-- Rx Instructions: TAKE ONE TABLET BY MOUTH EVERY DAY --TAKE WITH FOOD-- quetiapine 100 mg tablet See Rx Instructions .ROUTE .COMPLEX Qty: 150 1RF Dose Instruction: TAKE FIVE TABLETS BY MOUTH EVERY NIGHT Rx Instructions: TAKE FIVE TABLETS BY MOUTH EVERY NIGHT albuterol sulfate [Ventolin HFA] 90 mcg/actuation HFA aerosol inhaler See Rx Instructions .ROUTE .COMPLEX Qty: 18 2RF Dose Instruction: INHALE TWO PUFFS BY MOUTH EVERY 8 HOURS NEEDED SHORTNESS OF BREATH OR wheezing Rx Instructions: INHALE TWO PUFFS BY MOUTH EVERY 8 HOURS NEEDED SHORTNESS OF BREATH OR wheezing alprazolam 0.5 mg tablet 0.5 mg PO TID Qty: 90 0RF hydrocodone-acetaminophen 5-325 mg tablet 1 tab PO Q4-6H PRN (Reason: pain) 30 Days Qty: 120 0RF Referrals Follow up/Referrals: Luis Martinez DO [Primary Care Provider] - See instructions Activity Restrictions/Add. Instructions Additional Instructions/Restrictions: Call your family doctor to establish care for this visit to the emergency department and schedule follow-up within 48 hours to ensure improvement. If you have any worsening of your condition or any other concerning signs or symptoms, return to the emergency department or your primary care doctor for further evaluation. Clinical Impressions Clinical Impression: Migraine Qualifiers: Migraine type: unspecified Status migrainosus presence: with status migrainosus Intractability: intractable Qualified Code(s): G43.911 - Migraine, unspecified, intractable, with status migrainosus Discharge ED Provider: Cooper Tomas General Adult HPI General Chief complaint: Headache Stated complaint: CHANEY Time Seen by Provider: 01/11/24 18:25 Mode of Arrival: Ambulatory Source of Information: Patient Limitations: No Limitations Description of Symptoms (Recalled from ER Triage Doc. by RN): c/o CHANEY for the last week and half, states for a few months she has been dizzy especially when standing to where she goes black when she stands, her CHANEY is disabling to where she cant do anything but sleep, denies any other symptoms with CHANEY. Marina follows pt History of Present Illness HPI narrative: 38-year-old female with history of Vhouh-Whpvllavs-Gojsg status post ablation presenting with headache. Patient has strong family history of aneurysms, she is concerned. She does not usually get headaches or migraines. Has had this headache for about 2 weeks. Getting worse. It is intense, photophobia associated. No other associated symptoms. Not made better or worse by anything in particular, [id number] NSAIDs have not helped. Please note that above description of symptoms, in this electronic medical record under categorization of recalled from ER triage doctor by RN are reflective of an initial nursing assessment, however, is not reflective of my full history and physical exam that was personally taken and clarified. Consequentially, this preceding description of symptoms, which may include the patient's categorized chief complaint in the EMR, do not reflect my personal clinical impression, and the ultimate description of history of present illness and patient stated complaints should be deferred to this section of the note. Unless stated otherwise or congruent with this section of the note, additional signs, symptoms, or incongruence should be interpreted as inaccurate with my clinical impression. Related Data Previous Rx's Medication Instructions Recorded lidocaine 5 % topical patch 1 patch topical DAILY #30 ea 05/01/23 divalproex 500 mg tablet,delayed 500 mg PO HS #90 tabs 06/27/23 release cholecalciferol (vitamin D3) 1,250 See Rx Instructions .Route 07/27/23 mcg (50,000 unit) capsule .COMPLEX #5 caps cholecalciferol (vitamin D3) 25 See Rx Instructions .Route 07/27/23 mcg (1,000 unit) tablet .COMPLEX #90 tabs omeprazole 20 mg capsule,delayed See Rx Instructions .Route 09/06/23 release .COMPLEX #90 caps bisoprolol fumarate 5 mg tablet 2.5 mg (1/2 x 5 mg) PO DAILY #90 11/23/23 tabs quetiapine 100 mg tablet See Rx Instructions .Route 12/04/23 .COMPLEX #150 tabs albuterol sulfate 90 mcg/actuation See Rx Instructions .Route 12/06/23 aerosol inhaler (Ventolin HFA) .COMPLEX #18 grams alprazolam 0.5 mg tablet 0.5 mg PO TID #90 tabs 12/19/23 hydrocodone 5 mg-acetaminophen 325 1 tab PO Q4-6H PRN pain 30 days 12/20/23 mg tablet #120 tabs Allergies Allergy/AdvReac Type Severity Reaction Status Date / Time meperidine [From DEMEROL] Allergy Mild Verified 12/25/23 15:31 steroids Allergy Severe elevated Uncoded 12/25/23 15:31 heart rate [facility] Disclaimer: The information contained in this section may have been updated after the patient was seen, as this information can be updated by other users. Medical History Abnormal electrocardiogram [ECG] [EKG] Bipolar II disorder Tkwss-Hyaigsrsv-Fbgfe (WPW) syndrome, type A Vitamin D deficiency Patient is taking calcium supplementation. Will check a vitamin D at her next visit. Chest pain Surgical History H/O cardiac radiofrequency ablation Social History Smoking Status: Current every day smoker tobacco type: cigarettes packs per day: 1 alcohol intake: never substance use type: denies use and marijuana current occupational status: unemployed Travel in the last 8 weeks: None household members: family housing: house number of children: 3 caffeine: Yes ROS Obtained: Yes All systems reviewed & no additional complaints except as documented Physical Exam General General appearance: alert and in no apparent distress Head Head exam: atraumatic and normocephalic Eye Eye exam: Present normal appearance, PERRL and EOMI ENT ENT exam: Present mucous membranes moist Neck Neck exam: Present normal inspection, full ROM and trachea midline Respiratory Respiratory exam: Absent respiratory distress, wheezes, stridor, accessory muscle use or prolonged expiratory phase Cardiovascular Cardiovascular exam: Present normal rhythm Abdominal Exam Abdominal exam: Present soft; Absent distention, tenderness, guarding, rebound or rigidity Extremities Exam Extremities exam: Absent edema Neurological Exam Neurological exam: Present alert, oriented X3, CN II-XII intact and normal gait; Absent motor sensory deficit Skin Skin exam: Present warm and dry; Absent diaphoresis or erythema Medical Decision Making Medical Records Medical records reviewed: Yes I reviewed the patient's medical records. Jaya Inquiry Pt receiving controlled substance: No Jaya was queried for this patient: No Vital Signs: 01/11/24 18:22 Temperature 98.6 F Temperature Source Oral Respiratory Rate 18 Blood Pressure [Right Arm] 119/84 Blood Pressure Mean [Right Arm] 95 Blood Pressure Source [Right Arm] Automatic Cuff Blood Pressure Position [Right Arm] Sitting 02 Sat by Pulse Oximetry 99 Oxygen Delivery Method Room Air Lab Data Lab Results 01/11/24 17:45: WBC 8.0, RBC 4.62, Hgb 14.9, Hct 47.2 H, MCV 102.1 H, MCH 32.3 H , MCHC 31.6 L, RDW 13.0, Plt Count 426 H, MPV 7.6, Neut % (Auto) 66.4, Lymph % (Auto) 26.7, Garvin % (Auto) 4.5, Eos % (Auto) 1.1, Baso % (Auto) 1.2, Neut # (Auto) 5.3, Lymph # (Auto) 2.1, Garvin # (Auto) 0.4, Eos # (Auto) 0.1, Baso # (Auto) 0.1, Sodium 137, Potassium 4.2, Chloride 106, Carbon Dioxide 29, Anion Gap 6.2, BUN 8, Creatinine 0.50 L, Estimated Creat Clear 114, Estimated GFR 140, Est GFR ( Amer) 169, Glucose 96, Calcium 9.3, Total Bilirubin 0.4, AST 27, ALT 19, Alkaline Phosphatase 77, Troponin I < 0.01, Total Protein 7.6, Albumin 4.3, Globulin 3.3 H, Albumin/Globulin Ratio 1.3, HCG, Quant < 2 01/11/24 17:45 01/11/24 17:45 Orders (Tests/Meds): ED MEDICATIONS Generic Name Dose Route Start Last Admin Trade Name Freamrita PRN Reason Stop Dose Admin Sodium Chloride 10 ml 01/11/24 18:42 Sodium Chloride 0.9% 10ml Flush Syringe IV 02/10/24 18:41 NEEDED PRN Maintain IV Site Discontinued Medications Generic Name Dose Route Start Last Admin Trade Name Bang PRN Reason Stop Dose Admin Acetaminophen 1,000 mg 01/11/24 18:52 01/11/24 20:01 Acetaminophen 1,000mg/100ml Vial IV 01/11/24 18:53 1,000 mg ONCE ONE Administration Dexamethasone Sodium Phosphate 10 mg 01/11/24 18:52 01/11/24 20:16 Dexamethasone 4mg/Ml 1ml Vial IV 01/11/24 18:53 Not Given ONCE ONE Diphenhydramine HCl 25 mg 01/11/24 18:52 01/11/24 20:01 Diphenhydramine 50mg/Ml Vial IV 01/11/24 18:53 25 mg ONCE ONE Administration Lactated Ringer's 1,000 mls @ 999 mls/hr 01/11/24 18:53 01/11/24 20:00 Lactated Ringer's 1000 Ml Bag IV 01/11/24 19:53 999 mls/hr .Q1H1M ONE Administration Iopamidol 100 ml 01/11/24 21:10 01/11/24 21:11 Iopamidol-370 (76%);100ml Bottle IV 01/11/24 21:11 100 ml ONCE ONE Administration Ketorolac Tromethamine 15 mg 01/11/24 18:52 01/11/24 20:01 Ketorolac 30mg/Ml Vial IV 01/11/24 18:53 15 mg ONCE ONE Administration Prochlorperazine Edisylate 10 mg 01/11/24 18:52 01/11/24 20:02 Prochlorperazine 10mg/2ml Vial IV 01/11/24 18:53 10 mg ONCE ONE Administration Sodium Chloride 10 ml 01/11/24 21:10 01/11/24 21:11 Sodium Chloride 0.9% 10ml Syr (Rad Only) IV 01/11/24 21:11 10 ml ONCE ONE Administration ORDERS Category Date Time Status CT angio head Stat Cat Scan 01/11/24 19:[address] angio neck Stat Cat Scan 01/11/24 19:[address] head/brain wo con Stat Cat Scan 01/11/24 19:29 Completed XR chest portable Stat Exams 01/11/24 18:42 Completed Complete Blood Count Auto Diff Stat Lab 01/11/24 17:45 Completed Comprehensive Metabolic Panel Stat Lab 01/11/24 17:45 Completed HCG,Quantitative Stat Lab 01/11/24 17:45 Completed Troponin I Q3H Lab 01/12/24 00:45 Ordered Troponin I Stat Lab 01/11/24 17:45 Completed Medical Decision Narrative: 38-year-old female with history of Dnved-Juhvxxlut-Etmyl status post ablation presenting with headache. Patient has strong family history of aneurysms, she is concerned. She does not usually get headaches or migraines. Has had this headache for about 2 weeks. Getting worse. It is intense, photophobia associated. No other associated symptoms. Not made better or worse by anything in particular, [id number] NSAIDs have not helped. History obtained with patient. On arrival, NIH SS 0. In dark room, photophobic. Neurologically intact despite this. Otherwise normal exam. Patient was given Toradol, acetaminophen, Compazine, Benadryl for symptomatic management and correction of underlying abnormalities. Workup independently interpreted and significant for nonactionable CBC or chemistry. hCG negative, CT head without acute hemorrhage, CTA head and neck without acute/obvious aneurysm. Final read pending at time of discharge. See radiology read for full review of final results. On reevaluation, patient feeling much better after medications. Given patient presentation, workup, history, this most likely represents acute migraine headache. Because patient at baseline without signs or symptoms of clinical decompensation, deemed appropriate for discharge. Results were relayed to patient who voiced understanding and were agreeable to outpatient management and follow up. I discussed my clinical impression with patient and answered all questions. At this time, the evidence for any other entities in the differential is insufficient to warrant any further testing or ED observation. This was explained as well. Advisory was given that persistent or worsening symptoms require further evaluation. I confirmed the understanding of this discussion. Critical Care Critical Care Time Critical Care Time: No
--- NOTE | 2024-01-11 19:29 | CT_ITS ---
PROCEDURE INFORMATION: Exam: CT Head Without Contrast Exam date and time: 01/11/2024 9:04 PM Age: 38 years old Clinical indication: Pain; Headache; Additional info: CHANEY TECHNIQUE: Imaging protocol: Computed tomography of the head without contrast. Radiation optimization: All CT scans at this facility use at least one of these dose optimization techniques: automated exposure control; mA and/or kV adjustment per patient size (includes targeted exams where dose is matched to clinical indication); or iterative reconstruction. COMPARISON: CT ANGIO HEAD 01/11/2024 9:04 PM FINDINGS: Brain: Normal. No hemorrhage. Unremarkable white matter. No mass effect. Cerebral ventricles: No ventriculomegaly. Paranasal sinuses: Visualized sinuses are unremarkable. No fluid levels. Mastoid air cells: Visualized mastoid air cells are well aerated. Bones/joints: Unremarkable. No acute fracture. Soft tissues: Unremarkable. IMPRESSION: No acute intracranial abnormality.
--- NOTE | 2024-01-11 19:29 | CT_ITS ---
PROCEDURE INFORMATION: Exam: CTA Neck With Contrast Exam date and time: 01/11/2024 9:04 PM Age: 38 years old Clinical indication: Pain; Headache; Additional info: Fam HX aneurysm, severe CHANEY TECHNIQUE: Imaging protocol: Computed tomographic angiography of the neck with contrast. Exam focused on the cervical segments of the vasculature. 3D rendering (Not supervised by radiologist): MIP and/or 3D reconstructed images were created by the technologist. Radiation optimization: All CT scans at this facility use at least one of these dose optimization techniques: automated exposure control; mA and/or kV adjustment per patient size (includes targeted exams where dose is matched to clinical indication); or iterative reconstruction. Contrast material: ISOVUE; Contrast volume: 100 ml; Contrast route: INTRAVENOUS (IV); COMPARISON: CT ANGIO HEAD 01/11/2024 9:04 PM FINDINGS: Right common carotid artery: No stenosis. No dissection or occlusion. Right internal carotid artery: No stenosis of the extracranial segment. No dissection or occlusion. Right external carotid artery: No occlusion or stenosis of the origin. Left common carotid artery: No stenosis. No dissection or occlusion. Left internal carotid artery: No stenosis of the extracranial segment. No dissection or occlusion. Left external carotid artery: No occlusion or stenosis of the origin. Right vertebral artery: No stenosis. No dissection or occlusion. Left vertebral artery: No stenosis. No dissection or occlusion. Soft tissues: Normal. No significant soft tissue swelling. Bones/joints: No acute fracture. IMPRESSION: No stenosis or occlusion. REFERENCES: NASCET CRITERIA. The degree of stenosis in the cervical segment of the internal carotid artery is based on NASCET criteria. Normal is no stenosis. Mild is less than 50% stenosis. Moderate is 50-69% stenosis. Severe is 70% to 99% stenosis. Total occlusion is no detectable patent lumen.
--- NOTE | 2024-01-11 19:29 | CT_ITS ---
PROCEDURE INFORMATION: Exam: CTA Head With Contrast, Arteriography Exam date and time: 01/11/2024 9:04 PM Age: 38 years old Clinical indication: Pain; Headache; Additional info: Fam HX aneurysm, severe CHANEY TECHNIQUE: Imaging protocol: Computed tomographic angiography of the head with contrast. Exam focused on the arteries. 3D rendering (Not supervised by radiologist): MIP and/or 3D reconstructed images were created by the technologist. Radiation optimization: All CT scans at this facility use at least one of these dose optimization techniques: automated exposure control; mA and/or kV adjustment per patient size (includes targeted exams where dose is matched to clinical indication); or iterative reconstruction. Contrast material: ISOVUE; Contrast volume: 100 ml; Contrast route: INTRAVENOUS (IV); COMPARISON: CT HEAD/BRAIN WO CON 01/11/2024 9:04 PM FINDINGS: ANTERIOR CIRCULATION: Right internal carotid artery: Intracranial segment is patent with no significant stenosis. No aneurysm. Right middle cerebral artery: No occlusion or significant stenosis. No aneurysm. Right anterior cerebral artery: No occlusion or significant stenosis. No aneurysm. Left internal carotid artery: Intracranial segment is patent with no significant stenosis. No aneurysm. Left middle cerebral artery: No occlusion or significant stenosis. No aneurysm. Left anterior cerebral artery: No occlusion or significant stenosis. No aneurysm. POSTERIOR CIRCULATION: Right vertebral artery: No occlusion or significant stenosis. No aneurysm. Left vertebral artery: No occlusion or significant stenosis. No aneurysm. Basilar artery: No occlusion or significant stenosis. No aneurysm. Right posterior cerebral artery: No occlusion or significant stenosis. No aneurysm. Left posterior cerebral artery: No occlusion or significant stenosis. No aneurysm. Brain: No definite mass, mass effect, or midline shift. Cerebral ventricles: No ventriculomegaly. Bones/joints: Unremarkable. No acute fracture. Soft tissues: Unremarkable. IMPRESSION: No large vessel stenosis or occlusion.
[2024-01-11] MEDS: LACTATED RINGERS 1000ML 1,000 ML 999 ML IV (20:00)
[2024-01-11] MEDS: KETOROLAC 30MG/ML VIAL 15 MG IV (20:01)
[2024-01-11] MEDS: ACETAMINOPHEN 1,000MG/100ML VIAL 1000 MG IV (20:01)
[2024-01-11] MEDS: diphenhydrAMINE 50MG/ML VIAL 25 MG IV (20:01)
[2024-01-11 20:02] LABS: Basophils # 0.1 K/mm3 (0-0.2); Basophils % 1.2 % (0.1-2.0); Eosinophils # 0.1 K/mm3 (0.0-0.4); Eosinophils % 1.1 % (0.1-12.0); Hematocrit 47.2 % (37.0-47.0); Hemoglobin 14.9 g/dL (12.2-16.2); Lymphocytes # 2.1 K/mm3 (0.7-4.5); Lymphocytes % 26.7 % (10-50); Mean Corpuscular HGB Conc 31.6 g/dL (31.8-35.4); Mean Corpuscular Hemoglobin 32.3 pg (27.0-31.2); Mean Corpuscular Volume 102.1 fl (81-99); Mean Platelet Volume 7.6 fl (7.4-10.4); Monocytes # 0.4 K/mm3 (0.1-1.0); Monocytes % 4.5 % (1.7-9.3); Neutrophils # 5.3 K/mm3 (1.8-7.8); Neutrophils % 66.4 % (37.0-80.0); Platelet Count 426 K/mm3 (142-424); Red Blood Count 4.62 M/mm3 (4.20-5.40)
[2024-01-11] MEDS: PROCHLORPERAZINE 10MG/2ML VIAL 10 MG IV (20:02)
[2024-01-11 20:07] LABS: Chloride 106 mmol/L (98-107)
[2024-01-11 20:08] LABS: Potassium 4.2 mmoL/L (3.5-5.1); Sodium 137 mmol/L (136-145)
[2024-01-11 20:10] LABS: Alanine Aminotransferase 19 U/L (12-78); Alkaline Phosphatase 77 U/L (38-126); Aspartate Amino Transferase 27 U/L (14-36); Bilirubin,Total 0.4 mg/dl (0.2-1.3); Blood Urea Nitrogen 8 mg/dl (7-17); Creatinine Clearance Estimated 114 mL/min (50-200); Estimated Glomerular Filt Rate 140 ml/min (>60); GFR (African American) 169 ML/MIN (>60)
[2024-01-11 20:11] LABS: Albumin Level 4.3 g/dl (3.5-5.0); Albumin/Globulin Ratio 1.3 (1.1-1.8); Anion Gap 6.2 mEq/L (5-15); Calcium 9.3 mg/dl (8.4-10.2); Carbon Dioxide 29 mmol/L (22.0-30.0); Globulin 3.3 g/dL (1.3-3.2); Glucose 96 mg/dl (74-100); Total Protein,Serum 7.6 g/dl (6.3-8.2)
[2024-01-11 20:27] LABS: Troponin I < 0.01 ng/ml (0.00-0.034)
--- NOTE | 2024-01-11 20:35 | ECG_ITS ---
APPROVED REPORT Exam: Resting ECG HR:75 bpm ECG Measurements Heart Rate 75 AXES NJ 111 P 68 QRSd 86 QRS 64 QT 403 T 62 QTc 432 Conclusion SINUS RHYTHM WITH SINUS ARRHYTHMIA WITH SHORT NJ INTERVAL LOW QRS VOLTAGE IN PRECORDIAL LEADS [QRS DEFLECTION < 1.0 mV IN CHEST LEADS] BORDERLINE ECG ABSENT SHOW CARD WRITER V3 Electronically signed by : MARY RAMIRES, 01/12/2024 11:44:05
--- NOTE | 2024-01-11 20:38 | ECG_ITS ---
APPROVED REPORT Exam: Resting ECG HR:75 bpm ECG Measurements Heart Rate 75 AXES OH 112 P 72 QRSd 90 QRS 61 QT 391 T 58 QTc 419 Conclusion SINUS RHYTHM WITH SHORT [place] INTERVAL LOW QRS VOLTAGE IN PRECORDIAL LEADS [QRS DEFLECTION < 1.0 mV IN CHEST LEADS] BORDERLINE ECG ABSENT HPLC CHEMIST V3 Electronically signed by : MARY RAMIRES, 01/12/2024 11:43:34
[2024-01-11 20:57] LABS: HCG,Quantitative < 2 mIU/ml (0-5.42)
--- NOTE | 2024-01-11 21:02 | PC.NURSE ---
Pt transported to CT
[2024-01-11] MEDS: SODIUM CHLORIDE 0.9% 10ML SYR (RAD ONLY) 10 ML IV (21:11)
[2024-01-11] MEDS: IOPAMIDOL-370 (76%);100ML BOTTLE 100 ML IV (21:11)
[2024-01-11 21:28] VITALS: BP 106/68; PULSE 73; O2SAT 94
[2024-01-11 21:30] VITALS: BP 120/80; PULSE 78; O2SAT 100
[2024-01-11 21:44] VITALS: BP 120/80; PULSE 75; RESP 18; TEMP 36.8; O2SAT 100
== END 2024-01-11 21:52 | disposition home or self-care (01) ==
PROVIDERS: Emergency Provider Emergency Medicine; PCP Internal Medicine
DX: G43.911 Migraine, unspecified, intractable, with status migrainosus (principal); F17.210 Nicotine dependence, cigarettes, uncomplicated; I45.6 Pre-excitation syndrome
CPT/HCPCS: 70450; 70496; 70498; 71045; 80053; 84484; 84702; 85025; 93005; 96361; 96374; 96375; 99285; J0131; Q9967

== ENCOUNTER 2024-07-02 11:18 | Outpatient (CLI) | payer OTHER, SELFPAY ==
[2024-07-02 18:33] LABS: Basophils % 0.4 % (0.1-2.0); Eosinophils # 0.2 K/mm3 (0.0-0.4); Hematocrit 43.7 % (37.0-47.0); Hemoglobin 13.8 g/dL (12.2-16.2); Lymphocytes # 2.2 K/mm3 (0.7-4.5); Lymphocytes % 29.4 % (10-50); Mean Corpuscular HGB Conc 31.5 g/dL (31.8-35.4); Mean Corpuscular Volume 101.5 fl (81-99); Monocytes # 0.3 K/mm3 (0.1-1.0); Monocytes % 4.5 % (1.7-9.3); Neutrophils # 4.8 K/mm3 (1.8-7.8); Neutrophils % 63.7 % (37.0-80.0); Platelet Count 447 K/mm3 (142-424); Red Cell Distribution Width 12.8 % (11.5-17.5); White Blood Count 7.5 K/mm3 (4.8-10.8)
[2024-07-02 18:39] LABS: Hemoglobin A1C 5.3 % (4.0-6.0)
[2024-07-02 19:09] LABS: Alanine Aminotransferase 12 U/L (12-78); Alkaline Phosphatase 66 U/L (38-126); Aspartate Amino Transferase 23 U/L (14-36); Bilirubin,Total 0.5 mg/dl (0.2-1.3); Blood Urea Nitrogen 7 mg/dl (7-17); Calcium 9.7 mg/dl (8.4-10.2); Chloride 106 mmol/L (98-107); Estimated Glomerular Filt Rate 113 ml/min (>60); GFR (African American) 137 ML/MIN (>60); Glucose 99 mg/dl (74-100); Potassium 4.8 mmoL/L (3.5-5.1); Sodium 136 mmol/L (136-145); Total Protein,Serum 7.3 g/dl (6.3-8.2)
[2024-07-02 19:10] LABS: Albumin Level 4.3 g/dl (3.5-5.0); Albumin/Globulin Ratio 1.4 (1.1-1.8); Anion Gap 10.8 mEq/L (5-15); Carbon Dioxide 24 mmol/L (22.0-30.0)
[2024-07-02 19:11] LABS: Erythrocyte Sedimentation Rate 21 mm/hr (0-20)
[2024-07-02 19:19] LABS: HIV (1&2) Antibody Rapid NONREACTIVE (NONREACTIVE)
[2024-07-04 10:15] LABS: HBsAg Screen Negative (Negative); HCV Ab Non Reactive (Non Reactive); Hep A Ab, IGM Negative (Negative); Hep B Core Ab, IgM Negative (Negative)
== END 2024-07-02 23:59 | disposition home or self-care (01) ==
LOC: LAB.DROPOF 07-03 11:18
PROVIDERS: PCP Internal Medicine; Visit Provider Internal Medicine
DX: R51.9 Headache, unspecified (principal)
CPT/HCPCS: 80050; 80053; 80074; 83036; 84443; 85025; 85651; 86803; 87389

== ENCOUNTER 2024-07-12 16:11 | Outpatient (CLI) | payer OTHER, SELFPAY ==
--- NOTE | 2024-07-12 16:11 | MR_ITS ---
FINAL REPORT CLINICAL HISTORY: chronic daily headaches COMPARISON: None FINDINGS: Multiplanar MR imaging of the brain was performed without and with contrast. There is no evidence of intracranial hemorrhage or mass. No abnormal extra-axial fluid collection is seen. The ventricular size is within normal limits. There is no evidence of shift of the midline structures. The posterior fossa and brainstem have an unremarkable appearance. No area of abnormal restricted diffusion is identified. No abnormal contrast enhancement is seen. There is mild mucosal thickening in the paranasal sinuses. Normal major vessel vascular flow voids are noted. IMPRESSION: No acute intracranial abnormality identified. Reviewed, Interpreted and Dictated by Kwadwo Giron III, MD Transcribed by Ale Velasquez Authenticated and [facility]
[2024-07-12] MEDS: SODIUM CHLORIDE 0.9% 10ML SYR (RAD ONLY) 10 ML IV (17:01)
[2024-07-12] MEDS: GADOTERIDOL INJ 10ML SYRINGE 9 ML IV (17:01)
== END 2024-07-12 23:59 | disposition home or self-care (01) ==
LOC: RAD 16:11
PROVIDERS: PCP Internal Medicine; Visit Provider Internal Medicine
DX: R51.9 Headache, unspecified (principal)
CPT/HCPCS: 70553; A9576

== ENCOUNTER 2025-03-17 21:40 | Emergency (ER) | payer OTHER, SELFPAY ==
--- NOTE | 2025-03-17 21:38 | ECG_ITS ---
APPROVED REPORT Exam: Resting ECG HR:93 bpm ECG Measurements Heart Rate 93 AXES MN 96 P 79 QRSd 74 QRS 71 QT 315 T -85 QTc 366 Conclusion SINUS RHYTHM WITH SHORT MN INTERVAL ST DEVIATION AND MODERATE T-WAVE ABNORMALITY, CONSIDER LATERAL ISCHEMIA [-0.1+ mV T-WAVE IN I/aVL/V5/V6] ST DEVIATION AND MODERATE T-WAVE ABNORMALITY, CONSIDER INFERIOR ISCHEMIA [-0.1+ mV T-WAVE IN II/aVF] ABNORMAL ECG UNCONFIRMED REPORT Electronically signed by : OBED GORDON, 03/20/2025 01:18:19
[2025-03-17 21:41] VITALS: BP 133/83; PULSE 100; RESP 22; TEMP 37.7; O2SAT 98; BMI 18.6
--- NOTE | 2025-03-17 21:50 | XR_ITS ---
PROCEDURE INFORMATION: Exam: XR Chest Exam date and time: 03/17/2025 10:20 PM Age: 39 years old Clinical indication: Pain; Chest pressure; Additional info: Chest pain TECHNIQUE: Imaging protocol: Radiologic exam of the chest. Views: 1 view. COMPARISON: CR XR CHEST PORTABLE 01/11/2024 6:49 PM FINDINGS: Lungs: Poorly defined lingular opacity. Pleural spaces: Unremarkable. No pleural effusion. No pneumothorax. Heart/Mediastinum: Unremarkable. No cardiomegaly. Bones/joints: Unremarkable. IMPRESSION: Lingular infiltration.
--- OUTSIDE RECORDS SUMMARY | 2025-03-17 21:50 | XMS_ITS | Encounter Summary ---
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 Role Phone Unavailable Primary Care Provider Unavailabl e Encounter Details Date Type Department Care Team (Late st Contact Info) Description 04/26/2022 Transcribed Document [facility] [place] [address] [place] [address] ProviderSegundo MD [address] [place] [id number] Social History Tobacco Use Types Packs/Day Years Used Date Smoking Tobacco: Never Assessed Comments Unknown Sex and Gender Information Value Date Recorded Sex Assigned at Female 04/05/2022 9:05 PM CDT Legal Sex Female 9:05 PM CDT Gender Identity Female 04/05/2022 9:05 PM CDT Sexual Orientation Not on file documented as of this encounter Miscellaneous Notes * Cerner Conversion Note - Historical ProviderMD - 04/26/2022 3:22 PM CDT PAT Adult Entered On: 04/26/2022 15:26 EDT Performed On: 04/26/2022 15:22 EDT by Beverly Kee RN Vital Measurements Temperature Source : Temporal artery scanning Temperature Mode : Fahrenheit Temperature, Fahrenheit : 98.7 Deg F Clinical Temperature, C : 37.1 Deg C Pulse Method : Pulse Oximetry Peripheral Pulse Rate : 77 bpm Respiratory Rate : 18 Breaths/Min Blood Pressure Location : Arm, left upper Blood Pressure Source : Non-Invasive BP Device Blood Pressure Position : Sitting Systolic Blood Pressure : 111 mmHg Diastolic Blood Pressure : 63 mmHg Oxygen Saturation : 98 % Oxygen Therapy Mode : Room air Beverly Kee RN - 04/26/2022 15:22 EDT Height and Weight, Clinical Dosing Height Source : Measured Height Entry Format : [place] Height, Feet : 5 ft(Converted to: 152 cm, 60 Inch) Height, Inches : 4 Inch(Converted to: 0 ft 4 Inch, 10.16 cm) Clinical Height : 162.56 cm Weight Source : Standing scale Weight Entry Format : [place] Clinical Dosing Weight : 56.36 kg Weight, Pounds : 124 lb Body Surface Area (BSA) : 1.6 m2 Body Mass Index : 21.3 kg/m2 [place] Body Weight : 54 kg Beverly Kee RN - 04/26/2022 15:22 EDT Health Histories Smoking Status : 10 or more cigarettes (1/2 pack or more)/day in last 30 days Smokeless Tobacco Status : Never Desires Tobacco Cessation Medication : No Reason for No Tobacco Cessation Medication : Refuses FDA approved medications Beverly Kee RN - 04/26/2022 15:22 EDT Social History (As Of: 04/26/2022 15:26:09 EDT) Tobacco: 10 or more cigarettes (1/2 pack or more)/day in last 30 days Smoking Status. Never Smokeless Tobacco Status. Packs/Tins Daily: 1. Last Used: 22 years. (Last Updated: 03/03/2022 10:12:13 EDT by Lucy Mitchell, Marky) Alcohol: Alcohol Use History No. (Last Updated: 03/03/2022 10:12:13 EDT by Lucy Mitchell, Rn) Substance Abuse: Drug Use Hx: No. (Last Updated: 03/03/2022 10:12:13 EDT by Lucy Mitchell, Rn) Infectious Disease History Does patient have symptoms of COVID-19? : No Tested for COVID19 in the past 14 days : No, Patient stated Does the Patient state known exposure to a COVID-19 positive case in the last 14 days? : No Patient Vaccinated for COVID-19 : Not vaccinated Does Patient want a COVID-19 Vaccine? : No Beverly Kee RN - 04/26/2022 15:22 EDT Infectious Disease Risk Screening Grid Cough < 2 wks of unknown origin : NO Cough > 2 weeks : NO Blood in Sputum : NO Fever or self-reported Fever : NO Rash of unknown origin : NO Headache : NO Stiff neck : NO Night Sweats : NO Unexplained Weight Loss : NO Diarrhea (3 episode per day) : NO Beverly Kee RN - 04/26/2022 15:22 EDT Physical contact outside [place] in the last 30 days : No Hospitalized in Foreign Country : No Infectious Disease History : Other: Covid INF Disease TB Screening Calc : 0 INF Disease Recent Travel Calc : 0 Beverly Kee RN - 04/26/2022 15:22 EDT COVID19 PreProcedure Screening Is this an Emergent or Add on Procedure? : No Date PreProcedure COVID-19 test known? : No Has patient been isolated since the test : N/A - PreProcedure, in-person visit Exposed to COVID19 symptoms since test? : N/A - PreProcedure, in-person visit Beverly Kee RN - 04/26/2022 15:22 EDT Anesthesia/Transfusion History Family History of Anesthesia Reaction : No prior transfusion(s) Transfusion History : Prior anesthesia without reaction Family History of Anesthesia Reaction : None Beverly Kee RN - 04/26/2022 15:22 EDT Advance Directive Patient has Advance Directive *Q : No, patient refuses Advance Directive information Beverly Kee RN - 04/26/2022 15:22 EDT [place] Suicide Severity Rating Scale (C-SSRS) CSSRS Past Month Wish to be : No CSSRS Past Month Suicidal Thoughts : No CSSRS Lifetime Suicide Behavior : No Suicide Severity Rating Score : 0 Suicide Severity Rating : No Additional Care Required at this time Beverly Kee RN - 04/26/2022 15:22 EDT Psychosocial History Do You Have a History of the Following? : Anxiety, Bipolar Disorder, Post Traumatic Stress Disorder Currently in Unsafe Situation : No Beverly Kee RN - 04/26/2022 15:22 EDT Teaching/Learning Assessment Barriers To Learning : None evident Individuals Taught : Patient Readiness to Learn : Cooperative Baseline Knowledge of Topic : Comprehensive Readiness to Learn : Explanation, Printed materials Learning Style Preferences Patient : Printed materials, Verbal explanation Beverly Kee RN - 04/26/2022 15:22 EDT Education Topics, Periop Preadmission Perioperative Education Grid Arrival Time/Place : Verbalizes understanding Infection Control : Verbalizes understanding NPO Status/Directions : Verbalizes understanding Preprocedure Preparations : Verbalizes understanding Preprocedure Tests/Labs : Verbalizes understanding Remove Body Piercings : Verbalizes understanding Responsible Adult : Verbalizes understanding Take/Hold Medications Pre-Procedure : Verbalizes understanding Beverly Kee RN - 04/26/2022 15:22 EDT General Info Want Family/Rep/Phys Notified of Admit : No Emergency Contact #1 : Huy Tacho Emergency Contact #1 Emergency Contact #1 Relationship : Angelika Emergency Contact #2 : . Emergency Contact #2 Phone Number : . Emergency Contact #2 Relationship : . Primary Language : Swiss Communication Barrier : None Religious Education Director Needed : No Beverly Kee RN - 04/26/2022 15:22 EDT Ken Scale Ken Sensory Perception : Slightly limited Ken Moisture : Rarely moist Ken Activity : Walks occasionally Ken Mobility : Slightly limited Ken Nutrition : Excellent Ken Friction and Shear : No apparent problem Ken Score : 20 Beverly Kee RN - 04/26/2022 15:22 EDT Sleep Apnea Risk Assmt Hx of Obstructive Sleep Apnea Diagnosis : No Snore Loudly : No Tired, Fatigued, or Sleepy During Day : Yes Observed Stopping Breathing During Sleep : No Have/Are Being Treated for Hypertension : Yes BMI Greater Than 35 kg/m2 : No Age over 50 Years Old : No Neck Circumference Greater Than 40 cm : No Gender Male : No STOP-BANG Sleep Apnea Risk Level Score : 2 Beverly Kee RN - 04/26/2022 15:22 EDT documented in this encounter Plan of Treatment Not on file documented as of this encounter Visit Diagnoses Not on filedocumented in this encounter
--- OUTSIDE RECORDS SUMMARY | 2025-03-17 21:50 | XMS_ITS | Encounter Summary ---
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 Phone Unavailable Primary Care Provider Unavailabl e Encounter Details Date Type Department Care Team (Late st Contact Info) Description 04/29/2022 Transcribed Document [facility] [place] [facility] [place] [address] ProviderSegundo MD [address] [place] [address] Social History Tobacco Use Types Packs/Day [...] Cerner Conversion Note - Historical ProviderMD - 04/29/2022 10:56 AM CDT PAT Adult Entered On: 04/29/2022 10:57 EDT Performed On: 04/29/2022 10:56 EDT by MARIA INES BENJAMIN RN Vital Measurements Temperature Source : Temporal artery scanning Temperature Mode : Fahrenheit Temperature, Fahrenheit : 97.0 Deg F Clinical Temperature, C : 36.1 Deg C Pulse Method : Pulse Oximetry Pulse Source : Radial, Right Peripheral Pulse Rate : 89 bpm Pulse Rhythm : Regular Respiratory Rate : 16 Breaths/Min Blood Pressure Location : Arm, left upper Blood Pressure Source : Non-Invasive BP Device Blood Pressure Position : Side, Left Systolic Blood Pressure : 111 mmHg Diastolic Blood Pressure : 72 mmHg Oxygen Saturation : 95 % Oxygen Therapy Mode : Room air MARIA INES BENJAMIN RN - 04/29/2022 11:42 EDT Pain Assessment Pain Scale Used : 0-10 Scale Pain Location Comment : LOWER R BACK AND ABD CRAPMS MARIA INES BENJAMIN RN - 04/29/2022 11:42 EDT Height and Weight, Clinical Dosing Height Source : Measured Height Entry Format : [place] Height, Feet : 5 ft(Converted to: 152 cm, 60 Inch) Height, Inches : 4 Inch(Converted to: 0 ft 4 Inch, 10.16 cm) Clinical Height : 162.56 cm Weight Source : Standing scale Weight Entry Format : MARIA INES Jefferson RN - 04/29/2022 10:56 EDT Clinical Dosing Weight : 54.27 kg Weight, Pounds : 119.4 lb Body Surface Area (BSA) : 1.57 m2 Body Mass Index : 20.5 kg/m2 MARIA INES BENJAMIN RN - 04/29/2022 11:42 EDT [place] Body Weight : 54 kg MARIA INES BENJAMIN RN - 04/29/2022 10:56 EDT Health Histories Desires Tobacco Cessation Medication : No Reason for No Tobacco Cessation Medication : Refuses FDA approved medications MARIA INES BENJAMIN RN - 04/29/2022 11:28 EDT Smoking Status : 10 or more cigarettes (1/2 pack or more)/day in last 30 days Smokeless Tobacco Status : Never MARIA INES BENJAMIN RN - 04/29/2022 10:56 EDT Social History (As Of: 04/29/2022 11:49:28 EDT) Tobacco: 10 or more cigarettes (1/2 pack or more)/day in last 30 days Smoking Status. Never Smokeless Tobacco Status. Packs/Tins Daily: 1. Last Used: 22 years. (Last Updated: 03/03/2022 10:12:13 EDT by Lucy Mitchell, Rn) Alcohol: Alcohol Use History No. (Last Updated: [...] Patient want a COVID-19 Vaccine? : No MARIA INES BENJAMIN RN - 04/29/2022 11:42 EDT Infectious Disease Risk Screening Grid Cough < 2 wks of unknown origin : NO Cough > 2 weeks : NO Blood in Sputum : NO Fever or self-reported Fever : NO Rash of unknown origin : NO Headache : NO Stiff neck : NO Night Sweats : NO Unexplained Weight Loss : NO Diarrhea (3 episode per day) : NO MARIA INES BENJAMIN RN - 04/29/2022 11:42 EDT Patient Masked? : Yes Physical contact outside [place] in the last 30 days : No Hospitalized in Foreign Country : No Infectious Disease History : Other: Covid Exposure to Contagious Illness : No INF Disease TB Screening Calc : 0 INF Disease Recent Travel Calc : 0 MARIA INES BENJAMIN RN - 04/29/2022 11:42 EDT COVID19 PreProcedure Screening Is this an Emergent or Add on Procedure? : No Date PreProcedure COVID-19 test known? : No Has patient been isolated since the test : N/A - PreProcedure, in-person visit Exposed to COVID19 symptoms since test? : No MARIA INES BENJAMIN RN - 04/29/2022 11:42 EDT Anesthesia/Transfusion History Family History of Anesthesia Reaction : No prior transfusion(s) Transfusion History : Prior anesthesia without reaction Family History of Anesthesia Reaction : None MARIA INES BENJAMIN RN - 04/29/2022 10:56 EDT Functional Assessment Functional ADL Evaluation Index EBN Bathing : Independent (2) Dressing : Independent (2) Toileting : Independent (2) Transferring Bed or Chair : Independent (2) Continence : Independent (2) Feeding : Independent (2) MARIA INES BENJAMIN RN - 04/29/2022 11:28 EDT ADL Index Score : 12 MARIA INES BENJAMIN RN - 04/29/2022 11:28 EDT Advance Directive Patient has Advance Directive *Q : No, patient refuses Advance Directive information MARIA INES BENJAMIN RN - 04/29/2022 10:56 EDT Spiritual/Cultural Needs Any Spiritual/Cultural Needs or Requests : Yes MARIA INES BENJAMIN RN - 04/29/2022 11:42 EDT [place] Suicide Severity Rating Scale (C-SSRS) CSSRS Past Month Wish to be : No CSSRS Past Month Suicidal Thoughts : No CSSRS Lifetime Suicide Behavior : No Suicide Severity Rating Score : 0 Suicide Severity Rating : No Additional Care Required at this time Thoughts of Harming/Killing Others : No MARIA INES BENJAMIN RN - 04/29/2022 11:28 EDT Psychosocial History Do You Have a History of the Following? : Anxiety, Bipolar Disorder, Post Traumatic Stress Disorder Currently in Unsafe Situation : No Do You Have a Support System? : Yes MARIA INES BENJAMIN RN - 04/29/2022 11:28 EDT Teaching/Learning Assessment Barriers To Learning : None evident Individuals Taught : Patient, Parent Readiness to Learn : Cooperative Baseline Knowledge of Topic : Good Readiness to Learn : Explanation, Printed materials Learning Style Preferences Patient : Printed materials, Verbal explanation Learning Style Preferences Family : Printed materials, Verbal explanation MARIA INES BENJAMIN RN - 04/29/2022 11:42 EDT Education Topics, Periop Preadmission Perioperative Education Grid Arrival Time/Place : Verbalizes understanding Falls : Verbalizes understanding IV's : Verbalizes understanding NPO Status/Directions : Verbalizes understanding Pain Management : Verbalizes understanding Preprocedure Preparations : Verbalizes understanding Preprocedure Tests/Labs : Verbalizes understanding Responsible Adult : Verbalizes understanding Take/Hold Medications Pre-Procedure : Verbalizes understanding MARIA INES BENJAMIN RN - 04/29/2022 11:42 EDT General Info Arrived From : Home Mode of Arrival on Unit : Ambulatory Patient Arrival Date/Time : 04/29/2022 11:27 EDT Legal Guardian : Mother Information Obtained From : Patient Preferred Communication Mode : Verbal Currently Lactating : No Status : Patient denies MARIA INES BENJAMIN RN - 04/29/2022 11:42 EDT Want Family/Rep/Phys Notified of Admit : No Emergency Contact #1 : Huy Titus Emergency Contact #1 Emergency Contact #1 Relationship : Angelika Emergency Contact #2 : . Emergency Contact #2 Phone Number : . Emergency Contact #2 Relationship : . Primary Language : Chilean Communication Barrier : None [place] Redevelopment Specialist Needed : No MARIA INES BENJAMIN RN - 04/29/2022 10:56 EDT Ken Scale Ken Sensory Perception : No impairment Ken Moisture : Rarely moist Ken Activity : Walks frequently Ken Mobility : Slightly limited Ken Nutrition : Excellent Ken Friction and Shear : No apparent problem Ken Score : 22 MARIA INES BENJAMIN RN - 04/29/2022 11:42 EDT Sleep Apnea Risk Assmt Hx of [...] Sleep Apnea Risk Level Score : 2 MARIA INES BENJAMIN RN - 04/29/2022 10:56 EDT Pain Scale Intensity : 8 MARIA INES BENJAMIN RN - 04/29/2022 11:42 EDT Image 4 - Images currently included in the form version of this document have not been included in the text rendition version of the form. documented in this encounter Plan of Treatment Not on file documented as of this encounter Visit Diagnoses Not on filedocumented in this encounter
--- OUTSIDE RECORDS SUMMARY | 2025-03-17 21:50 | XMS_ITS | Encounter Summary ---
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 Role Phone Unavailable Primary Care Provider Unavailabl e Encounter Details Date Type Department Care Team (Late st Contact Info) Description 04/29/2022 Transcribed Document [facility] [place] [address] [place] [address] ProviderSegundo MD [address] [place] [address] Social History Tobacco Use Types Packs/Day Years Used Date Smoking Tobacco: Never Assessed Comments Unknown Sex and Gender Information Value Date Recorded Sex Assigned at Female 04/05/2022 9:05 PM CDT Legal Sex Female 9:05 PM CDT Gender Identity Female 04/05/2022 9:05 PM CDT Sexual Orientation Not on file documented as of this encounter Miscellaneous Notes * Cerner Conversion Note - Historical Provider, - 04/29/2022 12:46 PM CDT [facility] [place] PACU Summary Primary Physician: CHARANJIT SOTELO MD-ORT Finalized Date/Time: 04/29/22 14:53:34 Pt. Name: VEENA NAILS /Sex: 1985 Female Med Rec #: [id number] Physician: CHARANJIT SOTELO MD-ORT Financial #: [id number] Pt. Type: O Room/Bed: [facility] Admit/Disch: 04/29/22 05:15:00 - Institution: [facility] OR PACU Case Times Entry 1 In PACU I 04/29/22 13:40:00 Ready for PACU 04/29/22 14:24:00 Discharge Discharge from PACU 04/29/22 14:24:00 I Last Modified By: Leatha Arellano Rn 04/29/22 14:53:24 Finalized By: Leatha Arellano, Rn Document Signatures Signed By: Leatha Arellano Rn 04/29/22 14:53 Electronically signed by [facility] Conversion Packaging Supervisor Cerner at 01/29/2023 5:01 PM CDT documented in this encounter Plan of Treatment Not on file documented as of this encounter Visit Diagnoses Not on filedocumented in this encounter
--- OUTSIDE RECORDS SUMMARY | 2025-03-17 21:50 | XMS_ITS | Encounter Summary ---
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 Role Phone Unavailable Primary Care Provider Unavailabl e Encounter Details Date Type Department Care Team (Late st Contact Info) Description 04/29/2022 Transcribed Document [facility] [place] [address] [place] [address] ProviderSegundo MD [facility] [place], [place] [address] Social History Tobacco Use Types Packs/Day Years Used Date Smoking Tobacco: Never Assessed Comments Unknown Sex and Gender Information Value Date Recorded Sex Assigned at Female 04/05/2022 9:05 PM CDT Legal Sex Female 9:05 PM CDT Gender Identity Female 04/05/2022 9:05 PM CDT Sexual Orientation Not on file documented as of this encounter Miscellaneous Notes * Cerner Conversion Note - Segundo ProviderMD - 04/29/2022 2:49 PM CDT Patient Education Materials Follows: How to Use a Walker This sheet gives you information about how to use a walker. Your health care provider may also: ??? Give you more specific instructions based on your condition. ??? Give you instructions on how to use your legs or arms to support your body weight (weight bearing). What are the risks? Using a walker is generally safe. However, it may cause falls if it is not used correctly. How to walk with a walker The best way to walk with a walker depends on whether you are using a standard walker or a front-wheeled walker. A standard walker has rubber tips on the ends of all four legs. A front-wheeled walker has wheels on the ends of the front legs and rubber tips on the ends of the back legs. ??? Do not use your walker on stairs or an escalator unless you have been trained by a physical therapist and your health care provider approves. Standard walker 1. nitroglycerin supervisor your walker. Do not slide your standard walker. 2. Set down your walker, one step-length in front of you. Make sure that all four legs of the walker touch the ground at the same time. Your toes should be farther forward than the back legs of your walker. 3. Hold on to the walker, and press it with your arms for support. 4. Step your weaker leg into the middle of the walker. Step your stronger leg forward to land next to your weaker leg. 5. Repeat this process for each step. Front-wheeled walker 1. Slide your front-wheeled walker one step-length in front of you. Your toes should be farther forward than the back legs of your walker. 2. Hold on to the walker for support and press through the handrails as needed for support. 3. Step your weaker leg into the middle of the walker. Step your stronger leg forward to land next to your weaker leg. 4. Repeat the process for each step. Tips ??? Always keep both feet within the width of the walker's legs or wheels. ??? When using your walker, you should not feel like you need to lean forward or to the side to keep your hands on the handgrips. ??? Make sure you are following any weight-bearing instructions that your health care provider gave you. ??? If you have a standard walker: ? Do not slide your walker when you are moving. ??? If you have a front-wheeled walker: ? Be careful not to let the walker get too far ahead of you as you walk. ? If your walker does not glide well over carpet, consider cutting an X into two tennis balls and placing the balls over the back legs of your walker. How to stand up with a walker 1. Put your walker in front of you. 2. Slide forward in your chair. 3. Position your legs so that your weaker leg is ahead of you and your stronger leg is bent and near your chair. 4. Position your hands. ??? If your chair has armrests, put each hand on an armrest. ??? If there are no armrests, put the hand opposite your weaker leg on the chair seat, and put the other hand on the center of the walker's crossbar. 5. Lean forward and push up from your chair. 6. Rise by straightening your stronger leg. 7. Steady yourself. 8. Carefully move your hands to the handgrips of the walker. Tips ??? Do not pull on the walker when you stand up. This may cause it to tip. ??? Sit in a firm chair whenever you can. A low seat or an overstuffed chair or sofa is hard to get out of. How to sit down with a walker Seat with armrests 1. Back up toward your seat, using your walker, until you feel the back of your legs touch the chair. 2. Carefully reach your hands behind you and put each hand on an armrest. 3. Slowly lower yourself into the seat with your injured leg out in front. Seat without armrests 1. Back up toward the side of the seat, using your walker, until you feel the back of your legs touch the chair. 2. Use one hand to hold on to the back of the chair, and use the other hand to hold on to the front of the seat. 3. Slowly lower yourself into the seat. How to use a walker on a curb or step Stepping up 1. Put all four legs of the walker on the curb or step. 2. Get your feet as close to the curb or step as you can. 3. Test the steadiness of the walker by pressing down on the handgrips. 4. If the walker is steady, press down on it with your hands as you step up with your stronger leg. 5. Step up with your weaker leg. Stepping down 1. Put all four legs of the walker on the surface that is lower than the curb or step. 2. Get your feet as close to the curb or step as you can. 3. Test the steadiness of the walker by pressing down on the handgrips. 4. If the walker is steady, press down on it with your hands as you step down with your weaker leg. 5. Step down with your stronger leg. Summary ??? Follow specific instructions from your health care provider on how to use a walker. ??? Do not use your walker on stairs or an escalator unless you have been trained by a physical therapist and your health care provider approves. ??? Make sure you are following any weight-bearing instructions that your health care provider gave you. This information is not intended to replace advice given to you by your health care provider. Make sure you discuss any questions you have with your health care provider. Document Revised: 11/25/2020 Document Reviewed: 08/21/2019 [employer] Patient Education ? 2020 [employer]. Surgical Spinal Decompression Spinal decompression is a surgery to create more space for the spinal cord. It is done to relieve pressure on the spinal cord and nerves in the spine when that pressure causes symptoms, such as: ??? Severe pain. ??? Weakness. ??? Numbness. ??? Trouble emptying one's bladder or bowel (retention). ??? Trouble controlling one's bladder or bowel (incontinence). There are several types of spinal decompression. They include: ??? Laminectomy. This type is done to remove the bony arch at the back of the bones of the spine (vertebrae), which forms the spinal canal. ??? Diskectomy. This type is done to remove a disk between vertebrae. ??? Microdiskectomy. This type is done to remove part of a spinal disk. ??? Foraminotomy. This type is done to widen the bony passage that spinal nerves pass through. ??? Corpectomy or vertebrectomy. This type is done to remove a vertebra. If the spinal decompression makes the spine unstable, spinal decompression may be done along with a procedure to join two or more vertebrae together (spinal fusion). Tell a health care provider about: ??? Any allergies you have. ??? All medicines you are taking, including vitamins, herbs, eye drops, creams, and mues-xdc-ucjpuxq medicines. ??? Any problems you or family members have had with anesthetic medicines. ??? Any blood disorders you have. ??? Any surgeries you have had. ??? Any medical conditions you have. ??? Whether you are or may be . What are the risks? Generally, this is a safe procedure. However, problems may occur, including: ??? Bleeding. ??? Infection. ??? Allergic reactions to medicines or dyes. ??? Damage to other structures or organs, such as nerves or the spinal cord. ??? A blood clot that forms in the leg and travels to the lung (pulmonary embolism). ??? Failure to relieve your symptoms. ??? Need for more surgery. What happens before the procedure? Staying hydrated Follow instructions from your health care provider about hydration, which may include: ??? Up to 2 hours before the procedure ? you may continue to drink clear liquids, such as water, clear fruit juice, black coffee, and plain tea. Eating and drinking restrictions Follow instructions from your health care provider about eating and drinking, which may include: ??? 8 hours before the procedure ? stop eating heavy meals or foods, such as meat, fried foods, or fatty foods. ??? 6 hours before the procedure ? stop eating light meals or foods, such as toast or cereal. ??? 6 hours before the procedure ? stop drinking milk or drinks that contain milk. ??? 2 hours before the procedure ? stop drinking clear liquids. Medicines Ask your health care provider about: ??? Changing or stopping your regular medicines. This is especially important if you are taking diabetes medicines or blood thinners. ??? Taking medicines such as aspirin and ibuprofen. These medicines can thin your blood. Do not take these medicines unless your health care provider tells you to take them. ??? Taking aoyf-bei-ljrstml medicines, vitamins, herbs, and supplements. Surgery safety Ask your health care provider: ??? How your surgery site will be marked. ??? What steps will be taken to help prevent infection. These steps may include: ? Removing hair at the surgery site. ? Washing skin with a germ-killing soap. ? Taking antibiotic medicine. General instructions ??? Do not use any products that contain nicotine or tobacco for at least 4 weeks before the procedure. These products include cigarettes, e-cigarettes, and chewing tobacco. If you need help quitting, ask your health care provider. ??? You may have some tests and imaging to help plan the procedure. They include: ? CT scan or MRI. ? Diskogram. This is an X-ray of the affected area. ??? Plan to have someone take you home from the hospital. ??? Plan to have a responsible adult care for you for at least 24 hours after you leave the hospital. This is important. What happens during the procedure? An IV will be inserted into one of your veins. ??? You will be given one or more of the following: ? A medicine to help you relax (sedative). ? A medicine to numb the area (local anesthetic). ? A medicine to make you fall asleep (general anesthetic). ? A medicine that is injected into your spine to numb the area below the injection site (spinal anesthetic). ??? The surgeon will make an incision near your spine. If the affected part of the spine is in the neck, the incision may be made in the front or back of the neck. The length of the incision will depend on how many vertebrae and disks are affected and whether spinal fusion will be needed. ??? Your surgeon may move muscles and nerves so the affected part of the spine can be seen easily. ??? The surgeon will do the appropriate type of spinal decompression. ??? If needed, a spinal fusion will be done. ??? The muscles and nerves will be put back in their normal position. ??? The incision may be closed with stitches (sutures) or zaira. ??? A small drain may be placed close to your incision to prevent fluid or blood from pooling in your incision. The drain will be removed within 1?2 days. ??? A bandage (dressing) will be placed over the incision. The procedure may vary among health care providers and hospitals. What happens after the procedure? Your blood pressure, heart rate, breathing rate, and blood oxygen level will be monitored until you leave the hospital or clinic. ??? Your IV may be removed when you are able to drink fluids on your own. ??? You will receive pain medicine as needed. ??? You will be encouraged to get up and walk around as soon as you can. ??? You may have to wear compression stockings. These stockings help to prevent blood clots and reduce swelling in your legs. Summary ??? Spinal decompression is a surgery to create more space for the spinal cord. ??? The surgery may be done to relieve symptoms such as severe pain, weakness, numbness, or difficulty controlling one's bowel or bladder (incontinence). ??? Before the procedure, make plans to have a responsible adult care for you for at least 24 hours after you leave the hospital. This information is not intended to replace advice given to you by your health care provider. Make sure you discuss any questions you have with your health care provider. Document Revised: 01/13/2021 Document Reviewed: 01/13/2021 [employer] Patient Education ? 2020 [employer] Lumbar Diskectomy, Care After This sheet gives you information about how to care for yourself after your procedure. Your health care provider may also give you more specific instructions. If you have problems or questions, contact your health care provider. What can I expect after the procedure? After the procedure, it is common to have: ??? Pain in the lower back, in the area of the incision. ??? Numbness in the legs or in the lower back. ??? Weakness in the legs. Follow these instructions at home: Medicines ??? Take sdcs-ojo-mjkxoen and prescription medicines as told by your health care provider. Finish all antibiotic medicine even when you start to feel better. ??? If you were prescribed an antibiotic medicine, take it as told by your health care provider. Do not stop using the antibiotic even if you start to feel better. ??? Ask your health care provider if the medicine prescribed to you: ? Requires you to avoid driving or using machinery. ? Can cause constipation. You may need to take these actions to prevent or treat constipation: ? Drink enough fluid to keep your urine pale yellow. ? Take oblp-rsf-wxanndy or prescription medicines. ? Eat foods that are high in fiber, such as beans, whole grains, and fresh fruits and vegetables. ? Limit foods that are high in fat and processed sugars, such as fried or sweet foods. Incision care ??? Follow instructions from your health care provider about how to take care of your incision. Make sure you: ? Wash your hands with soap and water for at least 20 seconds before you change your bandage (dressing). If soap and water are not available, use hand dental assistant teacher. ? Change your dressing as told by your health care provider. You may need to have someone change your dressing for you. ? Leave stitches (sutures), skin glue, or adhesive strips in place. These skin closures may need to stay in place for 2 weeks or longer. If adhesive strip edges start to loosen and curl up, you may trim the loose edges. Do not remove adhesive strips completely unless your health care provider tells you to do that. ??? Check your incision area every day for signs of infection. If you cannot see your incision, have someone check it for you. Check for: ? More redness, swelling, or pain. ? Fluid or blood. ? Warmth. ? Pus or a bad smell. Bathing ??? Do not take baths, swim, or use a hot tub until your health care provider approves. Ask your health care provider if you may take showers. You may only be allowed to take sponge baths. ??? Keep the dressing dry until your health care provider says it can be removed. Activity ??? Rest as told by your health care provider. ??? Avoid sitting or lying for a long time without moving. Get up to take short walks every 1?2 hours. This is important to improve blood flow and breathing. Ask for help if you feel weak or unsteady. ??? Do not climb stairs more than one time each day until your health care provider approves. ??? Do not bend or twist at the waist until your health care provider approves. To lower yourself to pick things up, bend your knees instead of tipping your upper body forward. ??? Do not lift anything that is heavier than 10 lb (4.5 kg), or the limit that you are told, until your health care provider says that it is safe. Avoid lifting anything above the level of your head. ??? Avoid pushing and pulling motions, or other motions that require a lot of effort, such as vacuuming. ??? Do exercises as told by your health care provider. ??? Return to your normal activities as told by your health care provider. Ask your health care provider what activities are safe for you. Managing pain, stiffness, and swelling ??? If directed, put ice on the affected area. To do this: ? If you have a removable brace, remove it as told by your health care provider. ? Put ice in a plastic bag. ? Place a towel between your skin and the bag. ? Leave the ice on for 20 minutes, 2-3 times a day. ? Remove the ice if your skin turns bright red. This is very important. If you cannot feel pain, heat, or cold, you have a greater risk of damage to the area. Driving ??? If you were given a sedative during the procedure, it can affect you for several hours. Do not drive or operate machinery until your health care provider says that it is safe. ??? Ask your health care provider when it is safe to drive. General instructions ??? Take itcv-xyk-rmfsznu and prescription medicines only as told by your health care provider. ??? Do not use any products that contain nicotine or tobacco, such as cigarettes and e-cigarettes. These can delay bone healing. If you need help quitting, ask your health care provider. ??? If you have a back brace, wear it as told by your health care provider. Remove it only as told by your health care provider. ??? Keep all follow-up visits. This is important. Contact a health care provider if: ??? You have a fever. ??? Your pain is not controlled with medicine. ??? You have pain, numbness, or weakness that lasts longer than 3 weeks after surgery. ??? You become constipated. ??? You have more redness, swelling, or pain in your incision area. ??? You have fluid or blood coming from your incision. ??? Your incision feels warm to the touch. ??? You have pus or a bad smell coming from your incision. Get help right away if: ??? You have increasing pain, numbness, or weakness. ??? You lose control of when you urinate or have a bowel movement (incontinence). ??? You have chest pain. ??? You have trouble breathing. ??? You have pain or swelling in your lower leg. ??? You have confusion or are difficult to wake up. These symptoms may represent a serious problem that is an emergency. Do not wait to see if the symptoms will go away. Get medical help right away. Call your local emergency services (911 in the [place] Do not drive yourself to the hospital. Summary ??? After a lumbar diskectomy, it is common to have pain in the lower back and numbness or weakness in the legs. These should improve in a short amount of time. ??? Be sure to check your incision every day for signs of infection. Change dressings and bathe as told by your health care provider. ??? Return to your normal activities as told by your health care provider and physical therapist. Avoid twisting, bending, or lifting until your health care provider approves. ??? Make sure you know which symptoms should cause you to contact your health care provider or to get help right away. This information is not intended to replace advice given to you by your health care provider. Make sure you discuss any questions you have with your health care provider. Document Revised: 01/13/2021 Document Reviewed: 01/13/2021 [employer] Patient Education ? 2020 [employer] Pharmacology General Anesthesia, Adult, Care After This sheet gives you information about how to care for yourself after your procedure. Your health care provider may also give you more specific instructions. If you have problems or questions, contact your health care provider. What can I expect after the procedure? After the procedure, the following side effects are common: ??? Pain or discomfort at the IV site. ??? Nausea. ??? Vomiting. ??? Sore throat. ??? Trouble concentrating. ??? Feeling cold or chills. ??? Feeling weak or tired. ??? Sleepiness and fatigue. ??? Soreness and body aches. These side effects can affect parts of the body that were not involved in surgery. Follow these instructions at home: For the time period you were told by your health care provider: ??? Rest. ??? Do not participate in activities where you could fall or become injured. ??? Do not drive or use machinery. ??? Do not drink alcohol. ??? Do not take sleeping pills or medicines that cause drowsiness. ??? Do not make important decisions or sign legal documents. ??? Do not take care of children on your own. Eating and drinking ??? Follow any instructions from your health care provider about eating or drinking restrictions. ??? When you feel hungry, start by eating small amounts of foods that are soft and easy to digest (bland), such as toast. Gradually return to your regular diet. ??? Drink enough fluid to keep your urine pale yellow. ??? If you vomit, rehydrate by drinking water, juice, or clear broth. General instructions ??? If you have sleep apnea, surgery and certain medicines can increase your risk for breathing problems. Follow instructions from your health care provider about wearing your sleep device: ? Anytime you are sleeping, including during daytime naps. ? While taking prescription pain medicines, sleeping medicines, or medicines that make you drowsy. ??? Have a responsible adult stay with you for the time you are told. It is important to have someone help care for you until you are awake and alert. ??? Return to your normal activities as told by your health care provider. Ask your health care provider what activities are safe for you. ??? Take txht-ysp-rqejruj and prescription medicines only as told by your health care provider. ??? If you smoke, do not smoke without supervision. ??? Keep all follow-up visits as told by your health care provider. This is important. Contact a health care provider if: ??? You have nausea or vomiting that does not get better with medicine. ??? You cannot eat or drink without vomiting. ??? You have pain that does not get better with medicine. ??? You are unable to pass urine. ??? You develop a skin rash. ??? You have a fever. ??? You have redness around your IV site that gets worse. Get help right away if: ??? You have difficulty breathing. ??? You have chest pain. ??? You have blood in your urine or stool, or you vomit blood. Summary ??? After the procedure, it is common to have a sore throat or nausea. It is also common to feel tired. ??? Have a responsible adult stay with you for the time you are told. It is important to have someone help care for you until you are awake and alert. ??? When you feel hungry, start by eating small amounts of foods that are soft and easy to digest (bland), such as toast. Gradually return to your regular diet. ??? Drink enough fluid to keep your urine pale yellow. ??? Return to your normal activities as told by your health care provider. Ask your health care provider what activities are safe for you. This information is not intended to replace advice given to you by your health care provider. Make sure you discuss any questions you have with your health care provider. Document Revised: 06/10/2021 Document Reviewed: 01/07/2021 [employer] Patient Education ? 2020 [employer] documented in this encounter Plan of Treatment Not on file documented as of this encounter Visit Diagnoses Not on filedocumented in this encounter
--- OUTSIDE RECORDS SUMMARY | 2025-03-17 21:50 | XMS_ITS | Referral Summary ---
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
--- OUTSIDE RECORDS SUMMARY | 2025-03-17 21:50 | XMS_ITS | Encounter Summary ---
Author Organization [employer] Address [address] [place] [address] Care Team Providers Care Fish Egg Packer Name Role Phone Unavailable Primary Care Provider Unavailabl e Encounter Details Date Type Department Care Team (Late st Contact Info) Description 04/29/2022 Transcribed Document [facility] [place] Family Medicine [address] [place] [address] ProviderSegundo MD [address] [place] [id number] Social History Tobacco Use Types Packs/Day Years [...] Conversion Note - Historical ProviderMD - 04/29/2022 11:49 AM CDT Spiritual Care Assessment Entered On: 04/29/2022 14:42 EDT Performed On: 04/29/2022 11:49 EDT by PUJA WILKINS Chaplain General Information Initial Visit : Yes Referred by : Nurse Referral Reason Comment : pre-surgery prayer Ministry Provided to : Patient, Family/Significant other Spiritual/Emotional Acuity : Low Spiritual Framework : Unknown Jehovah'S Witness Preference : Unknown PUJA WILKINS Chaplain - 04/29/2022 14:41 EDT Spiritual Assessment Patient's Community/Relationship : Strength in patient's life Supportive/Healthy Relationships : Yes Patient's Sense of Meaning : Strength in patient's life Spiritual Assessment Comment/Summary Points : Pre-surgery visit to patient, her mom ws with her. Patient was nervous about her surgery but looking forward to feeling better. Prayed with her and mom for her surgery and recovery. Spirital Assessment Comment/Summary Report : SPIRITUAL ASSESSMENT COMMENT/SUMMARY No qualifying data available. PUJA WILKINS Chaplain - 04/29/2022 14:41 EDT Interventions Emotional Support : Empathic/Engaged listening, Established trust, Family/Significant other supported, Hope strengths identified, Relationship strengths identified Spiritual and Jehovah'S Witness : Prayer shared PUJA WILKINS Chaplain - 04/29/2022 14:41 EDT Electronically signed by [facility] Conversion Racquet Maker Cerner at 01/29/2023 5:00 PM CDT documented in this encounter Plan of Treatment Not on file documented as of this encounter Visit Diagnoses Not on filedocumented in this encounter
--- OUTSIDE RECORDS SUMMARY | 2025-03-17 21:50 | XMS_ITS | Encounter Summary ---
Author Organization [employer] Address [address] [place] [address] Care Team Providers Care Supervisor Chlorine Liquefaction Name Role Phone Unavailable Primary Care Provider Unavailabl e Encounter Details Date Type Department Care Team (Late st Contact Info) Description 04/29/2022 Transcribed Document [facility] [place] Family Medicine [facility] [place] [address] ProviderSegundo MD [address] [place] [address] [id number] Social History Tobacco Use Types Packs/Day Years [...] Conversion Note - Segundo ProviderMD - 04/29/2022 10:02 AM CDT Patient: VEENA NAILS Age: 36 years Sex: Female : 1985 Associated Diagnoses: None Author: CHARANJIT SOTELO MD-ORT Operative Report DATE OF PROCEDURE April 29, 2022 PREOPERATIVE DIAGNOSIS(ES): 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 SURGEON: Charanjit Sotelo MD. FOREIGN EXCHANGE POSITION CLERK: Mateo Vale The duties of the drilling assistantJonnie to help assist transferring the patient off the preoperative stretcher onto the OR table. Assistance with positioning of the patient, padding. During surgery, careful retraction, suction, allowing for visualization of the nerve root, and carefully protecting the neural structures. At the end of procedure, assistance with wound closure. Thereafter transferring of the patient off the operating room table, onto the postoperative stretcher. ANESTHESIA General. ESTIMATED BLOOD LOSS: LESS than 10 mL COMPLICATIONS: None. FLUOROSCOPY TIME: 15 seconds FINDINGS: right sided herniation, with herniation compressing against the traversing S1 nerve root, and the exiting L5 nerve root. There is very little disc space remaining. The endplate of L5 is on the endplate of S1, and between the 2 surfaces was herniated disc, and with the disc fragment was compressing up against a traversing S1 nerve root. SURGICAL INDICATORS: 1-1/2-year month history of progressively increasing severe back pain with right lower extremity pain. Numbness and weakness of the right lower extremity up. Right lower extremity almost on hold the patient up. Nighttime pain. Refractory to physical therapy exercises, anti-inflammatory medication pain medication. Pain-S1 radiculopathy posterior lateral thigh, outside of the right foot. Function-with walking 10 minutes to left lower extremity comes painful numb and weak, Continuing progressive increasing pain numbness and weakness. Rather than improving pain numbness and weakness. Symptoms progressing rather than improving. Treatment-nonsteroidals, epidural cortisone injection, physical therapy exercises-no significant improvement IMAGING STUDIES MRI scan-showing a herniation at the L5-S1, resulting with severe nerve root compression right side, L5-S1, nerve root compression on the right side RECOMMENDATION: Patient certainly can tell me patient cannot live with the symptoms and patient would like to have this fixed. I think patient is going to require is a lumbar laminectomy at the L5-S1 level, right side, with discectomy. Great care will be taken, to minimize soft tissue injury, not violate the facet joints, they're very gentle on the nerve roots. And carefully removed all free disc material. Risks have been extensively been reviewed with the patient. This was again reviewed with patient today and consent was obtained. RISKS Risks were extensively reviewed reviewed with the patient alternative treatments. Informed consent given. Nerve damage-analyzed with magnification. CSF leakage-minimize with careful retraction, protection of the dura, magnification. Infection-sterile technique, antibiotics, sterile prep Repeat surgery-minimize, with avoidance of violation of the disc, and minimizing damage to the facet joints. Getting adequate decompression above and below the disc confirmed with x-ray at time of surgery Neuropathic pain-minimize with magnification, and gentle manipulation of tissues Bleeding-meticulous hemostasis. Loss of function-minimize with immediate rehabilitation. All the above reviewed not limited, but including all of the above COMORBIDITIES Anxiety disorder Sleep disorder Chronic back pain Bipolar disorder GERD Hypertension PT ST Supraventricular tachycardia Stable Dheig-Imspyjrhi-Egmfw. PATIENT QUALITY REPORTING SERVICES Timeout Antibiotics wabhbd-idsjt-zrdwyrqscf cephalosporin Antibiotics administered less than 1 hour before surgery Antibiotics-discontinued postop within 24 hours Catheter-not used. DVT prophylaxis. Tobacco cessation-making certain no tobacco products will be used. DESCRIPTION OF PROCEDURE: Surgical site was marked on the skin. Patient was brought into the operating room. General anesthesia. DVT protocol. The patient then very gently transferred onto the OR table. Pressure areas carefully padded. 2 plane fluoroscopy was brought in, marking on the skin the surgery site. Washing prep. Sterile draping. Timeout. With 4.2 magnification, central incision was made overlying the L5-S1 level. Symptomatic side. Very carefully, dissection the skin and subcutaneous tissue identification spinous processes 5 spinous processes S1. Dissecting down the midline, carefully retracting the muscles off the spinous processes of 5 spinous process of S1. The gently retracting this laterally to the level of the facet. The self retainer was placed, Adan type. X-ray was again taken confirmation of the correct level. Very careful dissection through the midline, confirm confirmation of the correct level, with fluoroscopy. Carefully dissecting through subcutaneous tissue, coming down onto the fascia. X-ray taken confirming at the correct level, and then carefully incising the fascia. Carefully retracting the muscle in a lateral direction, coming down onto the lamina, x-ray taken again confirming that we are on lamina L5. Carrying this caudally identify the ligamentum flavum and the S1 lamina. Confirmation with x-ray. Laminectomy of the inferior portion of L5 was performed on the symptomatic side as a laminectomy of the superior portion of S1. This is performed with a high-speed bur, angled curettes, high-speed bur, 2 mm Kerrisons, and 3 mm Kerrisons. Very carefully doing a window laminectomy involving inferior L5 superior S1. Carrying this inferiorly, as well as identification of the S1 nerve root is required to fully decompress the symptomatic nerve root. The ligamentum flavum was carefully resected, carefully protecting the dura. Meticulous hemostasis. Then very gently, identification of the traversing and exiting nerve root. The traversing nerve root was then very carefully retracted in a medial direction, palpation of the disc herniation. Identification of the scarring along the lateral margin of the nerve root, carefully releasing this up. Confirmation with x-ray. Identification of S1 nerve root carefully retracting this to the midline to identify the herniated disc area the herniation was very tense, and protruded through the posterior longitudinal ligament and through the annulus, with an inferiorly migrated fragment. With a small liane, carefully protecting the S1 nerve root, and the exiting nerve root. Meticulous hemostasis. Through this incision, the large herniated fragment inferiorly migrated fragment, which is underneath the S1 nerve root was carefully removed. This fragment was multiple hard fragments, of disc material, cartilaginous material, endplate. There were several fragments. Reaching across to the midline, and underneath the nerve root, above and below the disc. Confirmation with x-ray Using the tiny pituitaries. Then, reaching into the disc, removing small any loose disc material. Subsequent reaching into the disc with the straightahead pituitaries and angled pituitaries to remove any loose disc material. The nerve root was carefully inspected as was the dura, there is no evidence of any CSF leakage or any evidence of any nerve damage. With the nerve was allowed to drop back on its bed, there are still compression with the overlap hanging lateral recess. The nerve was gently retracted in a medial direction, and then doing a foraminotomy, and lateral release recess decompression, with the 2 mm Kerrisons, decompression of the nerve root. Approximately 5 mg of Depo management that was placed only on the surface of the nerve root and no wear else. Rico thrombin and meticulous hemostasis, placed on the bed only, not placing any of this onto the nerve root or the dura. Closure-closure performed, with the deep tissues repaired with number Vicryl subcutaneous tissue with 2-0 Vicryl, skin with zaira, and Dermabond, followed by an antibiotic dressing. The patient of the gently awakened, gently transferred onto the postoperative stretcher to recovery room. The patient is recovered, doing well, and ambulatory safe may be discharged home. If the patient is having any type of medical concerns, I may elect to keep the patient overnight or longer. At this point we do not see that to be necessary. Sincerely-Dr. Charanjit Sotelo M.D. April 29, 2022 Charanjit Sotelo M.D. documented in this encounter Plan of Treatment Not on file documented as of this encounter Visit Diagnoses Not on filedocumented in this encounter
--- OUTSIDE RECORDS SUMMARY | 2025-03-17 21:50 | XMS_ITS | Encounter Summary ---
Author Organization [employer] Address [address] [place] [address] Care Team Providers Care Digital Artist Name Role Phone Unavailable Primary Care Provider Unavailabl e Encounter Details Date Type Department Care Team (Late st Contact Info) Description 04/26/2022 Transcribed Document [facility] [place] Family Medicine [address] [place] [address] ProviderSegundo MD [address] [place] [address] Social History Tobacco Use Types Packs/Day Years [...] Conversion Note - Historical ProviderMD - 04/26/2022 3:16 PM CDT Meds to Bed Enrollment Entered On: 04/26/2022 15:16 EDT Performed On: 04/26/2022 15:16 EDT by Beverly Kee RN Meds to Bed Enrollment Patient Enrollment Decision: : Yes/enroll in meds to bed program Meds to Beds Comment : Sx date 04/29/22 Beverly Kee RN - 04/26/2022 15:16 EDT documented in this encounter Plan of Treatment Not on file documented as of this encounter Visit Diagnoses Not on filedocumented in this encounter
--- OUTSIDE RECORDS SUMMARY | 2025-03-17 21:50 | XMS_ITS | Encounter Summary ---
Author Organization [employer] Address [address] [facility] [place] [address] Care Team Providers Care Steam Meter Reader Name Role Phone Unavailable Primary Care Provider Unavailabl e Encounter Details Date Type Department Care Team (Late st Contact Info) Description 04/29/2022 Transcribed Document [facility] [place] Family Medicine [address] [place] [address] ProviderSegundo MD [address] [place] [id number] Social History Tobacco Use Types Packs/Day Years [...] Conversion Note - Historical Provider, - 04/29/2022 3:48 PM CDT Event Note Entered On: 04/29/2022 15:54 EDT Performed On: 04/29/2022 15:48 EDT by Edna Lowe Rn Event Note Event Date/Time : 04/29/2022 15:43 EDT Event Location : Other: post op Event Details : Nursing assessment additional narrative Description of Event : Pt has voided, ambulated slowly to bathroom, case mgt notified of need for walker for safety. Walker delivered. Pt alert and oriented discharged home with significant other. 2 aquacel dsgs given, with DC instructions Edna Lowe Rn - 04/29/2022 15:48 EDT documented in this encounter Plan of Treatment Not on file documented as of this encounter Visit Diagnoses Not on filedocumented in this encounter
--- OUTSIDE RECORDS SUMMARY | 2025-03-17 21:50 | XMS_ITS | Encounter Summary ---
Author Organization [employer] Address [address] [place] [address] Care Team Providers Care Cigar Bander Hand Name Role Phone Unavailable Primary Care Provider Unavailabl e Encounter Details Date Type Department Care Team (Late st Contact Info) Description 04/29/2022 Transcribed Document [facility] [place] [address] [place] [address] ProviderSegundo MD [facility] [place] [place] [address] Social History Tobacco Use Types Packs/Day [...] Provider, - 04/29/2022 12:46 PM CDT [facility] Main OR PreOp Summary Primary Physician: CHARANJIT SOTELO MD-ORT Finalized Date/Time: 04/29/22 13:47:03 Pt. Name: VEENA SHELTON /Sex: 1985 Female Med Rec #: [id number] Physician: CHARANJIT SOTELO MD-ORT Financial #: [id number] Pt. Type: O Room/Bed: [facility]/ Admit/Disch: 04/29/22 05:15:00 - Institution: [facility] PreOp Case Times Entry 1 In Preop 04/29/22 11:27:00 Ready for Holding n/a Room Patient Ready for 04/29/22 11:45:00 Surgery Patient Out of Preop 04/29/22 12:20:00 Patient Out of n/a Holding Room Last Modified By: MARIA INES BENJAMIN RN 04/29/22 13:47:00 [facility] PreOp Case Times Audit 04/29/22 13:47:00 Supervisor Dairy Sanitation: NÉSTOR Modifier: NÉSTOR <+> 1 Patient Out of Preop Finalized By: MARIA INES BENJAMIN, RN Document Signatures Signed By: MARIA INES BENJAMIN RN 04/29/22 13:47 Electronically signed by [facility] Conversion Grocery Checker Cerner at 01/29/2023 5:08 PM CDT documented in this encounter Plan of Treatment Not on file documented as of this encounter Visit Diagnoses Not on filedocumented in this encounter
--- OUTSIDE RECORDS SUMMARY | 2025-03-17 21:50 | XMS_ITS | Encounter Summary ---
Author Organization [employer] Address [address] [place] [address] Care Team Providers Care It Training Specialist Name Role Phone Unavailable Primary Care Provider Unavailabl e Encounter Details Date Type Department Care Team (Late st Contact Info) Description 04/26/2022 Transcribed Document [facility] [address] [place] [address] ProviderSegundo MD [address] [place] [id number] Social History Tobacco Use Types Packs/Day [...] Conversion Note - Historical ProviderMD - 04/26/2022 1:04 PM CDT Patient: VEENA SHELTON Age: 36 Years Sex: Female : 1985 Chief Complaint Low back pain Primary Care Provider JOHNNY MONDRAGON (REF)MD-[facility] History of Present Illness 36 year old female with PMH of anxiety, chronic back pain, bipolar disorder, GERD, HTN, PTSD, SVT, WPW who presents with low back pain with LLE radiculopathy. Pt denies any weakness. The pain has been ongoing for 2 years and continues to progressively worsen. Pain described as a constant aching pain that is worse with movement. It is now to the point that it is affecting ADLs and overall quality of life. Patient has tried Tylenol and activity modification without relief of pain. Patient has not fallen. Pt has not used an assistive device. Pt saw Dr. Lockstadt and was determined to have severe DDD of the lumbar spine. Pt was offered a right L5-S1 laminectomy/discectomy and agreed to the procedure. Pt denies any history of DVT/PE , MIKY or COPD. Pt denies any problems with anesthesia in the past. Review of Systems Constitutional: No fevers, chills, sweats Eye: No recent visual problems, eye discharge, eye pain, redness HEENT: No ear pain, nasal congestion, sore throat, voice changes Respiratory: No shortness of breath, cough, pain on breathing, sputum production Cardiovascular: No Chest pain, palpitations, syncope, shortness of breath while laying flat Gastrointestinal: No nausea, vomiting, diarrhea, constipation Genitourinary: No hematuria, dysuria, incontinence, lesions on genitalia Ulises/Lymph: Negative for bruising tendency, swollen lymph glands, nosebleeds, history of anticoagulation Endocrine: Negative for excessive thirst, excessive hunger, excessive urination, heat or cold intolerance Musculoskeletal: Positive for low back pain. Integumentary: No rash, pruritus, abrasions, lesions Neurologic: No weakness, numbness, frequent headaches, tremors, blackouts Psychiatric: No anxiety, depression, mood changes, hallucinations Vital Signs T: 37.1 ??C HR: 77(Peripheral) RR: 18 BP: 111/63 SpO2: 98% HT: 162.56 cm WT: 56.36 kg BMI: 21.3 Oxygen Settings (Last) Oxygen Therapy Mode: Room air (04/26/22 15:22:00) Physical Exam General: Alert and oriented, well nourished, no acute distress. Neurologic: Awake, alert, and oriented X3, CN II-XII intact. Eye: PERRL, EOMI, normal conjuctiva. HENT: Normocephalic, clear tympanic membranes, normal hearing, moist oral mucosa, no scleral icterus, no sinus tenderness. Neck: Supple, non-tender, no carotid bruits, no JVD, no lymphadenopathy. Lungs: Clear to auscultation and percussion, non-labored respiration. Heart: Normal rate, regular rhythm, no murmur, gallop or edema. Abdomen: Soft, non-tender, non-distended, normal bowel sounds, no masses. Musculoskeletal: Decreased ROM L-spine. Normal sensation. 2+ DP/PT pulses. Skin: Skin is warm, dry and pink, no rashes or lesions. Psychiatric: Cooperative, appropriate mood and affect. Assessment/Plan 1. Pre op exam - Pt has no active cardiac conditions and no clinical risk factors. Patient with METs 4-10. RCRI score = 0, which indicates a 0.4% chance of a major cardiac event during surgery. Pt is low risk for intermediate risk surgery (orthopedic surgery). EKG shows NSR. No further cardiac testing recommended prior to surgery. Patient is medically optimized at this point. Pt should proceed with surgery as scheduled on 04/29/22 with . 2. DDD lumbar spine - proceed with surgery as above. 3. Anxiety - continue home alprazolam and seroquel. 4. PTSD - continue home depakote. 5. HTN - continue home bisoprolol /6. Positive MRSA nasal screening - Pt notified 04/28. Prescription for Bactroban called into her pharmacy. Problem List/Past Medical History Ongoing Anxiety At risk for sleep apnea Back pain Bipolar 1 disorder GERD (gastroesophageal reflux disease) HTN (hypertension) PTSD (post-traumatic stress disorder) SVT (supraventricular tachycardia) WPW (Mjlpc-Altefzktq-Gujoz syndrome) Procedure/Surgical History Cardiac ablation using fluoroscopy guidance, EGD - Esophagogastroduodenoscopy, Tubal ligation. Home Medications (8) Active ALPRAZolam 0.5 mg, Oral, TID bisoprolol 5 mg, Oral, At Bedtime Depakote 500 mg, Oral, At Bedtime Depakote 250 mg, Oral, Daily ergocalciferol 50 mcg (2000 intl units) oral capsule 50 mcg = 1 Cap, Oral, Daily [place] 7.5 mg-325 mg oral tablet 1 Tab, PRN, Oral, Q6H omeprazole 20 mg, Oral, At Bedtime SEROquel 500 mg, Oral, At Bedtime Allergies Demerol (unknown reaction) Uncoded Allergy (See Comment) (Tachycardia) Social History Alcohol Alcohol Use History No. Substance Abuse Drug Use Hx: No. Tobacco 10 or more cigarettes (1/2 pack or more)/day in last 30 days Smoking Status. Never Smokeless Tobacco Status. Packs/Tins Daily: 1. Last Used: 22 years. Family History Mother with PMH of COPD, DMII. Father with PMH of [place]. . Immunizations COVID and Flu are NUTD Diagnostic Results EKG showed NSR, rate 80 bpm CXR showed no active cardiopulmonary disease Lab Results Blood Gases (Current Encounter/Past 24 Hours) No Blood Gas Results Found (Past 24 Hours) Electrolytes(BMP) Results (Current Encounter/Past 24 Hours) Sodium Level 139 mmol/L 04/26/2022 16:12 Potassium Level 4.3 mmol/L 04/26/2022 16:12 Chloride Level 107 mmol/L 04/26/2022 16:12 Carbon Dioxide Level 24 mmol/L 04/26/2022 16:12 Anion Gap 12 04/26/2022 16:12 Blood Urea Nitrogen 4 mg/dL LOW 04/26/2022 16:12 Glucose Level 97 mg/dL 04/26/2022 16:12 Calcium Level 8.8 mg/dL 04/26/2022 16:12 Creatinine Level 0.68 mg/dL 04/26/2022 16:12 Cardiac Markers (Current Encounter/Past 24 Hours) No Cardiac Marker Results Found (Past 24 Hours) CBC Results (Current Encounter/Past 24 Hours) WBC 6.8 K/uL 04/26/2022 15:58 Hct 40.7 % 04/26/2022 15:58 Hgb 13.9 Gram/dL 04/26/2022 15:58 Platelet Count 267 K/uL 04/26/2022 15:58 CMP Results (Current Encounter/Past 24 Hours) Globulin 3.3 Gram/dL 04/26/2022 16:12 Bun/Creatinine 5.9 LOW 04/26/2022 16:12 Protein Total 6.9 Gram/dL 04/26/2022 16:12 Creatinine Level 0.68 mg/dL 04/26/2022 16:12 A/G Ratio 1.1 04/26/2022 16:12 eGFR NonAfrican >60 mL/min/1.73m2 04/26/2022 16:12 eGFR >60 mL/min/1.73m2 04/26/2022 16:12 Sodium Level 139 mmol/L 04/26/2022 16:12 Potassium Level 4.3 mmol/L 04/26/2022 16:12 Chloride Level 107 mmol/L 04/26/2022 16:12 Carbon Dioxide Level 24 mmol/L 04/26/2022 16:12 Anion Gap 12 04/26/2022 16:12 Alk Phos 57 Units/Liter 04/26/2022 16:12 ALT 12 Units/Liter 04/26/2022 16:12 AST 15 Units/Liter 04/26/2022 16:12 Blood Urea Nitrogen 4 mg/dL LOW 04/26/2022 16:12 Glucose Level 97 mg/dL 04/26/2022 16:12 Albumin Level 3.6 Gram/dL 04/26/2022 16:12 Bilirubin Total 0.5 mg/dL 04/26/2022 16:12 Calcium Level 8.8 mg/dL 04/26/2022 16:12 Coagulation Results (Current Encounter/Past 24 Hours) PT 9.9 Second(s) 04/26/2022 16:34 PTT 29.2 Second(s) 04/26/2022 16:34 INR 1.0 04/26/2022 16:34 Creatinine Clearance (Current Encounter/Past 24 Hours) Creatinine Level 0.68 mg/dL 04/26/2022 16:12 Bun/Creatinine 5.9 LOW 04/26/2022 16:12 Estimated Creatinine Clearance 100.66 mL/Min 04/26/2022 16:12 MRSA screening positive Fructosamine 222 Prealbumin 21.9 Vitamin d 27.2 documented in this encounter Plan of Treatment Not on file documented as of this encounter Visit Diagnoses Not on filedocumented in this encounter
--- OUTSIDE RECORDS SUMMARY | 2025-03-17 21:50 | XMS_ITS | Clinical Summary ---
Author Organization [employer] Address [address] [place] [address] Care Team Providers Care Automotive Lot Attendant Name Role Phone Unavailable Primary Care Provider [...]
--- OUTSIDE RECORDS SUMMARY | 2025-03-17 21:50 | XMS_ITS | Encounter Summary ---
Author Organization [employer] Address [address] [place] [address] Care Team Providers Care Submarine Operator Name Role Phone Unavailable Primary Care Provider Unavailabl e Encounter Details Date Type Department Care Team (Late st Contact Info) Description 03/03/2022 Transcribed Document [facility] [place] Medicine [facility] [place] [address] ProviderSegundo MD [address] [place] [id number] Social History Tobacco Use Types Packs/Day [...] Cerner Conversion Note - Historical ProviderMD - 03/03/2022 10:00 AM CDT Patient: VEENA NAILS Age: 36 Years Sex: Female : 1985 Chief Complaint Low back pain Primary Care Provider JOHNNY MONDRAGON (REF)MD-[facility] History of Present Illness This patient is a pleasant 36 yo WF who presents with low back pain. The pain has been going on for 2 years but is getting progressively worse. She describes it as a sharp and aching/throbbing pain. It is now to the point that it is affecting her ADLs. She has tried NSAIDs without relief of her pain. She has not fallen. She has not used an assistive device. She saw Dr. Sotelo who evaluated her and offered a Right L5-S1 Laminectomy/Discectomy and agreed to the procedure. Pt denies a h/o DVT/PE. No trouble with anesthesia in the past. Pt denies h/o COPD/Asthma/MIKY. Review of Systems Constitutional: Neg for fevers or chills. Eyes: Neg for blurry vision or change in vision. ENT: Neg for sore throat, ear pain, or dizziness. Cardiac: Neg for chest pain or dyspnea on exertion. Respiratory: Neg for shortness of breath. Gastrointestinal: Neg for nausea, vomiting, diarrhea, or constipation. Musculoskeletal: Pos for low back pain. Neurologic: Neg for headaches or seizures. Psychiatric: Neg for anxiety and depression. Integumentary: Neg for rash. Vital Signs BP 123/75 O2 98% on RA, HR 92, Temp 98.3, RR 18 Physical Exam Constitutional: Alert and oriented, pleasant, in no acute distress. HEENT: Normocephalic, atraumatic. EOMI. Conjunctiva pink without exudate. Oropharynx pink and moist. Neck supple. Cardiac: RRR. No M/R/G. Respiratory: Lungs CTA bilaterally. Nonlabored breathing. Abdomen: Soft, nontender, nondistended. Musculoskeletal: Low back pain. Integumentary: Skin is pink, warm and dry. No rashes. Neurologic: CN II-XII grossly intact. Psychiatric: Judgment and affect appropriate. Assessment/Plan 1. Preoperative evaluation - Pt underwent preoperative laboratory workup and diagnostic studies. RCRI - Class I risk, 3.9%. 2. MVP - patient has received cardiac clearance from [facility] Cardiology/Liat Cole APRN who states she is at a low and acceptable risk from cardiovascular standpoint. 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 4. Bipolar disorder - continue Depakote and Seroquel. 5. HTN - continue bisoprolol. 6. PTSD and anxiety - continue alprazolam. 7. GERD - continue omeprazole. 8. Vit D deficiency - Vit D level 16.7. Rx sent for 2000 IU oral Vit d supplementation daily and follow up with PCP in 30 days for repeat Vit D level. 9. Leukocytosis - WBC 13.5. No obvious or voiced symptoms of infectious process. CBC, UA, and CXR pending (will be done at [facility]). Discussed with Dr. Sotelo's office, surgery for 03/09 cancelled and moved to 03/15. If imaging and labs are negative, will proceed with surgery. -------- PATIENT WAS NONCOMPLIANT ON GETTING HER REPEAT LABS AND IMAGING. ---- DISCUSSED WITH DR. SOTELO'S OFFICE, SURGERY CANCELLED AND WILL NOT BE RESCHEDULED UNTIL PATIENT COMPLIES WITH REPEAT IMAGING AND LABS. 10. Low back pain - PENDING surgery with Dr. Sotelo on 03/15/2022. Problem List/Past Medical History Ongoing Anxiety Back pain Bipolar 1 disorder GERD (gastroesophageal reflux disease) HTN (hypertension) PTSD (post-traumatic stress disorder) WPW (Mpkzx-Nlparytiy-Vqyxg syndrome) MVP Procedure/Surgical History Cardiac ablation using fluoroscopy guidance, EGD - Esophagogastroduodenoscopy, Tubal ligation. Home Medications (7) Active ALPRAZolam 0.5 mg, Oral, TID bisoprolol 5 mg, Oral, At Bedtime Depakote 500 mg, Oral, At Bedtime Depakote 250 mg, Oral, Daily [place] 7.5 mg-325 mg oral tablet 1 Tab, PRN, Oral, Q6H omeprazole 20 mg, Oral, At Bedtime SEROquel 500 mg, Oral, At Bedtime Allergies Demerol (unknown reaction) Social History Alcohol Alcohol Use History No. Substance Abuse Drug Use Hx: No. Tobacco 10 or more cigarettes (1/2 pack or more)/day in last 30 days Smoking Status. Never Smokeless Tobacco Status. Packs/Tins Daily: 1. Last Used: 22 years. Family History Mother - Alive with hx of COPD/Asthma Father - Passed at age 52 from cardiac arrest Diagnostic Results EKG - NSR, VR 80 CXR - pending Lab Results UA pending WBCs - 13.5 Hbg - 4.60 Hct - 43.3 Plts - 270 Glu - 104 Na - 139 K - 4.6 BUN - 7 Cr - 0.73 GFR - >60 Albumin - 3.6 Prealbumin - 23.7 PT - 9.8 INR - 0.9 PTT - 29.9 A1C - 5.10 Fructosamine - 217 Vit D - 16.7 MRSA (nasal) - pending Nicotine - pending Cotinine - pending Electronically signed by Mark, [facility] Conversion Human Resources Intern Cerner at 01/29/2023 5:06 PM CDT documented in this encounter Plan of Treatment Not on file documented as of this encounter Visit Diagnoses Not on filedocumented in this encounter
--- OUTSIDE RECORDS SUMMARY | 2025-03-17 21:50 | XMS_ITS | Encounter Summary ---
Author Organization [employer] Address [address] [place] [address] Care Team Providers Care Donor Relations Officer Name Role Phone Unavailable Primary Care Provider Unavailabl e Encounter Details Date Type Department Care Team (Late st Contact Info) Description 03/03/2022 Transcribed Document [facility] [place] Family Medicine [address] [place] [address] ProviderSegundo MD [address] [place] [address] Social History Tobacco Use Types Packs/Day [...] Conversion Note - Historical ProviderMD - 03/03/2022 10:12 AM CDT PAT Adult Entered On: 03/03/2022 10:18 EDT Performed On: 03/03/2022 10:12 EDT by Lucy Mitchell Rn Vital Measurements Temperature Source : Tympanic Temperature Mode : Fahrenheit Temperature, Fahrenheit : 98.3 Deg F Clinical Temperature, C : 36.8 Deg C Peripheral Pulse Rate : 92 bpm Pulse Rhythm : Regular Respiratory Rate : 18 Breaths/Min Systolic Blood Pressure : 123 mmHg Diastolic Blood Pressure : 75 mmHg Oxygen Saturation : 98 % Oxygen Therapy Mode : Room air Lucy Mitchell Rn - 03/03/2022 10:12 EDT Height and Weight, Clinical Dosing Height Source : Stated Height Entry Format : [place] Height, Feet : 5 ft(Converted to: 152 cm, 60 Inch) Height, Inches : 4 Inch(Converted to: 0 ft 4 Inch, 10.16 cm) Clinical Height : 162.56 cm Weight Source : Standing scale Weight Entry Format : [place] Clinical Dosing Weight : 58.18 kg Weight, Pounds : 128 lb Body Surface Area (BSA) : 1.62 m2 Body Mass Index : 22 kg/m2 [place] Body Weight : 54 kg Lucy Mitchell Rn - 03/03/2022 10:12 EDT Health Histories Smoking Status : 10 or more cigarettes (1/2 pack or more)/day in last 30 days Smokeless Tobacco Status : Never Desires Tobacco Cessation Medication : No Reason for No Tobacco Cessation Medication : ED/procedural patient only Lucy Mitchell Rn - 03/03/2022 10:12 EDT Social History (As Of: 03/03/2022 10:18:58 EDT) Tobacco: 10 or more cigarettes (1/2 pack or more)/day in last 30 days Smoking Status. Never Smokeless Tobacco Status. Packs/Tins Daily: 1. Last Used: 22 years. (Last Updated: 03/03/2022 10:12:13 EDT by Lucy Mitchell Rn) Alcohol: Alcohol Use History No. (Last Updated: 03/03/2022 10:12:13 EDT by Lucy Mitchell Rn) Substance Abuse: Drug Use Hx: No. (Last Updated: 03/03/2022 10:12:13 EDT by Lucy Mitchell, Rn) Infectious Disease History Does patient have symptoms of COVID-19? : No Tested for COVID19 in the past 14 days : PreProcedure/NON-PUI COVID-19 Testing Does the Patient state known exposure to a COVID-19 positive case in the last 14 days? : No Patient Vaccinated for COVID-19 : Fully vaccinated Lucy Mitchell Rn - 03/03/2022 10:12 EDT Infectious Disease Risk Screening Grid Cough < 2 wks of unknown origin : NO Cough > 2 weeks : NO Blood in Sputum : NO Fever or self-reported Fever : NO Rash of unknown origin : NO Headache : NO Stiff neck : NO Night Sweats : NO Unexplained Weight Loss : NO Diarrhea (3 episode per day) : NO Lucy Mitchell Rn - 03/03/2022 10:12 EDT Patient Masked? : Yes Physical contact outside [place] in the last 30 days : No Hospitalized in Foreign Country : No Infectious Disease History : Other: Covid INF Disease TB Screening Calc : 0 INF Disease Recent Travel Calc : 0 Lucy Mitchell Rn - 03/03/2022 10:12 EDT COVID19 PreProcedure Screening Is this an Emergent or Add on Procedure? : No Date PreProcedure COVID-19 test known? : No Has patient been isolated since the test : No Exposed to COVID19 symptoms since test? : No Lucy Mitchell Rn - 03/03/2022 10:12 EDT Anesthesia/Transfusion History Family History of Anesthesia Reaction : No prior transfusion(s) Transfusion History : Prior anesthesia without reaction Family History of Anesthesia Reaction : None Lucy Mitchell Rn - 03/03/2022 10:12 EDT Functional Assessment Functional ADL Evaluation Index EBN Bathing : Independent (2) Dressing : Independent (2) Toileting : Independent (2) Transferring Bed or Chair : Independent (2) Continence : Independent (2) Feeding : Independent (2) Lucy Mitchell Rn - 03/03/2022 10:12 EDT ADL Index Score : 12 Lucy Mitchell Rn - 03/03/2022 10:12 EDT Advance Directive Patient has Advance Directive *Q : No, patient refuses Advance Directive information Lucy Mitchell Rn - 03/03/2022 10:12 EDT [place] Suicide Severity Rating Scale (C-SSRS) CSSRS Past Month Wish to be : No CSSRS Past Month Suicidal Thoughts : No CSSRS Lifetime Suicide Behavior : No Suicide Severity Rating Score : 0 Suicide Severity Rating : No Additional Care Required at this time Lucy Mitchell Rn - 03/03/2022 10:12 EDT Psychosocial History Do You Have a History of the Following? : Anxiety, Bipolar Disorder, Post Traumatic Stress Disorder Currently in Unsafe Situation : No Lucy Mitchell Rn - 03/03/2022 10:12 EDT Teaching/Learning Assessment Individuals Taught : Patient Readiness to Learn : Cooperative Readiness to Learn : Explanation, Printed materials Lucy Mitchell Rn - 03/03/2022 10:12 EDT Education Topics, Periop Preadmission Perioperative Education Grid Arrival Time/Place : Verbalizes understanding Infection Control : Verbalizes understanding NPO Status/Directions : Verbalizes understanding Preprocedure Preparations : Verbalizes understanding Preprocedure Tests/Labs : Verbalizes understanding Remove Body Piercings : Verbalizes understanding Responsible Adult : Verbalizes understanding Take/Hold Medications Pre-Procedure : Verbalizes understanding Lucy Mitchell Rn - 03/03/2022 10:12 EDT General Info Want Family/Rep/Phys Notified of Admit : No Emergency Contact #1 : Kwadwo Emergency Contact #1 Emergency Contact #1 Relationship : sig other Emergency Contact #2 : . Emergency Contact #2 Phone Number : . Emergency Contact #2 Relationship : . Primary Language : Dutch Communication Barrier : None Communication Lecturer Needed : No Lucy Mitchell Rn - 03/03/2022 10:12 EDT Ken Scale Ken Sensory Perception : No impairment Ken Moisture : Rarely moist Ken Activity : Walks frequently Ken Mobility : No limitation Ken Nutrition : Excellent Ken Friction and Shear : No apparent problem Ken Score : 23 Lucy Mitchell Rn - 03/03/2022 10:12 EDT Sleep Apnea Risk Assmt Hx of Obstructive Sleep Apnea Diagnosis : No Snore Loudly : No Tired, Fatigued, or Sleepy During Day : No Observed Stopping Breathing During Sleep : No Have/Are Being Treated for Hypertension : Yes BMI Greater Than 35 kg/m2 : No Age over 50 Years Old : No Neck Circumference Greater Than 40 cm : No Gender Male : No STOP-BANG Sleep Apnea Risk Level Score : 1 Lucy Mitchell Rn - 03/03/2022 10:12 EDT Electronically signed by Lakhwinder Flores Conversion Trimmer Operator Three Knife Cerner at 01/29/2023 5:01 PM CDT documented in this encounter Plan of Treatment Not on file documented as of this encounter Visit Diagnoses Not on filedocumented in this encounter
--- OUTSIDE RECORDS SUMMARY | 2025-03-17 21:50 | XMS_ITS | Encounter Summary ---
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 Name Role Phone Unavailable Primary Care Provider Unavailabl e Encounter Details Date Type Department Care Team (Late st Contact Info) Description 04/29/2022 Transcribed Document [facility] [place] Family Medicine [address] [place] [address] ProviderSegundo MD [address] [place] [id number] Social History Tobacco Use Types Packs/Day [...] Conversion Note - Historical Provider, - 04/29/2022 2:49 [place] [address] VEENA SHELTON :1985 Visit Time:04/29/2022 What to do next Instructions From Your Care Team Discharge Follow Up Instructions: Follow-up in my office, 12-14 days.Prescription.-Check intake sheet from my office for follow-up date and appointment time Activity: Reynolds dressing. Do not remove. May shower with dressing on. She is 1 dressings comes off, cleaned with peroxide, triple antibiotic ointment and new dressing., Discharge Activity: No strenuous activities, Order Comment: Sitting, standing, walking, is fine. Minimize repetitive bending and twisting. May drive vehicle when legs feel normal, and no longer taking medication. And medically stable. Make sure patient has voided is medically stable prior to discharge Diet: Discharge Diet: Regular diet as tolerated Wound/Incision Care Instructions: With Aquasol dressing, patient may shower daily, using antibiotic soap, such as Dial. Dressing change prior to discharge when necessary with Aquasol. Follow-Up Appointments Follow Up with CHARANJIT SOTELO When 05/12/2022 02:15 PM EDT Where: [address] [place] [address] [address] [place] [address]- Business (1) Medications What How Much When Instructions Next Dose acetaminophen-oxyCODONE (Percocet 7.5/ 325 oral tablet) 2 Tablet(s) Oral Three Times A Day as needed for for pain Pickup at [facility] acetaminophen-hydrocodone ([place] 7.5 mg-325 mg oral tablet) 1 Tablet(s) Oral Every 6 Hours as needed for as needed for pain ALPRAZolam 0.5 Milligram(s) Oral Three Times A Day bisoprolol 5 Milligram(s) Oral At Bedtime divalproex sodium (Depakote) 500 Milligram(s) Oral At Bedtime divalproex sodium (Depakote) 250 Milligram(s) Oral Every Day ergocalciferol (ergocalciferol 50 mcg (2000 intl units) oral capsule) 1 Capsule(s) Oral Every Day Duration: 14 Day(s) mupirocin topical (Bactroban 2% topical ointment) 1 Application(s) Topical Three Times A Day Pickup at [facility] omeprazole 20 Milligram(s) Oral At Bedtime QUEtiapine (SEROquel) 500 Milligram(s) Oral At Bedtime Pharmacy Information [facility] [address] [place] [address] [phone] Take your medications faithfully. Do NOT skip medication. Do NOT stop taking medications without the direction of a physician. Carry a list of your medications with you at all times, and take this medication list with you to your first follow up visit. Report any side effects. Avoid herbal remedies unless discussed with your physician. As part of your treatment plan, your physician may have prescribed a limited course of a controlled substance. This medication may be given to help people with moderate or severe pain or for other medical conditions, but there are risks involved with treatment. Common side effects may include nausea, constipation, drowsiness, sweating, itching, dry mouth, and rash. More serious side effects may include cognitive and motor impairment, like problems with thinking, concentrating, alertness, and movement (e.g. slowed reflexes), and driving and operating heavy machinery can be dangerous. It is important for you to talk to your physician if you have these side effects or questions. These controlled substances can produce physical dependence and be habit-forming if taken for an extended period of time, which means that the body has gotten used to them and may experience withdrawal symptoms if they are abruptly stopped. Withdrawal symptoms can include runny nose, sweating, goose bumps, diarrhea, abdominal cramping, rapid heartbeat, difficulty sleeping, and nervousness. Please dispose of unused and medications per pharmacy guidance. Education Materials How to Use a Walker This sheet [...] health care provider approves. Standard walker 1. 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 Do not slide your [...] provider. Document Revised: 11/25/2020 Document Reviewed: 08/21/2019 [employer] Patient Education ?? 2020 [employer] Surgical Spinal Decompression Spinal decompression is a [...] including vitamins, herbs, eye drops, creams, and nlxm-ayy-narvecf medicines. ??? Any problems you or family [...] Up to 2 hours before the procedure ??? you may continue to drink clear liquids, such as water, clear fruit juice, black coffee, and plain tea. Eating and drinking restrictions Follow instructions from your health care provider about eating and drinking, which may include: ??? 8 hours before the procedure ??? stop eating heavy meals or foods, such as meat, fried foods, or fatty foods. ??? 6 hours before the procedure ??? stop eating light meals or foods, such as toast or cereal. ??? 6 hours before the procedure ??? stop drinking milk or drinks that contain milk. ??? 2 hours before the procedure ??? stop drinking clear liquids. Medicines Ask your health care provider about: ??? Changing or stopping your regular medicines. This is especially important if you are taking diabetes medicines or blood thinners. ??? Taking medicines such as aspirin and ibuprofen. These medicines can thin your blood. Do not take these medicines unless your health care provider tells you to take them. ??? Taking yfxj-ecb-skpgzlg medicines, vitamins, herbs, and supplements. Surgery safety [...] incision. The drain will be removed within 1???2 days. ??? A bandage (dressing) will be [...] provider. Document Revised: 01/13/2021 Document Reviewed: 01/13/2021 [employer] Patient Education ?? 2020 [employer] Lumbar Diskectomy, Care After This sheet [...] these instructions at home: Medicines ??? Take rkmr-kdq-mxshuiw and prescription medicines as told by your [...] keep your urine pale yellow. ? Take dtxh-epq-jvcazlr or prescription medicines. ? Eat foods that [...] and water are not available, use hand forming machine adjuster. ? Change your dressing as told by [...] Get up to take short walks every 1???2 hours. This is important to improve blood [...] safe to drive. General instructions ??? Take kjrx-tpg-ltzfijj and prescription medicines only as told by [...] provider. Document Revised: 01/13/2021 Document Reviewed: 01/13/2021 [employer] Patient Education ?? 2020 [employer]. General Anesthesia, Adult, Care After This sheet [...] activities are safe for you. ??? Take rjrs-jal-ttaygsy and prescription medicines only as told by [...] provider. Document Revised: 06/10/2021 Document Reviewed: 01/07/2021 [employer] Patient Education ?? 2020 [employer]. acetaminophen and oxycodone (a SEET a MIN oh fen and OX i KOE done) Endocet 10/325, Endocet 2.5/325, Endocet 5/325, Endocet 7.5/325, Nalocet, Percocet, Primlev What is the most important information I should know about acetaminophen and oxycodone? MISUSE OF OPIOID MEDICINE CAN CAUSE ADDICTION, OVERDOSE, OR . Keep the medication in a place where others cannot get to it. Taking opioid medicine during may cause life-threatening withdrawal symptoms in the . Fatal side effects can occur if you use opioid medicine with alcohol, or with other drugs that cause drowsiness or slow your breathing. Stop taking this medicine and call your doctor right away if you have skin redness or a rash that spreads and causes blistering and peeling. What is acetaminophen and oxycodone? Acetaminophen and oxycodone is a combination medicine used to relieve moderate to severe pain. Acetaminophen and oxycodone contains an opioide medicine and may be habit-forming. Acetaminophen and oxycodone may also be used for purposes not listed in this medication guide. What should I discuss with my healthcare provider before taking acetaminophen and oxycodone? You should not use this medicine if you are allergic to acetaminophen or oxycodone, or if you have: ?? severe asthma or breathing problems; or ?? a blockage in your stomach or intestines. Tell your doctor if you have ever had: ?? breathing problems, sleep apnea; ?? liver disease; ?? a drug or alcohol addiction; ?? kidney disease; ?? a head injury or seizures; ?? urination problems; or ?? problems with your thyroid, pancreas, or gallbladder. If you use opioid medicine while you are , your baby could become dependent on the drug. This can cause life-threatening withdrawal symptoms in the baby after it is born. Babies born dependent on opioids may need medical treatment for several weeks. Ask a doctor before using opioid medicine if you are . Tell your doctor if you notice severe drowsiness or slow breathing in the nursing baby. How should I take acetaminophen and oxycodone? Follow all directions on your prescription label. Never take this medicine in larger amounts, or for longer than prescribed. An overdose can damage your liver or cause . Tell your doctor if you feel an increased urge to use more of this medicine. Never share opioid medicine with another person, especially someone with a history of drug abuse or addiction. MISUSE CAN CAUSE ADDICTION, OVERDOSE, OR . Keep the medicine in a place where others cannot get to it. Selling or giving away opioid medicine is against the law. Measure liquid medicine carefully. Use the dosing syringe provided, or use a medicine dose-measuring device (not a kitchen spoon). If you need surgery or medical tests, tell the doctor ahead of time that you are using this medicine. You should not stop using this medicine suddenly. Follow your doctor's instructions about tapering your dose. Store at room temperature away from moisture and heat. Keep track of your medicine. You should be aware if anyone is using it improperly or without a prescription. Do not keep leftover opioid medication. Just one dose can cause in someone using this medicine accidentally or improperly. Ask your pharmacist where to locate a drug take-back disposal program. If there is no take-back program, flush the unused medicine down the toilet. What happens if I miss a dose? Since this medicine is used for pain, you are not likely to miss a dose. Skip any missed dose if it is almost time for your next dose. Do not use two doses at one time. What happens if I overdose? Seek emergency medical attention or call the Poison Help line at . An overdose of this medicine can be fatal, especially in a child or other person using the medicine without a prescription. Overdose symptoms may include nausea, vomiting, sweating, severe drowsiness, pinpoint pupils, slow breathing, or no breathing. Your doctor may recommend you get naloxone (a medicine to reverse an opioid overdose) and keep it with you at all times. A person caring for you can give the naloxone if you stop breathing or don't wake up. Your caregiver must still get emergency medical help and may need to perform CPR (cardiopulmonary resuscitation) on you while waiting for help to arrive. Anyone can buy naloxone from a pharmacy or local health department. Make sure any person caring for you knows where you keep naloxone and how to use it. What should I avoid while taking acetaminophen and oxycodone? Avoid driving or operating machinery until you know how this medicine will affect you. Dizziness or drowsiness can cause falls, accidents, or severe injuries. Do not drink alcohol. Dangerous side effects or could occur. Ask a doctor or pharmacist before using any other medicine that may contain acetaminophen (sometimes abbreviated as APAP). Taking certain medications together can lead to a fatal overdose. What are the possible side effects of acetaminophen and oxycodone? Get emergency medical help if you have signs of an allergic reaction: hives; difficulty breathing; swelling of your face, lips, tongue, or throat. Opioid medicine can slow or stop your breathing, and may occur. A person caring for you should give naloxone and/or seek emergency medical attention if you have slow breathing with long pauses, blue colored lips, or if you are hard to wake up. In rare cases, acetaminophen may cause a severe skin reaction that can be fatal. This could occur even if you have taken acetaminophen in the past and had no reaction. Stop taking this medicine and call your doctor right away if you have skin redness or a rash that spreads and causes blistering and peeling. Call your doctor at once if you have: ?? noisy breathing, sighing, shallow breathing, breathing that stops; ?? a light-headed feeling, like you might pass out; ?? weakness, tiredness, fever, unusual bruising or bleeding; ?? confusion, unusual thoughts or behavior; ?? problems with urination; ?? liver problems--nausea, upper stomach pain, tiredness, loss of appetite, dark urine, queenie-colored stools, jaundice (yellowing of the skin or eyes); ?? low cortisol levels-- nausea, vomiting, loss of appetite, dizziness, worsening tiredness or weakness; or ?? high levels of serotonin in the body--agitation, hallucinations, fever, sweating, shivering, fast heart rate, muscle stiffness, twitching, loss of coordination, nausea, vomiting, diarrhea. Serious breathing problems may be more likely in older adults and in those who are debilitated or have wasting syndrome or chronic breathing disorders. Common side effects include: ?? dizziness, drowsiness, feeling tired; ?? feelings of extreme happiness or sadness; ?? nausea, vomiting, stomach pain; ?? constipation; or ?? headache. This is not a complete list of side effects and others may occur. Call your doctor for medical advice about side effects. You may report side effects to FDA at 5-960-JZX-8184. What other drugs will affect acetaminophen and oxycodone? You may have breathing problems or withdrawal symptoms if you start or stop taking certain other medicines. Tell your doctor if you also use an antibiotic, antifungal medication, heart or blood pressure medication, seizure medication, or medicine to treat HIV or hepatitis C. Opioid medication can interact with many other drugs and cause dangerous side effects or . Be sure your doctor knows if you also use: ?? cold or allergy medicines, bronchodilator asthma/COPD medication, or a diuretic ('water pill'); ?? medicines for motion sickness, irritable bowel syndrome, or overactive bladder; ?? other opioids--opioid pain medicine or prescription cough medicine; ?? a sedative like Valium--diazepam, alprazolam, lorazepam, Xanax, Klonopin, Versed, and others; ?? drugs that make you sleepy or slow your breathing--a sleeping pill, muscle relaxer, medicine to treat mood disorders or mental illness; ?? drugs that affect serotonin levels in your body--a stimulant, or medicine for depression, Parkinson's disease, migraine headaches, serious infections, or nausea and vomiting. This list is not complete. Other drugs may affect acetaminophen and oxycodone, including prescription and ewwj-aee-viqpaqb medicines, vitamins, and herbal products. Not all possible interactions are listed here. Where can I get more information? Your doctor or pharmacist can provide more information about acetaminophen and oxycodone. Remember, keep this and all other medicines out of the reach of children, never share your medicines with others, and use this medication only for the indication prescribed. Every effort has been made to ensure that the information provided by [employer]. ('[employer]') is accurate, up-to-date, and complete, but no guarantee is made to that effect. Drug information contained herein may be time sensitive. [employer] information has been compiled for use by healthcare practitioners and consumers in the [place] and therefore [employer] does not warrant that uses outside of the [place] are appropriate, unless specifically indicated otherwise. [employer] drug information does not endorse drugs, diagnose patients or recommend therapy. [employer] drug information is an informational resource designed to assist licensed healthcare practitioners in caring for their patients and/or to serve consumers viewing this service as a supplement to, and not a substitute for, the expertise, skill, knowledge and judgment of healthcare practitioners. The absence of a warning for a given drug or drug combination in no way should be construed to indicate that the drug or drug combination is safe, effective or appropriate for any given patient. [employer] does not assume any responsibility for any aspect of healthcare administered with the aid of information [employer] provides. The information contained herein is not intended to cover all possible uses, directions, precautions, warnings, drug interactions, allergic reactions, or adverse effects. If you have questions about the drugs you are taking, check with your doctor, nurse or pharmacist. Copyright 1741-3926 [employer]. Version: 20.03. Revision Date: 11/13/2020. Emergency Awareness and Preventative Care STROKE is an EMERGENCY Every Minute Counts Act FAST and Check for these signs: FACE Does the face look uneven? ARM Does one arm drift down? SPEECH Does their speech sound strange? TIME Call at any sign of stroke Stroke Risk Factors Atrial Fibrillation (irregular heartbeat) Diabetes Family history of stroke Heart Disease Heavy alcohol use High Blood Pressure High Cholesterol Physical inactivity and obesity Smoking Cigarette Smoking The facts are clear, cigarette smoking will shorten your life. Smoking can cause many illnesses along the way. As a healthcare provider, we recommend that you stop smoking. Assistance with quitting is available by contacting 4-006-MFKDNOW. This is a free resource providing counseling, support, and referral. Or you may contact your personal physician. [employer] Suicide Prevention Lifeline: The National Suicide Prevention Lifeline is a national network of local crisis centers that provides free and confidential emotional support to people in suicidal crisis or emotional distress 24 hours a day, 7 days a week. Don't Wait! Stop a Heart Attack Before it Starts What is a heart attack? A heart attack is damage or to a part of the heart from severely decreased or lack of blood flow to the heart. Over time, arteries can become narrow from the buildup of fat and cholesterol, which is called plaque. The plaque can rupture causing a blood clot to form. When the blood clot forms, the artery can become severely narrowed or completely blocked, causing a heart attack. Heart attack is the leading cause of in the [place]. 85% of muscle damage occurs within the first 2 hours. Delay in the recognition of heart attack symptoms increases the chances of . Know the early symptoms of a heart attack: Nausea Feeling of fullness in chest Jaw Pain Pain that travels down one or both arms Fatigue/being tired Anxiety Back Pain Chest pressure, squeezing, or discomfort Shortness of breath Sweating, or a cold sweat Feeling of impending doom There are unusual signs of a heart attack, too! Women, the elderly, and diabetics may present with atypical symptoms: Fainting/dizziness Weakness Confusion Risk Factors for a Heart Attack Some heart disease risk factors, such as age and family history, cannot be changed. Others, like smoking and lack of exercise, can be changed. Smoking High Cholesterol High Blood Pressure Family History Obesity Age Gender (Males are at higher risk) Lack of Exercise Diabetes Diet Stress Excessive Alcohol Intake If you or someone you know is experiencing the signs and symptoms of a heart attack, DON???T DELAY. Call immediately and seek help. If someone collapses, perform CPR! Do not attempt to drive if you are having symptoms of heart attack. Hands-Only CPR Why Hands-Only CPR? Hands-Only CPR has been shown to be as effective as conventional CPR for cardiac arrests that occur outside of a hospital. Survival depends on immediately receiving CPR from someone nearby. How do you perform Hands-Only CPR? There are two easy steps: Call 9-1-1 if you see a teen or adult collapse Push hard and fast in the center of the chest at a beat of 100 beats per minute. Save a life! 4 WAYS TO GET AHEAD OF SEPSIS SEPSIS is a MEDICAL EMERGENCY. Time matters! Infections put you and your family at risk for a life-threatening condition called sepsis. Sepsis is the body's extreme response to an infection. It is life-threatening, and without timely treatment, sepsis can rapidly lead to tissue damage, organ failure, and . Sepsis happens when an infection you already have-in your skin, lungs, urinary tract or somewhere else-triggers a chain reaction throughout your body. 1 PREVENT INFECTIONS Take good care of chronic conditions. Talk to your doctor about getting the recommended vaccines. 2 PRACTICE GOOD HYGIENE Wash your hands frequently. Keep cuts or open sores clean and covered until they are healed. 3 KNOW THE SYMPTOMS Confusion or disorientation Shortness of breath High heart rate Fever, shivering, or feeling very cold Extreme pain or discomfort Clammy or sweaty skin 4 ACT FAST Get medical care IMMEDIATELY if you suspect sepsis or if you have an infection that is not getting better or is getting worse. To learn more about sepsis and how to prevent infections, visit www.cdc.gov/sepsis. Test Results Laboratory or Other Results This Visit (last charted value for your 04/29/2022 visit) Hematology 04/26/2022 3:20 PM WBC: 6.8 K/uL -- Normal range between ( 3.9 and 10.0 ) RBC: 4.32 Million/uL -- Normal range between ( 3.93 and 5.22 ) Hct: 40.7 % -- Normal range between ( 34.1 and 44.9 ) Hgb: 13.9 Gram/dL -- Normal range between ( 11.2 and 15.7 ) Platelet Count: 267 K/uL -- Normal range between ( 163 and 369 ) MCH: 32.2 pg -- Normal range between ( 25.6 and 32.2 ) MCHC: 34.2 Gram/dL -- Normal range between ( 32.3 and 36.5 ) MCV: 94.2 fL -- Normal range between ( 79.0 and 94.8 ) Slide Review: No Eos %: 1.2 % -- Normal range between ( 1.0 and 7.0 ) Rawlins #: 0.44 K/uL -- Normal range between ( 0.24 and 0.82 ) Eos #: 0.08 K/uL -- Normal range between ( 0.04 and 0.54 ) Rawlins %: 6.5 % -- Normal range between ( 4.7 and 12.5 ) Baso %: 0.3 % -- Normal range between ( 0.0 and 1.0 ) Baso #: 0.02 K/uL -- Normal range between ( 0.01 and 0.08 ) RDW: 13.2 % -- Normal range between ( 11.6 and 14.4 ) Neut %: 63.8 % -- Normal range between ( 34.0 and 71.0 ) Neut #: 4.31 K/uL -- Normal range between ( 1.56 and 6.13 ) Lymph %: 27.9 % -- Normal range between ( 19.3 and 53.0 ) Lymph #: 1.88 K/uL -- Normal range between ( 1.18 and 3.74 ) MPV: 9.9 fL -- Normal range between ( 9.4 and 12.4 ) IG#: 0 x10(3)/uL IG%: 0 % -- Normal range between ( 0 and 1 ) Microbiology 04/26/2022 3:20 PM MRSA Surveillance: POS General Chemistry 04/26/2022 3:20 PM Creatinine Level: 0.68 mg/dL -- Normal range between ( 0.55 and 1.02 ) Sodium Level: 139 mmol/L -- Normal range between ( 136 and 146 ) Potassium Level: 4.3 mmol/L -- Normal range between ( 3.5 and 5.1 ) Chloride Level: 107 mmol/L -- Normal range between ( 102 and 112 ) Carbon Dioxide Level: 24 mmol/L -- Normal range between ( 21 and 32 ) Anion Gap: 12 -- Normal range between ( 9 and 20 ) Bilirubin Total: 0.5 mg/dL -- Normal range between ( 0.2 and 1.3 ) Hgb A1C: 5.10 % -- Normal range between ( 4.20 and 6.30 ) A/G Ratio: 1.1 -- Normal range between ( 1.1 and 2.5 ) ALT: 12 Units/Liter -- Normal range between ( 12 and 78 ) AST: 15 Units/Liter -- Normal range between ( 5 and 37 ) Globulin: 3.3 Gram/dL -- Normal range between ( 1.5 and 4.5 ) Alk Phos: 57 Units/Liter -- Normal range between ( 27 and 136 ) eAVG Glucose: 100 mg/dL Bun/Creatinine: 5.9 -- Normal range between ( 8.0 and 20.0 ) Calcium Level: 8.8 mg/dL -- Normal range between ( 8.5 and 10.1 ) eGFR : >60 mL/min/1.73m2 eGFR NonAfrican: >60 mL/min/1.73m2 Glucose Level: 97 mg/dL -- Normal range between ( 74 and 106 ) Blood Urea Nitrogen: 4 mg/dL -- Normal range between ( 7 and 22 ) Fructosamine: 222 Protein Total: 6.9 Gram/dL -- Normal range between ( 6.4 and 8.2 ) Albumin Level: 3.6 Gram/dL -- Normal range between ( 3.4 and 5.0 ) Coagulation 04/26/2022 3:20 PM INR: 1.0 -- Normal range between ( 0.9 and 1.1 ) PTT: 29.2 Second(s) -- Normal range between ( 24.2 and 31.8 ) PT: 9.9 Second(s) -- Normal range between ( 9.6 and 11.5 ) Endocrinology 04/29/2022 11:55 AM HCG Urine Qualitative: Negative Toxicology 04/26/2022 3:20 PM Nicotine Serum-Plasma: 25.7 ng/mL Cotinine Serum-Plasma: 387.8 ng/mL Protein & Immunoglobulin Studies 04/26/2022 3:20 PM Prealbumin: 21.9 mg/dL -- Normal range between ( 20.0 and 40.0 ) Vitamin Chemistry 04/26/2022 3:20 PM Vitamin D 25 Hydroxy: 27.2 ng/mL -- Normal range between ( 30.0 and 100.0 ) Patient Name:VEENA SHELTON CARLA I have received this information and was given the opportunity to ask questions. Patient/Mid Wife Name: Patient/Mid Wife Signature: Relationship to Patient: Clinician/Hospital Mid Wife Signature: Date: documented in this encounter Plan of Treatment Not on file documented as of this encounter Visit Diagnoses Not on filedocumented in this encounter
--- OUTSIDE RECORDS SUMMARY | 2025-03-17 21:50 | XMS_ITS | Encounter Summary ---
Author Organization [employer] Address [address] [place] [address] Care Team Providers Care Radiotelegraphist Name Role Phone Unavailable Primary Care Provider Unavailabl e Encounter Details Date Type Department Care Team (Late st Contact Info) Description 04/29/2022 Transcribed Document [facility] Family Medicine [address] [place] [address] ProviderSegundo MD [facility] [place] [address] Social History Tobacco Use Types [...] 04/29/2022 12:46 PM CDT [facility] Main OR IntraOp Summary Primary Physician: CHARANJIT SOTELO MD-ORT Finalized Date/Time: 04/29/22 13:47:44 Pt. Name: HORACIOSHYANNEVEENA /Sex: 1985 Female Med Rec #: [id number] Physician: CHARANJIT SOTELO MD-ORT Financial #: [id number] Pt. Type: O Room/Bed: [facility]/4 Admit/Disch: 04/29/22 05:15:00 - Institution: [facility] IntraOp Case Attendance Entry 1 Entry 2 Entry 3 Case Attendee CHARANJIT SOTELO MD-ORT Bowling, Jachob, SPRATLIN, WILLIAM, CRNA [email or web address] Role Performed Surgeon/Proceduralist, MINE EXPERT/Nurse Outbound Telemarketer MINE EXPERT/Nurse Outbound Telemarketer First Time In 04/29/22 12:21:00 04/29/22 12:21:00 04/29/22 12:21:00 Time Out 04/29/22 13:40:00 04/29/22 13:40:00 04/29/22 13:40:00 Procedure Lumbar Laminectomy Lumbar Laminectomy Lumbar Laminectomy Discectomy 1 Level Discectomy 1 Level Discectomy 1 Level Other Attendee Superficial Wound Closed By: Last Modified By: Debbie Bautista RN Wellnitz, Sara, Debbie Cheney, CARLY 04/29/22 13:39:50 04/29/22 13:39:50 04/29/22 13:39:50 Entry 4 Entry 5 Entry 6 Case Attendee SANDI DUQUE PA-C Wellnitz, Sara, YESSY ALBA, GERALD KELLEY Role Performed Physician assistant front end manager Director Diversity, First Scrub, First Time In 04/29/22 12:21:00 04/29/22 12:21:00 04/29/22 12:21:00 Time Out 04/29/22 13:40:00 04/29/22 13:40:00 04/29/22 13:40:00 Procedure Lumbar Laminectomy Lumbar Laminectomy Lumbar Laminectomy Discectomy 1 Level Discectomy 1 Level Discectomy 1 Level Other Attendee Superficial Wound Closed By: Last Modified By: Debbie Bautista, Debbie Cheney, Debbie Cheney, CARLY 04/29/22 13:39:50 04/29/22 13:39:50 04/29/22 13:39:50 Entry 7 Case Attendee SANDI DUQUE PA-C Role Performed Physician assistant front end manager Time In 04/29/22 12:21:00 Time Out 04/29/22 13:40:00 Procedure Lumbar Laminectomy Discectomy 1 Level Other Attendee Superficial Wound Closed By: Ethan Modified By: Debbie Bautista RN 04/29/22 13:39:50 [facility] IntraOp Case Attendance Audit 04/29/22 13:40:10 Piercing Mill Operator: PALOMA Modifier: PALOMA 4 <+> Case Attendee 4 <*> Procedure Lumbar Laminectomy Discectomy 1 Level 04/29/22 13:39:50 Piercing Mill Operator: PALOMA Modifier: WELLNISA 1 <+> Time Out 1 <*> Procedure Lumbar Laminectomy Discectomy 1 Level 2 <+> Time Out 2 <*> Procedure Lumbar Laminectomy Discectomy 1 Level 3 <+> Time Out 3 <*> Procedure Lumbar Laminectomy Discectomy 1 Level 4 <+> Time Out 4 <*> Procedure Lumbar Laminectomy Discectomy 1 Level 5 <+> Time Out 5 <*> Procedure Lumbar Laminectomy Discectomy 1 Level 6 <+> Time Out 6 <*> Procedure Lumbar Laminectomy Discectomy 1 Level 7 <+> Time Out 7 <*> Procedure Lumbar Laminectomy Discectomy 1 Level 04/29/22 12:51:11 Piercing Mill Operator: PALOMA Modifier: WELLNISA 1 <+> Time In 1 <*> Procedure Lumbar Laminectomy Discectomy 1 Level 2 <+> Time In 2 <*> Procedure Lumbar Laminectomy Discectomy 1 Level 3 <+> Time In 3 <*> Procedure Lumbar Laminectomy Discectomy 1 Level 4 <+> Time In 4 <*> Procedure Lumbar Laminectomy Discectomy 1 Level 5 <+> Time In 5 <*> Procedure Lumbar Laminectomy Discectomy 1 Level 6 <+> Time In 6 <*> Procedure Lumbar Laminectomy Discectomy 1 Level <+> 7 Case Attendee <+> 7 Role Performed <+> 7 Time In <+> 7 Procedure [facility] IntraOp Case Times Entry 1 Patient In Room Time 04/29/22 12:21:00 Out Room Time 04/29/22 13:40:00 Anesthesia Start Time 04/29/22 12:21:00 Stop Time 04/29/22 13:40:00 Anesthesia Ready 04/29/22 12:21:00 Surgery / Procedure Times Start Time 04/29/22 12:46:00 Stop Time 04/29/22 13:32:00 Last Modified By: Debbie Bautista RN 04/29/22 12:50:19 [facility] IntraOp Case Times Audit 04/29/22 13:39:46 Piercing Mill Operator: PALOMA Modifier: WELLJONAHA 1 <+> Out Room Time 1 <+> Stop Time 1 <*> Stop Time 04/29/22 13:30:00 04/29/22 13:38:03 Piercing Mill Operator: PALOMA Modifier: YANCYA <+> 1 Stop Time [facility] IntraOp Cautery Entry 1 ESU Identification Cautery Type Monopolar ESU ID Number [id number] ID Type Hospital Number Cautery Settings Cut Setting 35 Coag Setting 35 ESU Grounding Pad Ground Pad Type Adult Grounding Pad Site Left thigh Grounding Pad Site Intact Skin Condition Before Cautery Grounding Pad Site Unchanged Skin Condition After Cautery Last Modified By: Debbie Bautista RN 04/29/22 11:44:46 [facility] IntraOp Cautery Audit 04/29/22 13:21:50 Piercing Mill Operator: PALOMA Modifier: PALOMA <+> 1 ID Number [facility] IntraOp Communication Entry 1 Communication To Family/Significant other Comment PROCEDURE START Communication By Debbie Bautista, CARLY Last Modified By: Debbie Bautista RN 04/29/22 11:45:02 [facility] IntraOp Counts Verification Entry 1 Procedure Lumbar Laminectomy Discectomy 1 Level Count Info Count Type Sponge, Sharps Counts Verification Baseline/pre-procedure Sequence Count Results Not Applicable Counts Performed By Count Performed By YESSY TUBBS, OR (Scrub) TECH Count Performed By Debbie Bautista RN (RN) Last Modified By: Debbie Bautista RN 04/29/22 12:50:30 [facility] IntraOp Counts Verification Audit 04/29/22 12:50:30 Piercing Mill Operator: PALOMA Modifier: PALOMA 1 <*> Procedure Lumbar Laminectomy Discectomy 1 Level 1 <+> Count Performed By (Scrub) 1 <+> Count Performed By (RN) [facility] IntraOp Counts Final Entry 1 Procedure Lumbar Laminectomy Discectomy 1 Level Final Count Info Count Type Sponge, Sharps Counts Verification Skin Closure/end of Sequence procedure Count Results Correct, surgeon notified Counts Performed By Count Performed By YESSY TUBBS, OR (Scrub) TECH Count Performed By Debbie Bautista RN (RN) Last Modified By: Debbie Bautista RN 04/29/22 13:22:44 [facility] IntraOp Cultures and Spec Summary Entry 1 Cultrures and Specimens Specimen Ordered: Yes Test(s) Routine/Path-Lab Requested/Final Disposition Last Modified By: Debbie Bautista RN 04/29/22 12:51:21 [facility] IntraOp Departure from OR Entry 1 Integumentary Assessment Integumentary WDL Assessment WDL Transfer/Handoff Transfer to PACU Phase I Handoff Method Bedside/Face to face Post-op Transport Bed (including Via specialty) Patient Transport Debbie Bautista RN, Accompanied by Dallas Gutiérrez [email or web address] Last Modified By: Debbie Bautista RN 04/29/22 13:38:07 [facility] IntraOp Dressing and Packing Entry 1 Type Dressing Location OP SITE Wound Dressing Item Occlusive dressing, Skin Closure Glue Other Comments PRINEO DRESSING + AQUACEL Last Modified By: Debbie Bautista RN 04/29/22 12:51:29 [facility] IntraOp Fire Risk Assessment Entry 1 Fire Info Surgical Site or 0- No Incision Above the Xyphoid Open O2 Source 0- No (Mask or Cannula) Available Ignition 1- Yes (ESU, Laser, Light Source) Fire Risk 1 Assessment Score Fire Score Fire Risk Yes Assessment Complete Fire Risk Debbie Bautista RN Assessment Verified By Fire Risk 04/29/22 12:51:00 Assessment Verified Date/Time Fire Risk High Risk Protocol Yes Implemented Standard Fire Yes Safety Precautions Followed Last Modified By: Debbie Bautista RN 04/29/22 12:51:36 [facility] IntraOp General Case Safety Supervisor 1 Case Information OR OR 01 SJE Case Level 1 Room Verified Yes Wound Class 1 - Clean Specialty Neurosurgery ASA Class 3 Diagnosis Preop Diagnosis RIGHT SIDED LOW BACK PAIN Postop Diagnosis SEE POST OP NOTE Wound Class Definitions Last Modified By: Debbie Bautista RN 04/29/22 12:52:47 [facility] IntraOp Intraoperative Assessment Entry 1 Handoff Method Bedside/Face to face Valid History / Yes Physical in Chart Preoperative Yes Checklist Reviewed/Evaluated Allergies Reviewed Yes Patient is Latex No Sensitive Isolation Not applicable Precautions Noted Level of WDL Consciousness (WDL = Alert, Oriented to Person, Place, and Time) Skin Assessment Yes Verified Present Upon IVs Arrival to OR Last Modified By: Debbie Bautista RN 04/29/22 12:52:55 [facility] IntraOp Intraoperative Equipment Entry 1 Type Equipment Equipment Equipment Mark Suction System Intraop Monitoring Electrocardiogram Three lead placement (ECG) Electrode Placement Blood Pressure Non-Invasive BP Device Source Blood Pressure Arm, left upper Location Pulse Oximeter Hand, right Probe Site Antiembolic Devices Antiembolic Devices Sequential compression device, knee high Antiembolic Device Bilateral Location Scopes Photo/Video Documentation Photo No Video No Last Modified By: Debbie Bautista RN 04/29/22 12:53:46 [facility] IntraOp Medication Admin Entry 1 Entry 2 Entry 3 Medication/Irrigant thrombin 5000units SPNG SURGFOAM [id number] Marcaine 0.5% w/ topical kit epinephrine 1:200,000 (recombinant) - 30ml vial - [id number] Combo Med List Time Administered Route of TOPICAL TOPICAL LOCAL Administration Dose Dose Unit of Measure units gram ml Volume QS QS Administered By CHARANJIT SOTELO MD-ORT LOCKSTADT, HARRY, MD-ORT LOCKSTADT, HARRY, MD-ORT Procedure Irrigation Irrigant Volume In Irrigant Volume Out Last Modified By: Debbie Bautista RN Wellnitz, Sara, RN Wellnitz, Sara, RN 04/29/22 12:53:56 04/29/22 12:53:56 04/29/22 12:53:56 [facility] IntraOp Patient Positioning Entry 1 Procedure Lumbar Laminectomy Discectomy 1 Level Body Position Prone Left Arm Position Secured on padded arm board Right Arm Position Secured on padded arm board Left Leg Position Uncrossed, parallel Right Leg Position Uncrossed, parallel Feet Uncrossed Yes Pressure Points Yes Checked Positioning Devices Jesse Table, Valentin Frame, Safety Strap, Thighs, Arm Board, Head Rest, Pillows Positioning Device PRONE VIEW HEAD REST Comments USED BY ANESTH. PILLOWS UNDER LOWER LEGS, GEL PADS UNDER ARMS Positioned By Debbie Bautista, CARLY, Dallas Gutiérrez [email or web address], CHARANJIT SOTELO MD-ORT, SANDI DUQUE PA-C Position Verified Positioning Yes Verified by Anesthesia Positioning Yes Verified by Surgeon Last Modified By: Debbie Bautista RN 04/29/22 12:54:20 [facility] IntraOp Sign In Entry 1 Patient, Site, Yes Procedure Identified Surgical Consent Yes Confirmed Surgical Site N/A Marked by person performing procedure Anesthesia Machine Yes Check Completed Medication Checks Yes Completed Allergies Yes Airway Difficult Yes Airway/Aspiration Risk Difficult Yes Airway/Aspiration Intervention Equipment Available Blood Loss Risk No Blood Identifiers Not applicable Verified Per Policy Hypothermia Risk Yes Warming Measures Yes Taken Last Modified By: Debbie Bautista RN 04/29/22 12:54:39 [facility] Intra Op Sign Out Entry 1 RN Confirmation Surgical Yes Procedure(s) Identified Instrument, Sponge Yes and Sharps Counts Correct/Documented Equipment Problems N/A Documented Specimen Labeled N/A Correctly Urinary Catheter N/A Documented in IView Wound Yes classification reviewed, verified and updated post case in both the General Case Data and Procedure segments Regan Patient Yes Recovery Concerns Reviewed with Anesthesia Provider, Surgeon and RN Regan Patient Yes Management Concerns Reviewed with Anesthesia Provider, Surgeon and RN Safety Checklist Yes Elements Complete? RN Sign Out Debbie Bautista RN Signature RN Sign Out 04/29/22 13:22:00 Signature Date/Time Plan of Care Outcome - Fire Risk OUTCOME STATEMENT: Goal met Patient is free from injury related to surgical fire Plan of Care Outcome - Pt Positioning OUTCOME STATEMENT: Goal met Absence of signs and symptoms of positioning injury. Plan of Care Outcome - Skin Prep OUTCOME STATEMENT: Goal met Intraoperative care is consistent with measures to prevent infection Plan of Care Outcome - Xray/Images OUTCOME STATEMENT: Goal met Absence of observable signs or symptoms of radiation injury Plan of Care Outcome - Counts OUTCOME STATEMENT: Goal met Absence of signs and symptoms of injury related to extraneous objects Last Modified By: Debbie Bautista RN 04/29/22 13:23:02 [facility] IntraOp Skin Prep Entry 1 Procedure Lumbar Laminectomy Discectomy 1 Level Prescribed Yes Pre-Surgical Prep Completed Prep Area OP SITE Intraop Prep Integumentary WDL Assessment WDL Prep Agents Chloraprep Prep by Debbie Bautista RN Hair Removal Methods No hair removal performed Last Modified By: Debbie Bautista RN 04/29/22 12:54:51 [facility] IntraOp Surgical Procedures Entry 1 Procedure Lumbar Laminectomy Discectomy 1 Level Primary Procedure Yes Primary Surgeon CHARANJIT SOTELO MD-ORT Start 04/29/22 12:46:00 Stop 04/29/22 13:32:00 Anesthesia Type General Specialty Spinal Wound Class 1 - Clean Last Modified By: Debbie Bautista RN 04/29/22 13:39:23 [facility] IntraOp Temp Regulation Devices Entry 1 Temp Regulation Temperature Forced Air Warming Regulation Device device, Warm blankets Temperature Upper body Regulation Site Temperature Debbie Bautista RN Regulation Device Applied by Last Modified By: Debbie Bautista RN 04/29/22 12:56:51 [facility] IntraOp Time Out Entry 1 Procedure to be Lumbar Laminectomy Performed Discectomy 1 Level Time Out Time Out Pause Time 04/29/22 12:45:00 All activity Yes suspended (unless life threatening emergency) Team Verbally Correct patient Confirms Information identity, Correct side and site are marked, Consent form is present and accurate, Agreement on the procedure to be done, Correct patient position, Relevant images/results properly labeled/appropriately displayed, Confirm antibiotics have been administered, Confirm the skin prep has dried, Confirm prosthesis/implant/devic e is present, Performed in location of procedure after prepped/draped Antibiotic Yes Prophylaxis Administered Or In Progress Within the Last 60 Minutes Beta Jonathan Yes Administered Venous Yes Thromboembolism Prophylaxis Required Anticipated Critical Events Surgeon None expected Anesthesia Provider None expected Nursing Assures Sterility of instruments, Equipment concerns or issues, Implant Availability Essential Imaging Yes Labeled and Displayed Last Modified By: Debbie Bautista RN 04/29/22 12:55:44 [facility] IntraOp X-Ray and Images Entry 1 X-Ray/Imaging Type Fluoroscopy Fluoroscopy Type C-Arm Site LOWER BACK Fire Range Technician Name Lucy Cartwright, Reel Fed Printer Protective Devices Yes Used Last Modified By: Debbie Bautista RN 04/29/22 12:56:19 Case Comments <None> Finalized By: Debbie Bautista, RN Document Signatures Signed By: Debbie Bautista RN 04/29/22 13:47 documented in this encounter Plan of Treatment Not on file documented as of this encounter Visit Diagnoses Not on filedocumented in this encounter
--- NOTE | 2025-03-17 21:53 | ED_ITS ---
Discharge Plan Disposition Patient Disposition: Home, Self-Care Prescriptions Prescriptions: New amoxicillin-pot clavulanate 875-125 mg tablet 1 tab PO BID 5 Days Qty: 10 0RF azithromycin 250 mg tablet 250 mg PO DAILY 4 Days Qty: 4 0RF Rx Instructions: start on day 2 of therapy potassium chloride [K-Tab] 20 mEq tablet extended release 20 meq PO DAILY Qty: 7 0RF No Action divalproex 500 mg tablet,delayed release (DR/EC) 500 mg PO HS Qty: 90 0RF hydrocodone-acetaminophen 5-325 mg tablet 1 tab PO Q6H PRN (Reason: pain) 30 Days Qty: 120 0RF lidocaine 5 % adhesive patch,medicated 1 patch TOPICAL DAILY Qty: 30 5RF Rx Instructions: leave on most painful area for up to 12 hrs cholecalciferol (vitamin D3) 1,250 mcg (50,000 unit) capsule See Rx Instructions .ROUTE .COMPLEX Qty: 5 0RF Dose Instruction: TAKE ONE CAPSULE BY MOUTH ONCE A WEEK Rx Instructions: TAKE ONE CAPSULE BY MOUTH ONCE A WEEK cholecalciferol (vitamin D3) 25 mcg (1,000 unit) tablet See Rx Instructions .ROUTE .COMPLEX Qty: 90 5RF Dose Instruction: TAKE ONE TABLET BY MOUTH EVERY DAY --TAKE WITH FOOD-- Rx Instructions: TAKE ONE TABLET BY MOUTH EVERY DAY --TAKE WITH FOOD-- bisoprolol fumarate 5 mg tablet See Rx Instructions .ROUTE .COMPLEX Qty: 90 5RF Dose Instruction: TAKE 1 TABLET BY MOUTH EVERY DAY Rx Instructions: TAKE 1 TABLET BY MOUTH EVERY DAY omeprazole 20 mg capsule,delayed release(DR/EC) See Rx Instructions .ROUTE .COMPLEX Qty: 90 5RF Dose Instruction: TAKE ONE CAPSULE BY MOUTH EVERY DAY Rx Instructions: TAKE ONE CAPSULE BY MOUTH EVERY DAY sumatriptan succinate 25 mg tablet See Rx Instructions PO .COMPLEX Qty: 60 2RF Rx Instructions: take 1 tab at onset of headache; if no relief may repeat 1 tab after at least 2 hrs; max = 4 tabs/24 hr PO meloxicam 15 mg tablet 15 mg PO DAILY Qty: 30 2RF topiramate 50 mg capsule,extended release 24hr 50 mg PO DAILY Qty: 30 2RF albuterol sulfate [Ventolin HFA] 90 mcg/actuation HFA aerosol inhaler See Rx Instructions .ROUTE .COMPLEX Qty: 18 3RF Dose Instruction: INHALE TWO PUFFS BY MOUTH EVERY 8 HOURS NEEDED SHORTNESS OF BREATH OR wheezing Rx Instructions: INHALE TWO PUFFS BY MOUTH EVERY 8 HOURS NEEDED SHORTNESS OF BREATH OR wheezing quetiapine 100 mg tablet See Rx Instructions .ROUTE .COMPLEX Qty: 150 1RF Dose Instruction: TAKE FIVE TABLETS BY MOUTH EVERY NIGHT Rx Instructions: TAKE FIVE TABLETS BY MOUTH EVERY NIGHT alprazolam 0.5 mg tablet 0.5 mg PO TID Qty: 90 0RF Referrals Follow up/Referrals: Deuce Marie MD [Primary Care Provider, Family Practice] - See instructions Activity Restrictions/Add. Instructions Additional Instructions/Restrictions: Take antibiotics as prescribed. Take Tylenol and ibuprofen as needed for pain. Follow-up with primary care doctor. Please return to the ER with any new, concerning, or worsening symptoms. Clinical Impressions Clinical Impression: Acute chest pain Pneumonia Qualifiers: Pneumonia type: due to unspecified organism Laterality: left Lung location: l ower lobe of lung Qualified Code(s): J18.9 - Pneumonia, unspecified organism Print Language Print Language: Greenlandic Discharge ED Provider: Curtis Draper General Adult HPI General Chief complaint: Chest Pain Stated complaint: Chest Pain Time Seen by Provider: 03/17/25 21:43 Mode of Arrival: Ambulatory Source of Information: Patient Limitations: No Limitations History of Present Illness HPI narrative: This is a 39-year-old female with a history of Vucbx-Smybhjnsx-Suemv and bipolar disorder who presents with sharp left-sided chest pain that began this morning. States that it has been intermittent throughout the day, worse with breathing and and position changes. States that it is worse with lying back. States that she has also had viral upper respiratory symptoms over the last few days. States that she also ran out of her alprazolam early and she has an appointment scheduled for Monday to get a refill. Related Data Previous Rx's ?Medication ?Instructions ?Recorded cholecalciferol (vitamin D3) 1,250 See Rx Instructions .Route 07/27/23 mcg (50,000 unit) capsule .COMPLEX #5 caps cholecalciferol (vitamin D3) 25 See Rx Instructions .R oute 07/27/23 mcg (1,000 unit) tablet .COMPLEX #90 tabs divalproex 500 mg tablet,delayed 500 mg PO HS #90 tabs 06/11/24 release bisoprolol fumarate 5 mg tablet See Rx Instructions .R oute 06/27/24 .COMPLEX #90 tabs omeprazole 20 mg capsule,delayed See Rx Instructions . Route 09/09/24 release .COMPLEX #90 caps sumatriptan succinate 25 mg tablet See Rx Instructions PO .COMPLEX 12/30/24 #60 tabs meloxicam 15 mg tablet 15 mg PO DAILY #30 tabs 11/02 topiramate 50 mg capsule,extended 50 mg PO DAILY #30 c aps 01/24/25 release 24 hr albuterol sulfate 90 mcg/actuation See Rx Instructions .Route 01/27/25 aerosol inhaler (Ventolin HFA) .COMPLEX #18 grams quetiapine 100 mg tablet See Rx Instructions .Route 0 02/17/25 .COMPLEX #150 tabs hydrocodone 5 mg-acetaminophen 325 1 tab PO Q6H PRN pa in 30 days #120 02/20/25 mg tablet tabs lidocaine 5 % topical patch 1 patch topical DAILY #30 ea 02/20/25 alprazolam 0.5 mg tablet 0.5 mg PO TID #90 tabs 03/17 amoxicillin 875 mg-potassium 1 tab PO BID 5 days #10 t abs 03/17/25 clavulanate 125 mg tablet azithromycin 250 mg tablet 250 mg PO DAILY 4 days #4 t abs 03/17/25 potassium chloride 20 mEq 20 meq PO DAILY #7 tabs 07/03 tablet,extended release (K-Tab) Allergies Allergy/AdvReac Type Severity Reaction Status Date / Time meperidine (From DEMEROL) Allergy Mild Verified 02/20/25 14:53 steroids Allergy Severe elevated Uncoded 02/04/25 16:37 heart rate [facility] Disclaimer: The information contained in this section may have been updated after the patient was seen, as this information can be updated by other users. Medical History (Updated 03/17/25 @ 23:36 by Curtis Draper MD) Abnormal electrocardiogram [ECG] [EKG] Bipolar II disorder Zhflm-Mbtfxxgjf-Fltiu (WPW) syndrome, type A Vitamin D deficiency Chest pain Surgical History (Updated 02/20/25 @ 16:28 by Deuce Marie MD) History of lumbar surgery History of bilateral tubal ligation H/O cardiac radiofrequency ablation Social History Smoking Status: Current every day smoker tobacco type: cigarettes packs per day: 1 alcohol intake: never substance use type: denies use and marijuana current occupational status: unemployed Travel in the last 8 weeks?: None household members: family housing: house number of children: 3 caffeine: Yes Have you lived/traveled outside US in past 30 days?: No Contact w/someone who lives/traveled outside US past 30 days?: No Exposure to someone with infectious disease in past 14 days?: No Do you have a fever (greater than 100.4 F or 38 C)?: No Have you tested positive for COVID-19?: No Exposed to someone with COVID-19 in past 14 days?: No Do you have a sore throat?: No Do you have a cough?: No Do you have any weakness?: No Do you have any diarrhea?: No Are you experiencing any unusual bleeding?: No Do you have any muscle aches/pain?: No Do you have any abdominal pain?: No Are you experiencing loss of taste or smell?: No Other Medical History Have you received the Flu Vaccine for this season: No Have you received the Pneumonia Vaccine: No ROS Obtained: Yes All systems reviewed & no additional complaints except as documented Physical Exam General General appearance: alert and in no apparent distress Head Head exam: atraumatic Eye Eye exam: Present normal appearance, PERRL and EOMI Neck Neck exam: Present normal inspection and full ROM Chest Chest inspection: Present symmetric chest wall rise Respiratory Respiratory exam: Present normal lung sounds bilaterally; Absent respiratory distress Cardiovascular Cardiovascular exam: Present regular rate and normal rhythm Abdominal Exam Abdominal exam: Present soft; Absent distention Extremities Exam Extremities exam: Present normal inspection Neurological Exam Neurological exam: Present alert and oriented X3 Psychiatric Psychiatric exam: Present normal affect and normal mood Skin Skin exam: Present warm and dry Medical Decision Making Medical Records Medical records reviewed: Yes I reviewed the patient's medical records. Screening: Per USPSTF and CDC recommendations, given the prevalence of disease in our region, it is our hospital?s policy to screen for HIV and viral Hepatitis for all patients aged 18 and over and those with ongoing risk factors. Jaya Inquiry Pt receiving controlled substance: No Vital Signs: 03/17/25 21:41 03/17/25 21:41 03/17/25 22:00 Temperature 99.8 F H Temperature Source Tympanic Pulse Rate 100 H 78 Pulse Rate [Left] 100 H Respiratory Rate 22 16 Blood Pressure 112/73 Blood Pressure [Right Arm] 133/83 Blood Pressure Mean 86 Blood Pressure Mean [Right Arm] 99 02 Sat by Pulse Oximetry 98 98 Oxygen Delivery Method Room Air Lab Data Lab Results 03/17/25 21:47: WBC 16.9 H, RBC 4.19 L, Hgb 13.2, Hct 38.3, MCV 91.4, MCH 31.5 H , MCHC 34.5, RDW 13.6, Plt Count 443 H, MPV 9.4, Neut % (Auto) 74.3, Lymph % (Auto) 17.0, Mcclain % (Auto) 8.0, Eos % (Auto) 0.1, Baso % (Auto) 0.2, Neut # (Auto) 12.6 H, Lymph # (Auto) 2.9, Mcclain # (Auto) 1.3 H, Eos # (Auto) 0.0, Baso # (Auto) 0.0, D-Dimer 0.50, Sodium 135 L, Potassium 3.3 L, Chloride 106, Carbon Dioxide 21 L, Anion Gap 11.3, BUN 9, Creatinine 0.60, Estimated Creat Clear 97, Estimated GFR 112, Est GFR ( Amer) 136, Glucose 105 H, Calcium 9.4, Total Bilirubin 0.7, AST 19, ALT 13, Alkaline Phosphatase 81, Troponin I < 0.01, C- Reactive Protein 48.9 H, Total Protein 8.4 H, Albumin 4.3, Globulin 4.1 H, A lbumin/Globulin Ratio 1.0 L, Serum HCG, Qual Negative 03/17/25 21:47 03/17/25 21:47 Orders (Tests/Meds): ED MEDICATIONS Generic Name Dose Route Start Last Admin Trade Name Freq PRN Reason Stop Dose Admin Sodium Chloride 10 ml 03/17/25 22:30 03/17/25 22:33 Sodium Chloride 0.9% 10ml Syr (Rad Only) IV 04/16/25 22:29 10 ml NEEDED PRN Administration Maintain IV Site Discontinued Medications Generic Name Dose Route Start Last Admin Trade Name Freq PRN Reason Stop Dose Admin Acetaminophen 1,000 mg 03/17/25 21:50 03/17/25 22:16 Acetaminophen 500mg Tab PO 03/17/25 21:51 1,000 mg ONCE ONE Administration Alprazolam 0.5 mg 03/17/25 21:50 03/17/25 22:17 Alprazolam 0.5mg Tablet PO 03/17/25 21:51 0.5 mg ONCE ONE Administration Iopamidol 70 ml 03/17/25 22:30 03/17/25 22:33 Iopamidol-370 (76%);100ml Bottle IV 03/17/25 22:31 70 ml ONCE ONE Administration Sodium Chloride 50 ml 03/17/25 22:30 03/17/25 22:33 0.9 % Sodium Chloride 50 Ml Vial IV 03/17/25 22:31 50 ml ONCE ONE Administration ORDERS Category Date Time Status CTA Chest [CT angio chest PE protocol] Stat Cat Scan 03/17/25 22:20 Completed Chest XR -- portable [XR chest portable] Stat Exams 03/17/25 21:50 Completed POCUS Point of Care (ER Only) Stat Exams 03/17/25 21:54 Completed CBC w/Auto Diff [Complete Blood Count Auto Diff] Stat Lab 03/17/25 21:47 Completed CMP [Comprehensive Metabolic Panel] Stat Lab 03/17/25 21:47 Completed CRP [C-Reactive Protein] Stat Lab 03/17/25 21:47 Completed D-Dimer Stat Lab 03/17/25 21:47 Completed HCG Qualitative, Serum Stat Lab 03/17/25 21:47 Completed Troponin I Q3H Lab 03/18/25 01:00 Ordered Troponin I Q3H Lab 03/18/25 04:00 Ordered Troponin I Stat Lab 03/17/25 21:47 Completed ECG Data Tracing #1: I reviewed this ECG and interpreted as documented below: Normal sinus rhythm at a rate of 93, QTc 366, FL of 96, ST depressions in leads II, 3, aVF, no clear ST elevation Medical Decision Narrative: In summary, this 39-year-old female with a history of a Parkinson White and bipolar disorder presents to the emergency department today with chest pain. On initial evaluation patient is afebrile, hemodynamically stable, nontoxic- appearing. Differential diagnosis includes but is not limited to ACS, pulmonary embolism, pericarditis, pneumothorax, pneumonia. Based on these concerns, I ordered test, CBC, CMP, CRP, troponin, EKG, D-dimer, chest x-ray. Considered CT PE, however patient otherwise low risk for pulmonary embolism and will assess risk with D-dimer first.. ECG personally interpreted as noted above. Ordered repeat given ST segment depressions in the inferior leads. Repeat an hour later showed no dynamic changes. Patient received Tylenol for treatment. Labs personally reviewed demonstrate white blood cell count of 16.9, D-dimer of 0.5. Ordered CT PE. Mild hypokalemia at 3.3. Undetectable troponin, negative test. XR personally interpreted demonstrates an opacity in the left lower lung. Radiology report reads lingular opacity. [id number] ultrasound demonstrates no pericardial effusion. CT imaging personally interpreted demonstrates no acute pulmonary embolism however does redemonstrate left lung opacities. Radiology report suggests infection. Patient's labs support this given elevated CRP and white blood cell count. Patient administered Toradol and her first doses of antibiotics, Augmentin and azithromycin. On reassessment patient in no acute distress, satting appropriately on room air. Appropriate for discharge with outpatient management. Procedures Miscellaneous Procedure Procedure Performed: Cardiac US Limited Cardiac Ultrasound Indication: Chest pain Identified cardiac views: -Cardiac parasternal long axis -Cardiac parasternal short axis -Cardiac apical four-chamber -Cardiac subxiphoid Findings: Normal gross systolic function. No pericardial effusion. Impression: - From above Images were saved to permanent archive The study was technically adequate CPT: 31518 This study was performed by me, and I personally interpreted all images/videos. Based on my clinical judgement, these images were adequate and did not necessitate further imaging. Critical Care Critical Care Time Critical Care Time: No
[2025-03-17 21:59] LABS: Basophils % 0.2 % (0.1-2.0); Eosinophils % 0.1 % (0.1-12.0); Hematocrit 38.3 % (37.0-47.0); Hemoglobin 13.2 g/dL (12.2-16.2); Immature Granulocytes # 0.06 10^3uL; Immature Granulocytes % 0.4 %; Lymphocytes # 2.9 K/mm3 (0.7-4.5); Mean Corpuscular HGB Conc 34.5 g/dL (31.8-35.4); Mean Corpuscular Hemoglobin 31.5 pg (27.0-31.2); Mean Corpuscular Volume 91.4 fl (81-99); Mean Platelet Volume 9.4 fl (7.4-10.4); Monocytes # 1.3 K/mm3 (0.1-1.0); Neutrophils # 12.6 K/mm3 (1.8-7.8); Neutrophils % 74.3 % (37.0-80.0); Nucleated Red Blood Cells # 0 10^3/uL; Nucleated Red Blood Cells % 0 %; Platelet Count 443 K/mm3 (142-424); Red Blood Count 4.19 M/mm3 (4.20-5.40); Red Cell Distribution Width 13.6 % (11.5-17.5); Red Cell Distribution Width-SD 45.2 fL; White Blood Count 16.9 K/mm3 (4.8-10.8)
[2025-03-17 22:00] VITALS: BP 112/73; PULSE 78; RESP 16; O2SAT 98
[2025-03-17 22:07] LABS: Alanine Aminotransferase 13 U/L (12-78); Albumin Level 4.3 g/dl (3.5-5.0); Alkaline Phosphatase 81 U/L (38-126); Anion Gap 11.3 mEq/L (5-15); Aspartate Amino Transferase 19 U/L (14-36); Bilirubin,Total 0.7 mg/dl (0.2-1.3); Blood Urea Nitrogen 9 mg/dl (7-17); Calcium 9.4 mg/dl (8.4-10.2); Carbon Dioxide 21 mmol/L (22.0-30.0); Chloride 106 mmol/L (98-107); Creatinine Clearance Estimated 97 mL/min (50-200); Estimated Glomerular Filt Rate 112 ml/min (>60); GFR (African American) 136 ML/MIN (>60); Globulin 4.1 g/dL (1.3-3.2); Glucose 105 mg/dl (74-100); Potassium 3.3 mmoL/L (3.5-5.1); Sodium 135 mmol/L (136-145); Total Protein,Serum 8.4 g/dl (6.3-8.2)
[2025-03-17 22:11] LABS: HCG Qualitative, Serum Negative (Negative)
[2025-03-17 22:12] LABS: C-Reactive Protein 48.9 mg/L (0-4)
[2025-03-17] MEDS: ACETAMINOPHEN 500MG TAB 1000 MG PO (22:16)
[2025-03-17] MEDS: ALPRAZolam 0.5MG TABLET 0.5 MG PO (22:17)
--- NOTE | 2025-03-17 22:20 | CT_ITS ---
PROCEDURE INFORMATION: Exam: CTA Chest With Contrast Exam date and time: 03/17/2025 10:31 PM Age: 39 years old Clinical indication: Pain; Chest pressure; Additional info: Pleuritic chest pain TECHNIQUE: Imaging protocol: Computed tomographic angiography of the chest with contrast. Exam focused on the arteries. 3D rendering (Not supervised by radiologist): MIP and/or 3D reconstructed images were created by the technologist. Radiation optimization: All CT scans at this facility use at least one of these dose optimization techniques: automated exposure control; mA and/or kV adjustment per patient size (includes targeted exams where dose is matched to clinical indication); or iterative reconstruction. Contrast material: ISOVUE; Contrast volume: 70 ml; Contrast route: INTRAVENOUS (IV); COMPARISON: CR XR CHEST PORTABLE 03/17/2025 10:20 PM FINDINGS: Pulmonary arteries: No central or segmental pulmonary arterial intraluminal filling defects identified. Aorta: Unremarkable. No aortic aneurysm. No aortic dissection. Lungs: Patchy opacities in left lung most pronounced in lingular and left posterior lower lobe. Partially opacified left lower lobar segmental bronchi. Pleural spaces: Unremarkable. No pneumothorax. No pleural effusion. Heart: Unremarkable. No cardiomegaly. No pericardial effusion. Lymph nodes: Calcified left hilar lymph nodes without lymphadenopathy. Bones/joints: Unremarkable. No acute fracture. Soft tissues: Unremarkable. IMPRESSION: 1. No central or segmental pulmonary arterial embolism identified. 2. Left lingular segment and lower lobar infiltration with partial mucoid inspissation in left lower lobar segmental bronchi. Correlate for history of COVID pneumonia.
[2025-03-17 22:24] LABS: Troponin I < 0.01 ng/ml (0.00-0.034)
[2025-03-17] MEDS: IOPAMIDOL-370 (76%);100ML BOTTLE 70 ML IV (22:33)
[2025-03-17] MEDS: SODIUM CHLORIDE 0.9% 10ML SYR (RAD ONLY) 10 ML IV (22:33)
[2025-03-17] MEDS: 0.9 % SODIUM CHLORIDE 50 ML VIAL IV (22:33)
--- NOTE | 2025-03-17 22:40 | ECG_ITS ---
APPROVED REPORT Exam: Resting ECG HR:71 bpm ECG Measurements Heart Rate 71 AXES LA 115 P 66 QRSd 88 QRS 65 QT 356 T 53 QTc 378 Conclusion SINUS RHYTHM WITH SHORT LA INTERVAL ST DEVIATION AND MODERATE T-WAVE ABNORMALITY, CONSIDER ANTEROLATERAL ISCHEMIA [-0.1+ mV T-WAVE IN V3-V6] ABNORMAL ECG UNCONFIRMED REPORT Electronically signed by : OBED GORDON, 03/20/2025 01:17:49
[2025-03-17 23:25] VITALS: BP 122/72; PULSE 78; RESP 16; TEMP 36.6; O2SAT 98
[2025-03-17] MEDS: KETOROLAC 30MG/ML VIAL 15 MG IV (23:43)
[2025-03-17] MEDS: AMOXICILLIN/CLAVULANATE POTASSIUM 875/125MG TABLET 1 EACH PO (23:44)
[2025-03-17] MEDS: AZITHROMYCIN 250MG TABLET 500 MG PO (23:44)
[2025-03-17 23:47] VITALS: BP 122/72; PULSE 78; RESP 16; TEMP 36.6; O2SAT 98
== END 2025-03-17 23:54 | disposition home or self-care (01) ==
PROVIDERS: Emergency Provider Student in an Organized Health Care Education/Training Program; PCP Family Medicine
DX: J18.9 Pneumonia, unspecified organism (principal); R07.9 Chest pain, unspecified; F17.210 Nicotine dependence, cigarettes, uncomplicated; I45.6 Pre-excitation syndrome
CPT/HCPCS: 71045; 71275; 80053; 84484; 84703; 85025; 85378; 86140; 93005; 96374; 99285; J1885; Q9967

== ENCOUNTER 2025-05-12 16:02 | Outpatient (CLI) | payer OTHER, SELFPAY ==
[2025-05-12 20:06] LABS: Anion Gap 11.1 mEq/L (5-15); Blood Urea Nitrogen 8 mg/dl (7-17); Calcium 9.5 mg/dl (8.4-10.2); Carbon Dioxide 22 mmol/L (22.0-30.0); Chloride 108 mmol/L (98-107); Creatinine,Serum 0.50 mg/dl (0.52-1.04); Estimated Glomerular Filt Rate 139 ml/min (>60); GFR (African American) 168 ML/MIN (>60); Glucose 109 mg/dl (74-100); Potassium 4.1 mmoL/L (3.5-5.1); Sodium 137 mmol/L (136-145)
--- OUTSIDE RECORDS SUMMARY | 2025-05-13 11:13 | XMS_ITS | Encounter Summary ---
Author Organization [employer] ([place], [place], [place], [place]) Address [address] [place] [address] Care Team Providers Care Pet Caregiver Name Role Phone Unavailable Primary Care Provider Unavailabl e Encounter Details Date Type Department Care Team (Late st Contact Info) Description 04/26/2022 Transcribed Document [facility] [place] [address] [place] [address] ProviderSegundo MD [facility] [place] [address] Social History Tobacco Use Types [...]
--- OUTSIDE RECORDS SUMMARY | 2025-05-13 11:13 | XMS_ITS | Clinical Summary ---
Author Organization [employer] ([place], [place], [place], [place]) Address [address] [place] [address] Care Team Providers Care Manager Work Name Role Phone Unavailable Primary Care Provider [...]
--- OUTSIDE RECORDS SUMMARY | 2025-05-13 11:13 | XMS_ITS | Encounter Summary ---
Author Organization [employer] ([place], [place], [place], [place]) Address [address] [place] [address] Care Team Providers Care Seasoner Name Role Phone Unavailable Primary Care Provider Unavailabl e Encounter Details Date Type Department Care Team (Late st Contact Info) Description 04/29/[address] [facility] [place] [facility] [place] [address] ProviderSegundo MD [address] [place] [id number] Social History Tobacco Use Types Packs/Day [...] Conversion Note - Segundo ProviderMD - 04/29/2022 10:56 AM CDT PAT [...] Source : Measured Height Entry Format : Stanly Height, Feet : 5 ft(Converted to: 152 cm, 60 Inch) Height, Inches : 4 Inch(Converted to: 0 ft 4 Inch, 10.16 cm) Clinical Height : 162.56 cm Weight Source : Standing scale Weight Entry Format : Stanly MARIA INES BENJAMIN RN - 04/29/2022 10:56 EDT Clinical Dosing Weight : 54.27 kg Weight, Pounds : 119.4 lb Body Surface Area (BSA) : 1.57 m2 Body Mass Index : 20.5 kg/m2 MARIA INES BENJAMIN RN - 04/29/2022 11:42 EDT [place] Body Weight : 54 kg MARIA INES [...] INES BENJAMIN RN - 04/29/2022 11:42 EDT [place] Suicide Severity Rating Scale (C-SSRS) CSSRS Past [...] a Support System? : Yes MARIA INES EBNJAMIN RN - 04/29/2022 11:28 EDT Teaching/Learning Assessment [...] #2 Relationship : . Primary Language : Paraguayan Communication Barrier : None Special Delivery Mail Carrier Needed : No MARIA INES BENJAMIN RN [...]
--- OUTSIDE RECORDS SUMMARY | 2025-05-13 11:13 | XMS_ITS | Encounter Summary ---
Author Organization [employer] ([place], [place], [place], [place]) Address [address] [place] [address] Care Team Providers Care Filters Assembler Name Role Phone Unavailable Primary Care Provider Unavailabl e Encounter Details Date Type Department Care Team (Late st Contact Info) Description 04/29/2022 Transcribed Document [facility] [place] [facility] [place] [address] ProviderSegundo MD [facility] [place] [address] Social History Tobacco Use Types [...] Conversion Note - Segundo ProviderMD - 04/29/2022 12:46 PM CDT [facility] [place] IntraOp Summary Primary Physician: CHARANJIT SOTELO MD-ORT Finalized Date/Time: 04/29/22 13:47:44 Pt. Name: CITLALLI NAILSTETO SILVA /Sex: 1985 Female Med Rec #: [id number] Physician: CHARANJIT SOTELO MD-ORT Financial #: [id number] Pt. Type: O Room/Bed: [facility]/4 Admit/Disch: 04/29/22 05:15:00 - Institution: [facility] [place] IntraOp Case Attendance Entry 1 Entry 2 Entry 3 Case Attendee CHARANJIT SOTELO MD-ORT Bowling, Jachob, SPRATLIN, WILLIAM, CRNA [email or web address] Role Performed Surgeon/Proceduralist, DERIVATIVES TRADER/Nurse Conference Organizer DERIVATIVES TRADER/Nurse Conference Organizer First Time In 04/29/22 12:21:00 04/29/22 12:21:00 04/29/22 12:21:00 Time Out 04/29/22 13:40:00 04/29/22 13:40:00 04/29/22 13:40:00 Procedure Lumbar Laminectomy Lumbar Laminectomy Lumbar Laminectomy Discectomy 1 Level Discectomy 1 Level Discectomy 1 Level Other Attendee Superficial Wound Closed By: Last Modified By: Debbie Bautista, Debbie Cheney, RN Debbie Bautista, CARLY 04/29/22 13:39:50 04/29/22 13:39:50 04/29/22 13:39:50 Entry 4 Entry 5 Entry 6 Case Attendee SANDI DUQUE PA-C Wellnitz, Sara, YESSY ALBA, OR WARREN Role Performed Physician contract administrative assistant Process Safety Engineer, First Scrub, First Time In 04/29/22 12:21:00 [...] Attendee SANDI DUQUE PA-C Role Performed Physician contract administrative assistant Time In 04/29/22 12:21:00 Time Out 04/29/22 13:40:00 Procedure Lumbar Laminectomy Discectomy 1 Level Other Attendee Superficial Wound Closed By: Last Modified By: Debbie Bautista, CARLY 04/29/22 13:39:50 [facility] IntraOp Case Attendance Audit 04/29/22 13:40:10 Fur Comber: PALOMA Modifier: PALOMA 4 <+> Case Attendee 4 <*> Procedure Lumbar Laminectomy Discectomy 1 Level 04/29/22 13:39:50 Fur Comber: PALOMA Modifier: WELLJONAHA 1 <+> Time Out 1 <*> Procedure [...] Lumbar Laminectomy Discectomy 1 Level 04/29/22 12:51:11 Fur Comber: PALOMA Modifier: WELLNISA 1 <+> Time In [...] [facility] IntraOp Case Times Audit 04/29/22 13:39:46 Fur Comber: PALOMA Modifier: WELLNISA 1 <+> Out Room Time 1 <+> Stop Time 1 <*> Stop Time 04/29/22 13:30:00 04/29/22 13:38:03 Fur Comber: PALOMA Modifier: WELLJONAHA <+> 1 Stop Time [facility] IntraOp Cautery [...] 11:44:46 [facility] IntraOp Cautery Audit 04/29/22 13:21:50 Fur Comber: PALOMA Modifier: PALOMA <+> 1 ID Number [...] [facility] IntraOp Counts Verification Audit 04/29/22 12:50:30 Fur Comber: PALOMA Modifier: PALOMA 1 <*> Procedure Lumbar [...] OR (Scrub) TECH Count Performed By Debbie Bautista, RN (RN) Last Modified By: Debbie Bautista [...] Debbie Bautista RN, Accompanied by Dallas Gutiérrez [email or web address] Last Modified By: Debbei Bautista RN 04/29/22 13:38:07 [facility] IntraOp Dressing [...] RN 04/29/22 12:51:36 [facility] IntraOp General Case Paper Inserter 1 Case Information OR OR 01 [facility] [...] Entry 3 Medication/Irrigant thrombin 5000units SPNG SURGFOAM [id number] Marcaine 0.5% w/ topical kit epinephrine 1:200,000 (recombinant) - 30ml vial - [id number] Combo Med List Time Administered Route of [...] Positioned By Debbie Bautista, CARLY, Dallas Gutiérrez [email or web address], CHARANJIT SOTELO MD-ORT, SANDI DUQUE PA-C [...] Modified By: Debbie Bautista RN 04/29/22 12:55:44 [facility] IntraOp X-Ray and Images Entry 1 X-Ray/Imaging Type Fluoroscopy Fluoroscopy Type C-Arm Site LOWER BACK Spray Machine Operator Name Lucy Cartwright, Yard Rigger Protective Devices Yes Used Last Modified By: Debbie Bautista RN 04/29/22 12:56:19 Case Comments <None> Finalized By: Debbie Bautista, RN Document Signatures Signed By: Debbie Bautista RN 04/29/22 13:47 documented in this encounter Plan of Treatment Not on file documented as of this encounter Visit Diagnoses Not on filedocumented in this encounter
--- OUTSIDE RECORDS SUMMARY | 2025-05-13 11:13 | XMS_ITS | Encounter Summary ---
Author Organization [facility] ([place], [place], [place], [place]) Address [address] [place] [address] Care Team Providers Care Knockdown Worker Name Role Phone Unavailable Primary Care Provider Unavailabl e Encounter Details Date Type Department Care Team (Late st Contact Info) Description 04/29/2022 Transcribed Document [facility] [place] Family Medicine [facility] [place] [address] ProviderSegundo MD [address] [place] [address] Social History Tobacco Use Types Packs/Day Years Used Date Smoking Tobacco: Never Assessed Comments Unknown Sex and Gender Information Value Date Recorded Sex Assigned at Female 04/05/2022 9:05 PM CDT Legal Sex Female 9:05 PM CDT Gender Identity Female 04/05/2022 9:05 PM CDT Sexual Orientation Not on file documented as of this encounter Miscellaneous Notes * Cerner Conversion Note - Segundo Alcaraz MD - 04/29/2022 10:02 AM CDT Patient: VEENA NAILS Age: 36 years Sex: Female : 1985 Associated Diagnoses: None Author: SYED SOTELO MD-ORT Operative Report DATE OF PROCEDURE April 29, 2022 PREOPERATIVE DIAGNOSIS(ES): 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 SURGEON: Syed Sotelo MD. NEONATAL ICU COORDINATOR: Mateo Vale The duties of the health care assistantJonnie to help assist transferring the patient [...] GERD Hypertension PT ST Supraventricular tachycardia Stable Iqubt-Ecxjjzzuz-Rmpxw. PATIENT QUALITY REPORTING SERVICES Timeout Antibiotics hpcwzz-zsxed-edrxexutjt cephalosporin Antibiotics administered less than 1 hour [...] not see that to be necessary. Sincerely-Dr. Syed Sotelo M.D. April 29, 2022 Syed Sotelo M.D. documented in this encounter Plan of Treatment Not on file documented as of this encounter Visit Diagnoses Not on filedocumented in this encounter
--- OUTSIDE RECORDS SUMMARY | 2025-05-13 11:13 | XMS_ITS | Encounter Summary ---
Author Organization [employer] ([place], [place], [place], [place]) Address [address] [place] [address] Care Team Providers Care Industrial Service Technician Name Role Phone Unavailable Primary Care Provider Unavailabl e Encounter Details Date Type Department Care Team (Late st Contact Info) Description 04/26/2022 Transcribed Document [facility] [place] [facility] [place] [address] ProviderSegundo MD [address] [place] [address] Social History Tobacco Use Types Packs/Day [...] Source : Measured Height Entry Format : Roslyn Height, Feet : 5 ft(Converted to: 152 cm, 60 Inch) Height, Inches : 4 Inch(Converted to: 0 ft 4 Inch, 10.16 cm) Clinical Height : 162.56 cm Weight Source : Standing scale Weight Entry Format : Roslyn Clinical Dosing Weight : 56.36 kg Weight, Pounds : 124 lb Body Surface Area (BSA) : 1.6 m2 Body Mass Index : 21.3 kg/m2 [place] Body Weight : 54 kg Beverly Kee [...] Patient want a COVID-19 Vaccine? : No eBverly Kee RN - 04/26/2022 15:22 EDT Infectious [...] Beverly Kee RN - 04/26/2022 15:22 EDT [place] Suicide Severity Rating Scale (C-SSRS) CSSRS Past [...] #2 Relationship : . Primary Language : Yemeni Communication Barrier : None Interlocker Maintainer Needed : No Beverly Kee RN - [...] Beverly Kee RN - 04/26/2022 15:22 EDT Electronically signed by Lakhwinder Flores Conversion Decorating Machine Tender Cerner at 01/29/2023 5:09 PM CDT documented in this encounter Plan of Treatment Not on file documented as of this encounter Visit Diagnoses Not on filedocumented in this encounter
--- OUTSIDE RECORDS SUMMARY | 2025-05-13 11:13 | XMS_ITS | Encounter Summary ---
Author Organization [employer] ([place], [place], [place], [place]) Address [address] [place] [address] Care Team Providers Care Heavy Equipment Operator/Paver Name Role Phone Unavailable Primary Care Provider Unavailabl e Encounter Details Date Type Department Care Team (Late st Contact Info) Description 04/29/2022 Transcribed Document [facility] [place] [facility] [place] [address] ProviderSegundo MD [place] [address] Social History Tobacco Use Types [...] Conversion Note - Historical ProviderMD - 04/29/2022 2:49 PM CDT [address] [address] VEENA SHELTON :1985 Visit Time:04/29/2022 What to do next Instructions From Your Care Team Discharge Follow Up Instructions: Follow-up in my office, 12-14 days.Prescription.-Check intake sheet from my office for follow-up date and appointment time Activity: Una dressing. Do not remove. May shower with [...] SOTELO When 05/12/2022 02:15 PM EDT Where: [address] [place] [address] [address] [place] [address]- Business (1) Medications What How Much When Instructions Next Dose acetaminophen-oxyCODONE (Percocet 7.5/ 325 oral tablet) 2 Tablet(s) Oral Three Times A Day as needed for for pain Pickup at [facility] acetaminophen-hydrocodone ([place] 7.5 mg-325 mg oral tablet) 1 Tablet(s) [...] Topical Three Times A Day Pickup at [facility] omeprazole 20 Milligram(s) Oral At Bedtime QUEtiapine (SEROquel) 500 Milligram(s) Oral At Bedtime Pharmacy Information [facility] [address] [place] [address] [phone] Take your medications faithfully. Do NOT skip [...] health care provider approves. Standard walker 1. production department supervisor your walker. Do not slide your [...] provider. Document Revised: 11/25/2020 Document Reviewed: 08/21/2019 [employer] Patient Education ?? 2020 [employer]. Surgical Spinal Decompression Spinal decompression is [...] including vitamins, herbs, eye drops, creams, and bkfk-dab-qngclqj medicines. ??? Any problems you or family [...] tells you to take them. ??? Taking jxgi-unw-yljerft medicines, vitamins, herbs, and supplements. Surgery safety [...] provider. Document Revised: 01/13/2021 Document Reviewed: 01/13/2021 Elsewutabout Patient Education ?? 2020 Elsevier Inc. Lumbar Diskectomy, Care After This sheet [...] these instructions at home: Medicines ??? Take thuo-jvh-bqyeovy and prescription medicines as told by your [...] keep your urine pale yellow. ? Take vlqn-ptd-zfcddau or prescription medicines. ? Eat foods that [...] and water are not available, use hand portfolio consultant. ? Change your dressing as told by [...] safe to drive. General instructions ??? Take svxn-fko-bbmzsut and prescription medicines only as told by [...] provider. Document Revised: 01/13/2021 Document Reviewed: 01/13/2021 Elsewutabout Patient Education ?? 2020 Elsevier Inc. General [...] activities are safe for you. ??? Take hhxa-pyx-htergyh and prescription medicines only as told by [...] provider. Document Revised: 06/10/2021 Document Reviewed: 01/07/2021 [employer] Patient Education ?? 2020 [employer]. acetaminophen and oxycodone (a SEET a MIN [...] may report side effects to FDA at 1-467-XJV-7951. What other drugs will affect acetaminophen and [...] affect acetaminophen and oxycodone, including prescription and fneh-pph-pqpdzmo medicines, vitamins, and herbal products. Not all [...] to ensure that the information provided by [employer]. ('[employer]') is accurate, up-to-date, and complete, but no guarantee is made to that effect. Drug information contained herein may be time sensitive. [employer]opos[employer]com information has been compiled for use by healthcare practitioners and consumers in the [place] and therefore [employer]os[employer]com does not warrant that uses outside of the [place] are appropriate, unless specifically indicated otherwise. [employer] (Formerly Nearly[employer])s drug information does not endorse drugs, diagnose patients or recommend therapy. [employer] (Former[employer]s drug information is an informational resource designed [...] effective or appropriate for any given patient. [employer] does not assume any responsibility for any aspect of healthcare administered with the aid of information hoopos.com provides. The information contained herein is not intended to cover all possible uses, directions, precautions, warnings, drug interactions, allergic reactions, or adverse effects. If you have questions about the drugs you are taking, check with your doctor, nurse or pharmacist. Copyright 7010-0665 [employer]queeze[employer]M. Version: 20.03. Revision Date: 11/13/2020. Emergency Awareness [...] Assistance with quitting is available by contacting 8-476-XQCC-NOW. This is a free resource providing counseling, support, and referral. Or you may contact your personal physician. [employer] Suicide Prevention Lifeline: The National Suicide Prevention [...] of a heart attack, DON???T DELAY. Call 9-1-1 immediately and seek help. If someone collapses, [...] CPR? There are two easy steps: Call 9--1 if you see a teen or adult [...] range between ( 1.0 and 7.0 ) [place] #: 0.44 K/uL -- Normal range between ( 0.24 and 0.82 ) Eos #: 0.08 K/uL -- Normal range between ( 0.04 and 0.54 ) [place] %: 6.5 % -- Normal range between [...] 30.0 and 100.0 ) Patient Name:VEENA SHELTON I have received this information and was given the opportunity to ask questions. Patient/Coffee Bar Attendant Name: Patient/Coffee Bar Attendant Signature: Relationship to Patient: Clinician/Hospital Coffee Bar Attendant Signature: Date: documented in this encounter Plan of Treatment Not on file documented as of this encounter Visit Diagnoses Not on filedocumented in this encounter
--- OUTSIDE RECORDS SUMMARY | 2025-05-13 11:13 | XMS_ITS | Encounter Summary ---
Author Organization [employer] ([place], [place], [place], [place]) Address [address] [place] [address] Care Team Providers Care Montessori Program Director Name Role Phone Unavailable Primary Care Provider Unavailabl e Encounter Details Date Type Department Care Team (Late st Contact Info) Description 04/29/2022 Transcribed Document [facility] [place] Family Medicine [facility] [address] ProviderSegundo MD [facility] [place] [address] Social History Tobacco Use Types [...] Segundo ProviderMD - 04/29/2022 12:46 PM CDT [facility] Main OR PreOp Summary Primary Physician: CHARANJIT SOTELO MD-ORT Finalized Date/Time: 04/29/22 13:47:03 Pt. Name: VEENA SHELTON /Sex: 1985 Female Med Rec #: [id number] Physician: CHARANJIT SOTELO MD-ORHakan Financial #: [id number] Pt. Type: O Room/Bed: [facility]/4 Admit/Disch: 04/29/22 05:15:00 - Institution: [facility] [place] PreOp Case Times Entry 1 In Preop 04/29/22 11:27:00 Ready for Holding n/a Room Patient Ready for 04/29/22 11:45:00 Surgery Patient Out of Preop 04/29/22 12:20:00 Patient Out of n/a Holding Room Last Modified By: MARIA INES BENJAMIN RN 04/29/22 13:47:00 [facility] PreOp Case Times Audit 04/29/22 13:47:00 Fire Control Technician: CASSIDYMayiLisset Modifier: [email or web address] <+> 1 Patient Out of Preop Finalized By: MARIA INES BENJAMIN, RN Document Signatures Signed By: MARIA INES BENJAMIN RN 04/29/22 13:47 Electronically signed by Mark [facility] Conversion Stopper Setter Cerner at 01/29/2023 5:08 PM CDT documented in this encounter Plan of Treatment Not on file documented as of this encounter Visit Diagnoses Not on filedocumented in this encounter
--- OUTSIDE RECORDS SUMMARY | 2025-05-13 11:13 | XMS_ITS | Encounter Summary ---
Author Organization [employer] ([place], [place], [place], [place]) Address [address] [place] [address] Care Team Providers Care Airport Location Manager Name Role Phone Unavailable Primary Care Provider Unavailabl e Encounter Details Date Type Department Care Team (Late st Contact Info) Description 04/26/2022 Transcribed Document [facility] [place] Family Medicine [facility] [place] [address] ProviderSegundo MD [address] [place] [address] Social History Tobacco Use Types Packs/Day [...] Cerner Conversion Note - Segundo ProviderMD - 04/26/2022 1:04 PM CDT Patient: VEENA SHELTON Age: 36 Years Sex: Female : 1985 Chief Complaint Low back pain Primary Care Provider JOHNNY MONDRAGON (REF), -[facility] History of Present Illness 36 year old [...] used an assistive device. Pt saw Dr. Brothres and was determined to have severe DDD [...] (post-traumatic stress disorder) SVT (supraventricular tachycardia) WPW (Bfgxq-Zasgxqxyu-Iwqnf syndrome) Procedure/Surgical History Cardiac ablation using fluoroscopy guidance, EGD - Esophagogastroduodenoscopy, Tubal ligation. Home Medications (8) Active ALPRAZolam 0.5 mg, Oral, TID bisoprolol 5 mg, Oral, At Bedtime Depakote 500 mg, Oral, At Bedtime Depakote 250 mg, Oral, Daily ergocalciferol 50 mcg (2000 intl units) oral capsule 50 mcg = 1 Cap, Oral, Daily [place] 7.5 mg-325 mg oral tablet 1 Tab, [...] of COPD, DMII. Father with PMH of [place]. . Immunizations COVID and Flu are NUTD [...] Fructosamine 222 Prealbumin 21.9 Vitamin d 27.2 Electronically signed by Mark, Lakhwinder Conversion Public Health Nutritionist Cerner at 01/29/2023 5:04 PM CDT documented in this encounter Plan of Treatment Not on file documented as of this encounter Visit Diagnoses Not on filedocumented in this encounter
--- OUTSIDE RECORDS SUMMARY | 2025-05-13 11:14 | XMS_ITS | Encounter Summary ---
Author Organization [employer] ([place], [place], [place], [place]) Address [address] [place] [address] Care Team Providers Care Rougher Merchant Mill Name Role Phone Unavailable Primary Care Provider Unavailabl e Encounter Details Date Type Department Care Team (Late st Contact Info) Description 04/29/2022 Transcribed Document [facility] [place] [facility] [place] [address] ProviderSegundo MD [facility] [place] [address] Social History Tobacco Use Types [...] Segundo ProviderMD - 04/29/2022 12:46 PM CDT [facility] [place] Summary Primary Physician: CHARANJIT SOTELO MD-ORHakan Finalized Date/Time: 04/29/22 14:53:34 Pt. Name: VEENA SHELTON /Sex: 1985 Female Med Rec #: [id number] Physician: CHARANJIT SOTELO MD-ORT Financial #: [id number] Pt. Type: O Room/Bed: [facility] Admit/Disch: 04/29/22 05:15:00 - Institution: [facility] OR PACU Case Times Entry 1 In PACU I 04/29/22 13:40:00 Ready for PACU 04/29/22 14:24:00 Discharge Discharge from PACU 04/29/22 14:24:00 I Last Modified By: Leatha Arellano Rn 04/29/22 14:53:24 Finalized By: Leatha Arellano, Rn Document Signatures Signed By: Leatha Arellano Rn 04/29/22 14:53 Electronically signed by Mark [facility] Conversion Telephone Operator Cerner at 01/29/2023 5:01 PM CDT documented in this encounter Plan of Treatment Not on file documented as of this encounter Visit Diagnoses Not on filedocumented in this encounter
--- OUTSIDE RECORDS SUMMARY | 2025-05-13 11:14 | XMS_ITS | Clinical Summary ---
Author Organization [facility] yste Address [address] [place] [address] Care Team Providers Care Service Worker Name Role Phone Luis Martinez Primary Care Provider [phone] Social History Tobacco Use Types Packs/Day Years Used Date Smoking Tobacco: Never Assessed Abuse Screen Answer Date Recorded Unsafe at Home or Work/School Not on file Feels Threatened by Someone? Not on file 06/2023 Does Anyone Keep You from Co ntacting Others or Doint Things Outside the Home? Not on file 07/17/2023 Physical Sign of Abuse Present Not on file 1 Housing Stability Answer Date Recorded Current Living Arrangements Not on file 06/2023 Potentially Unsafe Housing Conditions Not on shilpa e 07/17/2023 Family and Community Support Answer Canelo e Recorded Help with Day-to-Day Activities Not on file 07/17/2023 Lonely or Isolated Not on file 07/17/2023 Employment Answer Date Recorded Do you want help finding or keeping work or a marian b? Not on file 07/17/2023 Disabilities Answer Date Recorded Concentrating, Remembering, or Making Decisions Difficulty Not on file 07/17/2023 Doing Errands Independently Difficulty Not on fi le 07/17/2023 Education Answer Date Recorded Help with school or training? Not on file Preferred Language Not on file 07/17/2023 Comments Unknown Sex and Gender Information Value Date Recorded Sex Assigned at Not on file Legal Sex Female 10:18 AM EDT Gender Identity Not on file Sexual Orientation Not on file Plan of Treatment Upcoming Encounters Date Type Department Care Team (Late st Contact Info) Description 07/31/2025 2:00 PM EDT Office Visit [facility] NE[facility] [address] [place] [address] Mathew Isatu Coello, HIGH SCHOOL FOOTBALL COACH [address] [place] [address] Health Maintenance Due Date Last Done Comments Annual Gynecologic Pelvic an d Breast Exam 1985 TDAP/TD VACCINES (1 - Tdap) 2006 PAP SMEAR 2008 COVID-19 Vaccine ( - 2023-2 5 season) 2024 ANNUAL PHYSICAL 10/16/2024 HEPATITIS C SCREENING 10/16/2024 INFLUENZA VACCINE 07/09/2025 Pneumococcal Vaccine 0-49 Aged Out No longer eligible based on patient's age to complete this topic Insurance Care Teams Service Worker Relationship Specialty Start Date End Date Luis Martinez DO [address] [place] [id number] PCP - General Internal Medicine 07/22/24
--- OUTSIDE RECORDS SUMMARY | 2025-05-13 11:14 | XMS_ITS | Referral Summary ---
Author Organization [employer] ([place], [place], [place], [place]) Address [address] [place] [address] Care Team Providers Care Director Airport Name Role Phone Unavailable Primary Care Provider [...]
--- OUTSIDE RECORDS SUMMARY | 2025-05-13 11:14 | XMS_ITS | Encounter Summary ---
Author Organization [employer] ([place], [place], [place], [place]) Address [address] [place] [address] Care Team Providers Care Outside Plant Field Engineer Name Role Phone Unavailable Primary Care Provider Unavailabl e Encounter Details Date Type Department Care Team (Late st Contact Info) Description 04/29/2022 Transcribed Document [facility] [place] Family [place] [facility] [address] ProviderSegundo MD [facility] [place] [address] Social History Tobacco Use Types [...] Conversion Note - Historical ProviderMD - 04/29/2022 3:48 PM CDT Event Note [...]
--- OUTSIDE RECORDS SUMMARY | 2025-05-13 11:14 | XMS_ITS | Encounter Summary ---
Author Organization [employer] ([place], [place], [place], [place]) Address [address] [place] [address] Care Team Providers Care Stock Shipper Name Role Phone Unavailable Primary Care Provider Unavailabl e Encounter Details Date Type Department Care Team (Late st Contact Info) Description 03/03/2022 Transcribed Document [facility] [place] [facility] [place] [address] ProviderSegundo MD [address] [place] [address] Social History Tobacco Use Types Packs/Day [...] Source : Stated Height Entry Format : Martin Height, Feet : 5 ft(Converted to: 152 cm, 60 Inch) Height, Inches : 4 Inch(Converted to: 0 ft 4 Inch, 10.16 cm) Clinical Height : 162.56 cm Weight Source : Standing scale Weight Entry Format : Martin Clinical Dosing Weight : 58.18 kg Weight, Pounds : 128 lb Body Surface Area (BSA) : 1.62 m2 Body Mass Index : 22 kg/m2 [place] Body Weight : 54 kg Lucy Mitchell [...] Lucy Mitchell Rn - 03/03/2022 10:12 EDT [place] Suicide Severity Rating Scale (C-SSRS) CSSRS Past [...] #2 Relationship : . Primary Language : Cameroonian Communication Barrier : None Java Tech Lead Needed : No Lucy Mitchell Rn - [...] Lucy Mitchell Rn - 03/03/2022 10:12 EDT documented in this encounter Plan of Treatment Not on file documented as of this encounter Visit Diagnoses Not on filedocumented in this encounter
--- OUTSIDE RECORDS SUMMARY | 2025-05-13 11:14 | XMS_ITS | Encounter Summary ---
Author Organization [employer] ([place], [place], [place], [place]) Address [address] [place] [address] Care Team Providers Care Tire Mold Engraver Name Role Phone Unavailable Primary Care Provider Unavailabl e Encounter Details Date Type Department Care Team (Late st Contact Info) Description 03/03/2022 Transcribed Document [facility] [place] Family Medicine [facility] [place] [address] ProviderSegundo MD [address] [place] [address] Social History Tobacco Use Types Packs/Day [...] Cerner Conversion Note - Segundo ProviderMD - 03/03/2022 10:00 AM CDT Patient: VEENA NAILS Age: 36 Years Sex: Female : 1985 Chief Complaint Low back pain Primary Care Provider J[facility]NN[facility]DRAGON (REF[facility] History of Present Illness This patient is [...] - patient has received cardiac clearance from [facility] Cardiology/Liat Cole APRN who states she is [...] and CXR pending (will be done at [facility]). Discussed with Dr. Sotelo's office, surgery for [...] HTN (hypertension) PTSD (post-traumatic stress disorder) WPW (Unjzz-Uxfzvwpby-Bizpp syndrome) MVP Procedure/Surgical History Cardiac ablation using fluoroscopy guidance, EGD - Esophagogastroduodenoscopy, Tubal ligation. Home Medications (7) Active ALPRAZolam 0.5 mg, Oral, TID bisoprolol 5 mg, Oral, At Bedtime Depakote 500 mg, Oral, At Bedtime Depakote 250 mg, Oral, Daily [place] 7.5 mg-325 mg oral tablet 1 Tab, [...] pending Cotinine - pending Electronically signed by [facility] Conversion Supervisor Wet Pour Cerner at 01/29/2023 5:06 PM CDT documented in this encounter Plan of Treatment Not on file documented as of this encounter Visit Diagnoses Not on filedocumented in this encounter
--- OUTSIDE RECORDS SUMMARY | 2025-05-13 11:14 | XMS_ITS | Encounter Summary ---
Author Organization [employer] ([place], [place], [place], [place]) Address [address] [place] [address] Care Team Providers Care Portfolio Director Name Role Phone Unavailable Primary Care Provider Unavailabl e Encounter Details Date Type Department Care Team (Late st Contact Info) Description 04/29/2022 Transcribed Document [facility] [place] [facility] [place] [address] ProviderSegundo MD [facility] [place] [address] Social History Tobacco Use Types [...] Conversion Note - Segundo ProviderMD - 04/29/2022 11:49 AM CDT Spiritual Care Assessment Entered On: 04/29/2022 14:42 EDT Performed On: 04/29/2022 11:49 EDT by PUJA WILKINS Chaplain General Information Initial Visit : Yes Referred by : Nurse Referral Reason Comment : pre-surgery prayer Ministry Provided to : Patient, Family/Significant other Spiritual/Emotional Acuity : Low Spiritual Framework : Unknown Methodist Preference : Unknown PUJA WILKINS Chaplain - [...] strengths identified, Relationship strengths identified Spiritual and Methodist : Prayer shared PUJA WILKINS Chaplain - 04/29/2022 14:41 EDT Electronically signed by Mark [facility] Conversion Revenue Coordinator Cerner at 01/29/2023 5:00 PM CDT documented in this encounter Plan of Treatment Not on file documented as of this encounter Visit Diagnoses Not on filedocumented in this encounter
--- OUTSIDE RECORDS SUMMARY | 2025-05-13 11:14 | XMS_ITS | Encounter Summary ---
Author Organization [email or web address] ([place], [place], [place], [place]) Address [address] [place] [address] Care Team Providers Care Lead Solutions Architect Name Role Phone Unavailable Primary Care Provider Unavailabl e Encounter Details Date Type Department Care Team (Late st Contact Info) Description 04/29/2022 Transcribed Document [facility] [place] [facility] [place] [address] ProviderSegundo MD [address] [place] [address] Social History Tobacco Use Types [...] health care provider approves. Standard walker 1. automatic line set up mechanic your walker. Do not slide your standard [...] provider. Document Revised: 11/25/2020 Document Reviewed: 08/21/2019 [employer] Patient Education ? 2020 [place]. Surgical Spinal Decompression Spinal decompression is a [...] including vitamins, herbs, eye drops, creams, and dubu-mwi-nibzagw medicines. ??? Any problems you or family [...] tells you to take them. ??? Taking eylv-rtx-hjoolie medicines, vitamins, herbs, and supplements. Surgery safety [...] provider. Document Revised: 01/13/2021 Document Reviewed: 01/13/2021 [employer] Patient Education ? 2020 [employer] Lumbar Diskectomy, Care After This sheet [...] these instructions at home: Medicines ??? Take obia-acg-oqzkpne and prescription medicines as told by your [...] keep your urine pale yellow. ? Take jqqy-rwp-bsuhgnk or prescription medicines. ? Eat foods that [...] and water are not available, use hand contact lens fitter. ? Change your dressing as told by [...] safe to drive. General instructions ??? Take kjcx-ybl-oznarqz and prescription medicines only as told by [...] provider. Document Revised: 01/13/2021 Document Reviewed: 01/13/2021 [employer] Patient Education ? 2020 [employer] Pharmacology General Anesthesia, Adult, Care After [...] activities are safe for you. ??? Take frlb-csx-ikiahyr and prescription medicines only as told by [...] provider. Document Revised: 06/10/2021 Document Reviewed: 01/07/2021 [employer] Patient Education ? 2020 [employer] documented in this encounter Plan of Treatment Not on file documented as of this encounter Visit Diagnoses Not on filedocumented in this encounter
== END 2025-05-12 23:59 | disposition home or self-care (01) ==
LOC: LAB.DROPOF 05-13 11:10
PROVIDERS: PCP Family Medicine; Visit Provider Family Medicine
DX: R51.9 Headache, unspecified (principal)
CPT/HCPCS: 80048